=== PATIENT | female | born 1975 | race Caucasian/White ===

== ENCOUNTER 2021-05-01 18:38 | Emergency (ER) | payer OTHER ==
[2021-05-01 20:37] VITALS: BP 122/77; PULSE 69; RESP 18; TEMP 98.3
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
== END 2021-05-01 20:56 | disposition home or self-care (01) ==
LOC: EC 18:38
DX: Z02.89 Encounter for other administrative examinations (principal); F17.200 Nicotine dependence, unspecified, uncomplicated; F12.90 Cannabis use, unspecified, uncomplicated
CPT/HCPCS: 99282

== ENCOUNTER 2021-10-03 04:37 | Emergency (ER) | payer OTHER ==
[2021-10-03 04:42] VITALS: BP 137/95; PULSE 91; RESP 18; TEMP 97.9
--- NOTE | 2021-10-03 04:55 | ED ---
Upper Extremity HPI - General Chief Complaint: Extremity Injury, Upper Stated Complaint: RT wrist injury Time Seen by Provider: 10/03/21 04:40 Source: patient, RN notes reviewed, old records reviewed Mode of arrival: ambulatory Limitations: no limitations - History of Present Illness Initial Comments: This is a 45-year-old female to the emergency today. Patient Dese for evaluation of right wrist pain right wrist pain that occurred well styling her last night. 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 Patient states her pain hurts its worsening that it was yesterday. She did use ice and Tylenol with no help. Patient has no other complaints or injuries MD Complaint: Injury to:: right, wrist ((I) -: hour(s) Other Extremity Injury: Wrist: Right Handedness: right Place: home Severity scale (1-10): 3 Improves With: none Worsens With: none Context: fall Associated Symptoms: denies other symptoms Treatments Prior to Arrival: cold therapy - Related Data Allergies Allergy/AdvReac Type Severity Reaction Status Date / Time ketorolac [From Toradol] Allergy Rash/Hives Verified 10/03/21 04:43 Sulfa (Sulfonamide Allergy Anaphylaxis Verified 10/03/21 04:42 Antibiotics) Review of Systems ROS Statement: Those systems with pertinent positive or pertinent negative responses have been documented in the HPI. ROS Other: All systems not noted in ROS Statement are negative. Past Medical History Past Medical History: Cancer History of Any Multi-Drug Resistant Organisms: None Reported Past Surgical History: Hysterectomy, Tubal Ligation Past Psychological History: No Psychological Hx Reported Smoking Status: Current every day smoker Past Alcohol Use History: None Reported Past Drug Use History: Marijuana General Exam Limitations: no limitations General appearance: alert, in no apparent distress Head exam: Present: atraumatic, normocephalic, normal inspection Eye exam: Present: normal appearance, PERRL, EOMI. Absent: scleral icterus, conjunctival injection, periorbital swelling ENT exam: Present: normal exam, mucous membranes moist Neck exam: Present: normal inspection. Absent: tenderness, meningismus, lymphadenopathy Respiratory exam: Present: normal lung sounds bilaterally. Absent: respiratory distress, wheezes, rales, rhonchi, stridor Cardiovascular Exam: Present: regular rate, normal rhythm, normal heart sounds. Absent: systolic murmur, diastolic murmur, rubs, gallop, clicks GI/Abdominal exam: Present: soft, normal bowel sounds. Absent: distended, tenderness, guarding, rebound, rigid Extremities exam: Present: normal inspection, full ROM, normal capillary refill. Absent: tenderness, pedal edema, joint swelling, calf tenderness Back exam: Present: normal inspection Neurological exam: Present: alert, oriented X3, CN II-XII intact Psychiatric exam: Present: normal affect, normal mood Skin exam: Present: warm, dry, intact, normal color. Absent: rash Course Vital Signs 10/03/21 04:38 Temperature 97.9 F Pulse Rate 91 Respiratory 18 Rate Blood Pressure 137/95 O2 Sat by Pulse 99 Oximetry - Reevaluation(s) Reevaluation #1: 10/03/21 05:16 Medical record is reviewed Reevaluation #2: 10/03/21 05:16 Patient is in no significant acute distress is Reevaluation #3: 10/03/21 05:16 Patient informed of results and questions answered Medical Decision Making - Medical Decision Making 45 female to the emergency department for evaluation of right wrist pain. Patient is having persistent right wrist pain and swelling after injury while doing her hair last night. X-rays negative patient will continue Tylenol at home and cold therapy - Radiology Data Radiology results: report reviewed (X-ray wrist is negative for traumatic injury), image reviewed Disposition Clinical Impression: Right wrist sprain Disposition: HOME SELF-CARE Instructions (If sedation given, give patient instructions): Wrist Injury (ED), Wrist Sprain (ED) Is patient prescribed a controlled substance at d/c from ED?: No Referrals: Nonstaff,Physician [Primary Care Provider] - 1-2 days
--- NOTE | 2021-10-03 05:09 | XR ---
EXAMINATION TYPE: XR wrist complete RT DATE OF EXAM: 10/03/2021 COMPARISON: NONE HISTORY: Wrist pain TECHNIQUE: 4 views FINDINGS: Carpal bones are intact. I see no fracture nor dislocation. Joint spaces are fairly normal. Metacarpals are intact. IMPRESSION: Negative right wrist exam.
== END 2021-10-03 05:26 | disposition home or self-care (01) ==
LOC: EC 04:37
DX: S63.501A Unspecified sprain of right wrist, initial encounter (principal); F17.200 Nicotine dependence, unspecified, uncomplicated; F12.90 Cannabis use, unspecified, uncomplicated; Z88.1 Allergy status to other antibiotic agents; Z88.2 Allergy status to sulfonamides; Z90.710 Acquired absence of both cervix and uterus; Z98.51 Tubal ligation status; X50.0XXA Overexertion from strenuous movement or load, initial encounter
CPT/HCPCS: 99283

== ENCOUNTER 2022-02-24 17:15 | Emergency (ER) | payer OTHER ==
[2022-02-24 17:25] VITALS: PULSE 98; TEMP 98.2
--- NOTE | 2022-02-24 18:43 | ED ---
Extremity Problem HPI - General Chief complaint: Extremity Problem,Nontraumatic Stated complaint: Edema Time Seen by Provider: 02/24/22 18:30 Source: patient Mode of arrival: ambulatory Limitations: no limitations - History of Present Illness Initial comments: Pleasant 46-year-old female with history of chronic pain and recent incarceration presents with a 60 pound weight gain and generalized edema. Patient also complaining of generalized fatigue. Patient states that after she got out of [facility] she was seen at [facility] in [facility]. Patient was treated for hypokalemia. Patient was then released. Patient had a follow-up appointment on Saturday with her new physician and was told to go to the ER. Patient arriving today. Patient is on methadone for chronic pain. Patient was on Lasix when she was in [facility] but is off that medication. Patient complaining of generalized fatigue, exercise intolerance, generalized edema, and a 60 pound weight gain. No headache, no fever or chills, no changes in vision or hearing, no sore throat or difficulty with speech, no neck pain, no chest pain or shortness of breath, no abdominal pain, no nausea or vomiting, no changes in urination or bowel movements, no numbness or tingling, , no skin rashes or lesions. Past medical, surgical, social, and family history reviewed. - Related Data Previous Rx's Medication Instructions Recorded Furosemide [Lasix] 20 mg PO DAILY #20 tab 02/24/22 Potassium Chloride ER [K-Dur 20] 20 meq PO DAILY #20 tab 02/24/22 Allergies Allergy/AdvReac Type Severity Reaction Status Date / Time ketorolac [From Toradol] Allergy Rash/Hives Verified 02/24/22 17:24 Sulfa (Sulfonamide Allergy Anaphylaxis Verified 02/24/22 17:24 Antibiotics) Review of Systems ROS Statement: Those systems with pertinent positive or pertinent negative responses have been documented in the HPI. ROS Other: All systems not noted in ROS Statement are negative. Past Medical History Past Medical History: Cancer History of Any Multi-Drug Resistant Organisms: None Reported Past Surgical History: Hysterectomy, Tubal Ligation Past Psychological History: No Psychological Hx Reported Smoking Status: Current every day smoker Past Alcohol Use History: None Reported Past Drug Use History: Marijuana General Exam - General Exam Comments Initial Comments: Patient in no acute distress. Does not appear to be ill or toxic. Vital signs reviewed Limitations: no limitations General appearance: alert, in no apparent distress Head exam: Present: atraumatic, normocephalic, normal inspection Eye exam: Present: normal appearance, PERRL, EOMI. Absent: scleral icterus, conjunctival injection, periorbital swelling ENT exam: Present: normal exam, normal oropharynx, mucous membranes moist, normal external ear exam. Absent: mucous membranes dry Neck exam: Present: normal inspection, full ROM. Absent: tenderness, meningismus, lymphadenopathy Respiratory exam: Present: normal lung sounds bilaterally. Absent: respiratory distress, wheezes, rales, rhonchi, stridor, chest wall tenderness, accessory muscle use Cardiovascular Exam: Present: regular rate, normal rhythm, normal heart sounds. Absent: systolic murmur, diastolic murmur, rubs, gallop, clicks GI/Abdominal exam: Present: soft, normal bowel sounds. Absent: distended, tenderness, guarding, rebound, rigid Extremities exam: Present: normal inspection, full ROM, normal capillary refill, pedal edema (3+ pitting edema bilaterally), other (No evidence of infectious or vascular insult). Absent: tenderness, joint swelling, calf tenderness Back exam: Present: normal inspection Neurological exam: Present: alert, oriented X3, CN II-XII intact Psychiatric exam: Present: normal affect, normal mood Skin exam: Present: warm, dry, intact, normal color. Absent: rash Course Vital Signs 02/24/22 02/24/22 17:22 22:21 Temperature 98.2 F Pulse Rate 98 Respiratory 22 16 Rate Blood Pressure 128/82 137/93 O2 Sat by Pulse 98 Oximetry - Reevaluation(s) Reevaluation #1: 02/24/22 22:01 Apparently the labs were hemolyzed. I did call lab. The informing that they called down as for redraw. Reevaluation #2: 02/24/22 23:19 Medical record is reviewed Patient resting comfortably room. No distress. All findings discussed. Patient is informed of results and questions answered Patient in no distress Medical Decision Making - Medical Decision Making Generalized edema with fatigue. We will work the patient up for, patient does have chronic pain but denies alcohol abuse. Differential diagnosis, renal failure, nephrotic syndrome, less likely to be a CHF or cirrhosis however this is possible. No specific diagnostic findings to explain the patient's edema. This does raise the suspicion of lymphedema or venous insufficiency. Again, patient had a 60 pound weight gain according to her. According to our records it is 40 pounds in the last few months. Certainly this could be due to body habitus. No evidence of vascular insufficiency, negative Homans sign. No evidence of infectious process. Patient told to follow-up with her regular physician on Saturday. We'll try Lasix and potassium. Patient states that Lasix previously healthy The case was discussed in detail with ED attending physician. Presentation, findings, treatment plan discussed in detail. Patient was told to return to the ER for any signs or symptoms worsen. Told to return immediately if any other problems arise. All questions answered. Treatment plan discussed. Patient in agreement Every effort has been made to ensure accuracy of this dictation. However, due to the limitations of electronic medical records and dictation devices, errors in charting still occur. I did offer admission. However the patient is in no distress and feels well enough to go home. Patient states she will follow-up with her regular physician. I did tell the patient does not hesitate to come back if any symptoms worsen. Supervising Dr. Bolanos - Lab Data Result diagrams: 02/24/22 20:40 02/24/22 22:21 Lab Results 02/24/22 02/24/22 02/24/22 Range/Units 20:40 20:40 22:21 WBC 4.7 (3.8-10.6) k/uL RBC 3.77 L (3.80-5.40) m/uL Hgb 11.6 (11.4-16.0) gm/dL Hct 35.0 (34.0-46.0) % MCV 92.8 (80.0-100.0) fL MCH 30.7 (25.0-35.0) pg MCHC 33.1 (31.0-37.0) g/dL RDW 14.1 (11.5-15.5) % Plt Count 166 (150-450) k/uL MPV 8.2 Neutrophils % 55 % Lymphocytes % 34 % Monocytes % 7 % Eosinophils % 2 % Basophils % 1 % Neutrophils # 2.6 (1.3-7.7) k/uL Lymphocytes # 1.6 (1.0-4.8) k/uL Monocytes # 0.3 (0-1.0) k/uL Eosinophils # 0.1 (0-0.7) k/uL Basophils # 0.0 (0-0.2) k/uL PT 10.2 (9.0-12.0) sec INR 0.9 (<1.2) Sodium (137-145) mmol/L Potassium (3.5-5.1) mmol/L Chloride (98-107) mmol/L Carbon Dioxide (22-30) mmol/L Anion Gap mmol/L BUN (7-17) mg/dL Creatinine (0.52-1.04) mg/dL Est GFR (CKD-EPI)AfAm (>60 ml/min/1.73 sqM) Est GFR (CKD-EPI)NonAf (>60 ml/min/1.73 sqM) Glucose (74-99) mg/dL Plasma Lactic Acid Christos (0.7-2.0) mmol/L Calcium (8.4-10.2) mg/dL Phosphorus (2.5-4.5) mg/dL Magnesium (1.6-2.3) mg/dL Total Bilirubin (0.2-1.3) mg/dL AST (14-36) U/L ALT (4-34) U/L Alkaline Phosphatase (38-126) U/L Troponin I (0.000-0.034) ng/mL NT-Pro-B Natriuret Pep 80 pg/mL Total Protein (6.3-8.2) g/dL Albumin (3.5-5.0) g/dL TSH (0.465-4.680) mIU/L Urine Color Urine Appearance (Clear) Urine pH (5.0-8.0) Ur Specific [place] (1.001-1.035) Urine Protein (Negative) Urine Glucose (UA) (Negative) Urine Ketones (Negative) Urine Blood (Negative) Urine Nitrite (Negative) Urine Bilirubin (Negative) Urine Urobilinogen (<2.0) mg/dL Ur Leukocyte Esterase (Negative) Urine RBC (0-5) /hpf Urine WBC (0-5) /hpf Ur Squamous Epith Cells (0-4) /hpf Urine Mucus (None) /hpf 02/24/22 02/24/22 02/24/22 Range/Units 22:21 22:21 22:21 WBC (3.8-10.6) k/uL RBC (3.80-5.40) m/uL Hgb (11.4-16.0) gm/dL Hct (34.0-46.0) % MCV (80.0-100.0) fL MCH (25.0-35.0) pg MCHC (31.0-37.0) g/dL RDW (11.5-15.5) % Plt Count (150-450) k/uL MPV Neutrophils % % Lymphocytes % % Monocytes % % Eosinophils % % Basophils % % Neutrophils # (1.3-7.7) k/uL Lymphocytes # (1.0-4.8) k/uL Monocytes # (0-1.0) k/uL Eosinophils # (0-0.7) k/uL Basophils # (0-0.2) k/uL PT (9.0-12.0) sec INR (<1.2) Sodium 139 (137-145) mmol/L Potassium 3.8 (3.5-5.1) mmol/L Chloride 102 (98-107) mmol/L Carbon Dioxide 31 H (22-30) mmol/L Anion Gap 6 mmol/L BUN 15 (7-17) mg/dL Creatinine 0.63 (0.52-1.04) mg/dL Est GFR (CKD-EPI)AfAm >90 (>60 ml/min/1.73 sqM) Est GFR (CKD-EPI)NonAf >90 (>60 ml/min/1.73 sqM) Glucose 86 (74-99) mg/dL Plasma Lactic Acid Christos 1.1 (0.7-2.0) mmol/L Calcium 9.2 (8.4-10.2) mg/dL Phosphorus 4.5 (2.5-4.5) mg/dL Magnesium 2.0 (1.6-2.3) mg/dL Total Bilirubin 0.3 (0.2-1.3) mg/dL AST 122 H (14-36) U/L ALT 130 H (4-34) U/L Alkaline Phosphatase 130 H (38-126) U/L Troponin I <0.012 (0.000-0.034) ng/mL NT-Pro-B Natriuret Pep pg/mL Total Protein 7.2 (6.3-8.2) g/dL Albumin 4.0 (3.5-5.0) g/dL TSH 3.580 (0.465-4.680) mIU/L Urine Color Urine Appearance (Clear) Urine pH (5.0-8.0) Ur Specific [place] (1.001-1.035) Urine Protein (Negative) Urine Glucose (UA) (Negative) Urine Ketones (Negative) Urine Blood (Negative) Urine Nitrite (Negative) Urine Bilirubin (Negative) Urine Urobilinogen (<2.0) mg/dL Ur Leukocyte Esterase (Negative) Urine RBC (0-5) /hpf Urine WBC (0-5) /hpf Ur Squamous Epith Cells (0-4) /hpf Urine Mucus (None) /hpf 02/24/22 Range/Units 22:26 WBC (3.8-10.6) k/uL RBC (3.80-5.40) m/uL Hgb (11.4-16.0) gm/dL Hct (34.0-46.0) % MCV (80.0-100.0) fL MCH (25.0-35.0) pg MCHC (31.0-37.0) g/dL RDW (11.5-15.5) % Plt Count (150-450) k/uL MPV Neutrophils % % Lymphocytes % % Monocytes % % Eosinophils % % Basophils % % Neutrophils # (1.3-7.7) k/uL Lymphocytes # (1.0-4.8) k/uL Monocytes # (0-1.0) k/uL Eosinophils # (0-0.7) k/uL Basophils # (0-0.2) k/uL PT (9.0-12.0) sec INR (<1.2) Sodium (137-145) mmol/L Potassium (3.5-5.1) mmol/L Chloride (98-107) mmol/L Carbon Dioxide (22-30) mmol/L Anion Gap mmol/L BUN (7-17) mg/dL Creatinine (0.52-1.04) mg/dL Est GFR (CKD-EPI)AfAm (>60 ml/min/1.73 sqM) Est GFR (CKD-EPI)NonAf (>60 ml/min/1.73 sqM) Glucose (74-99) mg/dL Plasma Lactic Acid Christos (0.7-2.0) mmol/L Calcium (8.4-10.2) mg/dL Phosphorus (2.5-4.5) mg/dL Magnesium (1.6-2.3) mg/dL Total Bilirubin (0.2-1.3) mg/dL AST (14-36) U/L ALT (4-34) U/L Alkaline Phosphatase (38-126) U/L Troponin I (0.000-0.034) ng/mL NT-Pro-B Natriuret Pep pg/mL Total Protein (6.3-8.2) g/dL Albumin (3.5-5.0) g/dL TSH (0.465-4.680) mIU/L Urine Color Yellow Urine Appearance Cloudy H (Clear) Urine pH 6.0 (5.0-8.0) Ur Specific [place] 1.026 (1.001-1.035) Urine Protein Trace H (Negative) Urine Glucose (UA) Negative (Negative) Urine Ketones Negative (Negative) Urine Blood Negative (Negative) Urine Nitrite Negative (Negative) Urine Bilirubin Negative (Negative) Urine Urobilinogen 3.0 (<2.0) mg/dL Ur Leukocyte Esterase Moderate H (Negative) Urine RBC 5 (0-5) /hpf Urine WBC 11 H (0-5) /hpf Ur Squamous Epith Cells 10 H (0-4) /hpf Urine Mucus Many H (None) /hpf - EKG Data EKG Comments: EKG done at 1846 [address] the ED attending physician reveals sinus rhythm with rate of 79. Normal intervals. Normal axis. Normal QRS morphology. No acute ST or T-wave changes. No comparison study. Disposition Clinical Impression: Peripheral edema, Weight gain Disposition: HOME SELF-CARE Condition: Stable Instructions (If sedation given, give patient instructions): Leg Edema (ED) Additional Instructions: Elevate your legs as much as possible. He may benefit from some athletic compression stockings for your lower legs. Follow-up with your regular physician early next week. He'll need to have your progress monitored as well as her potassium monitored. Take the potassium supplementation with the furosemide. Follow-up with your regular physician as directed. Return to the ER immediately if any symptoms worsen, new symptoms arise, or any other problems develop. Prescriptions: Potassium Chloride ER [K-Dur 20] 20 meq PO DAILY #20 tab Furosemide [Lasix] 20 mg PO DAILY #20 tab Is patient prescribed a controlled substance at d/c from ED?: No Referrals: Lou Araujo MD [Primary Care Provider] - 02/26/22 9:00 am
--- NOTE | 2022-02-24 19:42 | XR ---
EXAMINATION TYPE: XR chest 2V DATE OF EXAM: 02/24/2022 COMPARISON: NONE HISTORY: Weakness TECHNIQUE: 2 views FINDINGS: Heart and mediastinum are normal. Lungs are clear. Diaphragm is normal. Bony thorax is inta ct. IMPRESSION: Normal chest
[2022-02-24 20:49] LABS: Basophils % (A) 1 %; Eosinophils # (A) 0.1 k/uL (0-0.7); Eosinophils % (A) 2 %; HGB 11.6 gm/dL (11.4-16.0); Lymphocytes # (A) 1.6 k/uL (1.0-4.8); Lymphocytes % (A) 34 %; MCH 30.7 pg (25.0-35.0); MCHC 33.1 g/dL (31.0-37.0); MCV 92.8 fL (80.0-100.0); Mean Platelet Volume 8.2; Monocytes # (A) 0.3 k/uL (0-1.0); Monocytes % (A) 7 %; Neutrophils # (A) 2.6 k/uL (1.3-7.7); Neutrophils % (A) 55 %; Platelet Count 166 k/uL (150-450); RBC 3.77 m/uL (3.80-5.40); RDW 14.1 % (11.5-15.5); WBC 4.7 k/uL (3.8-10.6)
[2022-02-24 22:22] VITALS: BP 137/93; RESP 16
[2022-02-24 22:33] LABS: INR 0.9 (<1.2); Prothrombin Time 10.2 sec (9.0-12.0)
[2022-02-24 22:39] LABS: ALT 130 U/L (4-34); AST 122 U/L (14-36); African American GFR (CKD) >90 (>60 ml/min/1.73 sqM); Alkaline Phosphatase 130 U/L (38-126); Anion Gap 6 mmol/L; Blood Urea Nitrogen 15 mg/dL (7-17); Calcium 9.2 mg/dL (8.4-10.2); Carbon Dioxide 31 mmol/L (22-30); Chloride 102 mmol/L (98-107); Glucose 86 mg/dL (74-99); Non-African American GFR(CKD) >90 (>60 ml/min/1.73 sqM); Phosphorus 4.5 mg/dL (2.5-4.5); Potassium 3.8 mmol/L (3.5-5.1); Sodium 139 mmol/L (137-145); Total Bilirubin 0.3 mg/dL (0.2-1.3); Total Protein 7.2 g/dL (6.3-8.2)
[2022-02-24 22:43] LABS: Appearance,Urine Cloudy (Clear); Bilirubin,Urine Negative (Negative); Blood,Urine Negative (Negative); Color,Urine Yellow; Glucose,Urine (UA) Negative (Negative); Ketones,Urine Negative (Negative); Leukocyte Esterase,Urine Moderate (Negative); Mucus,Urine Many /hpf; Nitrite,Urine Negative (Negative); Protein,Urine Trace (Negative); RBC,Urine 5 /hpf (0-5); Specific Gravity,Urine 1.026 (1.001-1.035); Squamous Epithelial Cell,Urine 10 /hpf (0-4); WBC,Urine 11 /hpf (0-5)
[2022-02-24] MEDS ORDERED: FUROSEMIDE 10 MG/ML 4 ML VIAL IV STA (23:10)
== END 2022-02-24 23:28 | disposition home or self-care (01) ==
LOC: EC 17:15
DX: R63.5 Abnormal weight gain (principal); R60.9 Edema, unspecified; F17.200 Nicotine dependence, unspecified, uncomplicated; Z88.2 Allergy status to sulfonamides; Z88.6 Allergy status to analgesic agent
CPT/HCPCS: 36415; 93005; 83880; 80053; 83605; 83735; 84100; 84443; 84484; 85025; 85610; 81001; 87086; 71046; 99284; 96374; J1940

== ENCOUNTER → 2022-06-15 | Outpatient (CLI) | payer OTHER ==
--- NOTE | 2022-06-15 14:54 | US ---
EXAMINATION TYPE: US venous doppler duplex LE DATE OF EXAM: 06/15/2022 2:38 PM COMPARISON: NONE CLINICAL HISTORY: [id number] OTHER SPECIFIED SOFT TISSUE DISORDERS. Bilateral lower extremity edema. SIDE PERFORMED: Bilateral TECHNIQUE: The lower extremity deep venous system is examined utilizing real time linear array sonog marleen with graded compression, doppler sonography and color-flow sonography. VESSELS IMAGED: Common Femoral Vein Deep Femoral Vein Greater Saphenous Vein * Femoral Vein Popliteal Vein Small Saphenous Vein * Proximal Calf Veins (* superficial vessels) Right Leg: Negative for DVT Left Leg: Negative for DVT Grayscale, color doppler, spectral doppler imaging performed of the deep veins of the lower extremiti es. There is normal flow, compressibility, vascular waveforms. IMPRESSION: No evidence of deep vein thrombosis of either lower extremity.
== END | disposition home or self-care (01) ==
LOC: RADUSWWP 14:13
PROVIDERS: ATTEND Family Medicine
DX: M79.89 Other specified soft tissue disorders (principal)
CPT/HCPCS: 93970

== ENCOUNTER → 2022-06-15 | Outpatient (CLI) | payer OTHER ==
--- NOTE | 2022-06-15 15:12 | XR ---
EXAM TYPE: LUMBAR SPINE X RAY SERIES COMPARISON: NONE HISTORY: Pain TECHNIQUE: 4 views are submitted. FINDINGS: Alignment is anatomic. The pedicles are intact. The transverse processes are intact. There is no s pondylolysis or spondylolisthesis. Diffuse osteopenia. Spina bifida occulta lumbosacral junction. Me tallic stimulator lead overlying the right iliac bone. IMPRESSION: 1. Hypertrophic and degenerative change of the spine.
== END | disposition home or self-care (01) ==
LOC: RADXRMAIN 14:44
PROVIDERS: ATTEND Family Medicine
DX: M47.816 Spondylosis without myelopathy or radiculopathy, lumbar region (principal)
CPT/HCPCS: 72110

== ENCOUNTER → 2022-08-09 | Outpatient (CLI) | payer OTHER ==
--- NOTE | 2022-08-09 15:24 | P.SLEEP ---
History of Present Illness DATE: 08/09/2022 CONSULTATION/NEW PATIENT EVALUATION HISTORY OF PRESENT ILLNESS/SLEEP-WAKE EVALUATION: 46-year-old lady had been ev aluated in the sleep center for possible obstructive sleep apnea hypopnea syndrome and excessive daytime sleepiness. SLEEP SCHEDULE: Usually sleep schedule from 11 PM to 7 AM. FALLING ASLEEP: Patient has problems with falling asleep, has TV set and bedroom. DURING SLEEP: Positive history of holding breath during sleep and also during the day. Positive history of restless leg symptoms, sleep talking, sweating. Patient wakes up from sleep multiple times. Sometimes sleeps in the chair. No history of hypnogogical hallucinations, sleep paralysis, or cataplexy. DURING THE DAY/WAKE STATE: The patient patient wake up tired, has difficulties to place attention, falling asleep during the day, has problems with memory and concentration. [place] sleepiness scale is increased to 13. Patient may take nap around 10 AM. PAST MEDICAL HISTORY: Depression, anxiety, hyperlipidemia, arthritis, headaches, pneumonia. PAST SURGICAL HISTORY: Hysterectomy, cholecystectomy, appendectomy, bladder slin g. MEDICATIONS: Methadone, Seroquel, furosemide, hydroxyzine, Zoloft. SOCIAL HISTORY: Positive for smoking for about 30 years half pack a day, continue to smoke, alcohol consumption none. FAMILY HISTORY: Hypertension, stroke, fibromyalgia, mental illness, diabetes. REVIEW OF SYSTEMS: Difficulties to initiate sleep, multiple awakenings from sleep, sleepiness during the day. No fevers. No double vision. No recent chest pain. No shortness of breath. No abdominal pain. No bleeding episodes. No blood in urine. No seizure episodes. PHYSICAL EXAMINATION: GENERAL: A pleasant patient without any distress. VITAL SIGNS: BP 121/78, HR 81, RR 16, weight 224.0 pounds, height 5 foot 9 inches, body mass index 32.9. HEENT: PERRLA, EOMI. Evaluation of oropharynx showed tongue protrudes midline, low position of soft palate Mallampati 2. NECK: Supple. No JVD. Thyroid is not palpable. 16-1/4 inches in circumference. LUNGS: Clear to percussion and to auscultation. Good air exchange. No wheezing or rhonchi. HEART: S1, S2 regular. No murmurs, gallops or rubs. ABDOMEN: Soft and nontender. Bowel sounds are present. No organomegaly appreciated. EXTREMITIES: No clubbing or cyanosis. BUSINESS DIVISION CHAIR: Awake, alert, and oriented x3. Cranial nerves 2 to 7 intact. There is no fasciculation or atrophy noted. No focal deficits observed. ASSESSMENT: 1. Multiple awakenings from sleep. Wide neck 16-1/4 inches, sleepiness, witnessed sleep apneas. Obstructive sleep apnea-hypopnea syndrome. 2. Possibly central sleep apnea, presently on treatment with methadone which may increase risk for central sleep apnea. 3. History of restless leg symptoms. 4. Sleep talking. 5 obesity body mass index 32.9. 6 . Headaches. 7. Hyperlipidemia. 8. Sleepiness [place] Sleepiness Scale increased to 13. If sleep study will be negative for obstructive sleep apnea hypopnea syndrome. May consider evaluation for possibility of hypersomnia.. 9 . Depression. 10. anxiety. PLAN: 1. Polysomnography for evaluation of patient's breathing during sleep. 2. CPAP/BiPAP titration if sleep study confirms obstructive sleep apnea- hypopnea syndrome. 3. Preferable position during sleep on the side. 4. No driving if patient feels any sleepiness. Patient is aware of civil and criminal liability for unsafe driving. 5. Sleep hygiene with regular sleep time for at least 7.5-8 hours. 6. Watching and losing weight. 7. We may consider multiple sleep latency test if sleep study negative for obstructive sleep apnea hypopnea syndrome. Thank you very much for referring this patient for consultation. Sincerely, Lars Wilson MD, PhD, FAASM. Diplomat of [place] [employer], Sleep Medicine Board by [place] [employer] [place] [employer] [facility] [place] Past Medical History Past Medical History: Cancer History of Any Multi-Drug Resistant Organisms: None Reported Past Surgical History: Hysterectomy, Tubal Ligation Past Psychological History: No Psychological Hx Reported Smoking Status: Current every day smoker Past Alcohol Use History: None Reported Past Drug Use History: Marijuana Medications and Allergies Home Medications Medication Instructions Recorded Confirmed Type Furosemide [Lasix] 20 mg PO DAILY #20 tab 02/24/22 Rx Potassium Chloride ER [K-Dur 20] 20 meq PO DAILY #20 tab 02/24/22 Rx Allergies Allergy/AdvReac Type Severity Reaction Status Date / Time ketorolac [From Toradol] Allergy Rash/Hives Verified 02/24/22 17:24 Sulfa (Sulfonamide Allergy Anaphylaxis Verified 02/24/22 17:24 Antibiotics) Sleep Note - Sleep Note Sleep Note: Temperature: Pulse Rate: Respiratory Rate: Blood Pressure: SpO2: Height: Weight: BMI: Neck Circumference:
== END ==
LOC: SLEEP 14:30
PROVIDERS: ATTEND Internal Medicine
DX: G47.33 Obstructive sleep apnea (adult) (pediatric) (principal); Z99.89 Dependence on other enabling machines and devices; E66.9 Obesity, unspecified; Z68.32 Body mass index [BMI] 32.0-32.9, adult; R51.9 Headache, unspecified; E78.5 Hyperlipidemia, unspecified; G47.8 Other sleep disorders; F32.A Depression, unspecified; F41.9 Anxiety disorder, unspecified; G25.81 Restless legs syndrome; M19.90 Unspecified osteoarthritis, unspecified site; Z88.8 Allergy status to other drugs, medicaments and biological substances; Z88.2 Allergy status to sulfonamides
CPT/HCPCS: 99211

== ENCOUNTER → 2022-10-19 | Outpatient (CLI) | payer OTHER ==
--- NOTE | 2022-10-19 09:14 | US ---
EXAMINATION TYPE: US abdomen complete DATE OF EXAM: 10/19/2022 COMPARISON: NONE CLINICAL HISTORY: R14.0 ABD DISTENSION. TECHNIQUE: Multiple sonographic images of the abdomen are obtained. FINDINGS: EXAM MEASUREMENTS: Liver Length: 17.4 cm Gallbladder Wall: Surgically absent CBD: 0.50 cm Spleen: 12.6 cm Right Kidney: 11.0 x 4.4 x 4.4 cm Left Kidney: 11.5 x 4.8 x 4.6 cm *Incidental finding, midline abdomen superior to umbilicus, two fat containing hernias are present. Pancreas: Limited view obscured by overlying bowel gas Liver: Increased attenuation, enlarged Gallbladder: Surgically absent Evidence for sonographic Noe's sign: No CBD: wnl Spleen: wnl Right Kidney: wnl Left Kidney: wnl Upper IVC: wnl Abd Aorta: wnl The intrahepatic portion of the IVC and proximal abdominal aorta are within normal limits. Common bi le duct is unremarkable. The visualized portions of the pancreas are homogenous. The spleen is unre markable. Kidneys are symmetric and free of hydronephrosis. No renal lesions are seen. IMPRESSION: The liver demonstrates changes of fatty hepatic infiltration as well as hepatomegaly.
== END | disposition home or self-care (01) ==
LOC: RADUSWWP 08:24
PROVIDERS: ATTEND Internal Medicine Gastroenterology
DX: K76.0 Fatty (change of) liver, not elsewhere classified (principal); R14.0 Abdominal distension (gaseous)
CPT/HCPCS: 76700

== ENCOUNTER → 2022-10-20 | Outpatient (CLI) | payer OTHER ==
[2022-10-20 16:26] LABS: Basophils # (A) 0.04 X 10*3/uL (0.00-0.10); Basophils % (A) 0.5 %; Eosinophils # (A) 0.12 X 10*3/uL (0.04-0.35); Eosinophils % (A) 1.6 %; HCT 43.5 % (37.2-46.3); HGB 13.7 g/dL (12.0-15.0); Immature Grans, Automated 0.4 %; Lymphocytes # (A) 2.97 X 10*3/uL (0.90-5.00); Lymphocytes % (A) 39.9 %; MCH 27.2 pg (27.0-32.0); MCHC 31.5 g/dL (32.0-37.0); MCV 86.5 fL (80.0-97.0); Mean Platelet Volume 11.2 fL (9.5-12.2); Monocytes # (A) 0.45 X 10*3/uL (0.20-1.00); NRBC Per 100 WBC 0 /100 WBCS (0.0-0.0); Neutrophils # (A) 3.83 X 10*3/uL (1.80-7.70); Neutrophils % (A) 51.6 %; Platelet Count 214 X 10*3/uL (140-440); RBC 5.03 X 10*6/uL (4.10-5.20); WBC 7.44 X 10*3/uL (4.50-10.00)
[2022-10-20 17:43] LABS: African American GFR (CKD) 91.7 (60.0-200.0); Albumin 4.5 g/dL (3.8-4.9); Albumin/Globulin Ratio 1.27 (1.60-3.17); Anion Gap 12.5 mmol/L (10.00-18.00); BUN/Creat Ratio 17.14 Ratio (12.00-20.00); Blood Urea Nitrogen 15.2 mg/dL (9.0-27.0); Calcium 9.6 mg/dL (8.7-10.3); Carbon Dioxide 27.6 mmol/L (20.0-27.5); Globulin 3.5 g/dL (1.6-3.3); Non-African American GFR(CKD) 79.1 (60.0-200.0); Potassium 4.4 mmol/L (3.5-5.5); Total Bilirubin 0.2 mg/dL (0.30-1.20)
[2022-10-20 17:49] LABS: Hepatitis B Surface AB- Quant 3.5 mIU/mL; Hepatitis B Surface Antibody Nonreactive (Nonreactive)
[2022-10-22 05:25] LABS: Hepatitis BE Antibody Nonreactive (Nonreactive)
[2022-10-22 05:26] LABS: Hepatitis BE Antigen REACTIVE (Nonreactive)
[2022-10-22 12:16] LABS: Hepatitis B Virus DNA DETECTED (Not detected); Log HBV IU/mL >9.00 (<1.00)
[2022-10-22 13:41] LABS: Hepatitis C Virus RNA, Qual Not detected (Not detected)
== END | disposition home or self-care (01) ==
LOC: LABWHC1 09:04
PROVIDERS: ATTEND Nurse Practitioner Family
DX: R76.8 Other specified abnormal immunological findings in serum (principal); Z86.19 Personal history of other infectious and parasitic diseases
CPT/HCPCS: 36415; 80053; 85025; 86704; 86706; 86707; 87350; 87517; 87521

== ENCOUNTER 2022-11-20 09:04 | Day surgery (SDC) | payer OTHER ==
[2022-11-20] MEDS ORDERED: HYDROmorphone 0.5 MG/0.5 ML SYRINGE IVP PRN (09:13)
[2022-11-20] MEDS ORDERED: ALPRAZolam 0.5 MG TAB PO PRN (09:13)
[2022-11-20 09:47] VITALS: TEMP 97.9
[2022-11-20 10:06] LABS: Mean Platelet Volume 8.4; Platelet Count 186 k/uL (150-450)
[2022-11-20 10:29] LABS: INR 0.9 (<1.2); Partial Thromboplastin Time 25.4 sec (22.0-30.0); Prothrombin Time 9.8 sec (9.0-12.0)
--- NOTE | 2022-11-20 11:28 | CT ---
EXAMINATION TYPE: CT biopsy liver DATE OF EXAM: 11/20/2022 COMPARISON: NONE HISTORY: Chronic hepatitis CT DLP: 1706mGycm The procedure was explained to the patient. The risks, complications, benefits, and alternatives wer e discussed and any questions were answered. Informed consent was obtained. Patient was placed supi ne on the CT table and prepped and draped in the usual sterile fashion. All elements of maximal barrier and sterile technique utilized. Utilizing CT guidance, an 18 gauge core biopsy needle access into the right lobe posterior segment o f the liver was achieved and a single 18 gauge core sample was obtained. The patient was stable thro ughout the procedure and remained stable upon discharge. IMPRESSION: 1. Successful 18 gauge core biopsy of the liver.
[2022-11-20 11:37] VITALS: RESP 16
[2022-11-20] MEDS ORDERED: HYDROcodone/APAP 5-325MG 1 EACH TAB PO PRN (12:30)
[2022-11-20 19:37] VITALS: BP 113/69; PULSE 86
== END 2022-11-20 14:56 | disposition home or self-care (01) ==
LOC: RADPROMAIN 09:04
PROVIDERS: ATTEND Internal Medicine Gastroenterology
DX: K75.81 Nonalcoholic steatohepatitis (NASH) (principal); B18.1 Chronic viral hepatitis B without delta-agent; K74.00 Hepatic fibrosis, unspecified
CPT/HCPCS: 85049; 85610; 85730; 88313; 88307; 36415; 47000; 77012; J1170

== ENCOUNTER → 2023-01-31 | Outpatient (CLI) | payer OTHER ==
--- NOTE | 2023-01-31 14:00 | CT ---
EXAMINATION TYPE: CT chest wo con CT DLP: 556 mGycm, Automated exposure control for dose reduction was used. DATE OF EXAM: 01/31/2023 1:29 PM COMPARISON: None CLINICAL INDICATION:Female, 47 years old with history of Z72.0; R05.3; PHH, Chronic cough w/black/gra y phlem. Current smoker TECHNIQUE: Multiple axial images were obtained through the chest. Sagittal and coronal reformats were created for review. Contrast used: (None if empty) Oral contrast used: (None if empty) FINDINGS: LUNGS/ PLEURA: Scattered nodular densities are seen throughout the lungs. Example includes the right lower lung there is a 5 mm nodule series 4 image 31, 3 mm on image 23, 3 mm left upper lung image 24, groundglass nodule image 11 right upper lobe measuring 4 mm. Additional more subtle groundglass dens ities also felt to be present.. No focal consolidation, pneumothorax or pleural effusion. Other more subtle nodules are felt to be present scattered throughout the exam. No focal consolidation, pneumoth orax or pleural effusion. Scattered streaky atelectasis in the lung bases. AIRWAY: Patent and unremarkable. No evidence for bronchiectasis or bronchial wall thickening. HEART: Size within normal limits. MEDIASTINUM: No gross evidence of adenopathy. VASCULATURE: No aortic aneurysm. MUSCULOSKELETAL: No acute osseous abnormalities SOFT TISSUES/LYMPH NODES: Unremarkable. LOWER NECK: No significant findings. UPPER ABDOMEN: Diffuse low-attenuation to the liver parenchyma. IMPRESSION: 1. No acute process within the lungs to explain the patient's symptoms. 2. Right lower lobe nodules that are up to 5 mm. Follow-up in 12 months recommended. Consider yearly low-dose lung cancer screening. 3. Hepatic steatosis.
== END | disposition home or self-care (01) ==
LOC: RADCTMAIN 13:01
PROVIDERS: ATTEND Family Medicine
DX: R91.8 Other nonspecific abnormal finding of lung field (principal); K76.0 Fatty (change of) liver, not elsewhere classified; R05.3 Chronic cough; Z72.0 Tobacco use
CPT/HCPCS: 71250

== ENCOUNTER 2023-02-07 07:24 | Emergency (ER) | payer OTHER ==
[2023-02-07] MEDS ORDERED: LIDOCAINE 5% PATCH TOPICAL STA (07:44)
--- NOTE | 2023-02-07 07:45 | ED ---
General Adult HPI - General Chief complaint: Fall Stated complaint: Fall Time Seen by Provider: 02/07/23 07:26 Source: patient, family Mode of arrival: ambulatory Limitations: no limitations - History of Present Illness Initial comments: Dictation was produced using [place] dictation software. please excuse any grammatical, word or spelling errors. Chief Complaint: 47-year-old female presents with right chest pain History of Present Illness: Is a 47-year-old female 1 week ago she slipped and tripped and fall secondary to tripping on her. She struck her left anterior chest on the side of a porcelain toilet. Patient states that her pain has been persistent since the time of injury. She is worried that she had fractured ribs. Patient also concerned that she has pneumonia. She is a regular tobacco user. Pain is worse with deep inspiration. The ROS documented in this emergency department record has been reviewed and con firmed by me. Those systems with pertinent positive or negative responses have been documented in the HPI. All other systems are other negative and/or noncontributory. - Related Data Home Medications Medication Instructions Recorded Confirmed Methadone HCl 150 mg PO DAILY 11/08/22 01/04/23 QUEtiapine FUMARATE [SEROquel] 300 mg PO HS 11/08/22 01/04/23 QUEtiapine [SEROquel] 100 mg PO DAILY 11/08/22 01/04/23 Sertraline [Zoloft] 200 mg PO DAILY 11/08/22 01/04/23 hydrOXYzine pamoate 50 mg PO TID 11/08/22 01/04/23 lisinopriL [Zestril] 10 mg PO DAILY 11/08/22 01/04/23 Previous Rx's Medication Instructions Recorded Furosemide [Lasix] 20 mg PO DAILY #20 tab 02/24/22 Potassium Chloride ER [K-Dur 20] 20 meq PO DAILY #20 tab 02/24/22 Allergies Allergy/AdvReac Type Severity Reaction Status Date / Time ketorolac [From Toradol] Allergy Rash/Hives Verified 02/07/23 07:29 Sulfa (Sulfonamide Allergy Anaphylaxis Verified 02/07/23 07:29 Antibiotics) Review of Systems ROS Statement: Those systems with pertinent positive or pertinent negative responses have been documented in the HPI. ROS Other: All systems not noted in ROS Statement are negative. Past Medical History Past Medical History: Cancer, Hypertension Additional Past Medical History / Comment(s): cervical cancer, viral hepatitis B, past IV drug abuser History of Any Multi-Drug Resistant Organisms: C-DIFF, MRSA Date of last positivie culture/infection: 2010 MDRO Source:: skin and urine Past Surgical History: Appendectomy, Cholecystectomy, Hysterectomy, Tubal Ligation Additional Past Surgical History / Comment(s): spinal cord stimulator Past Anesthesia/Blood Transfusion Reactions: No Reported Reaction Past Psychological History: Depression, PTSD Smoking Status: Current every day smoker Past Alcohol Use History: None Reported Past Drug Use History: Marijuana - Past Family History Brother(s) History Unknown: Yes Family Medical History: Cancer Additional Family Medical History / Comment(s): throat cancer General Exam - General Exam Comments Initial Comments: PHYSICAL EXAM: General Impression: Alert and oriented x3, not in acute distress HEENT: Normocephalic atraumatic, extra-ocular movements intact, pupils equal and reactive to light bilaterally, mucous membranes moist. Cardiovascular: Heart regular rate and rhythm Chest: Able to complete full sentences, no retractions, no tachypnea, palpatory tenderness to the right anterior chest Abdomen: abdomen soft, non-tender, non-distended, no organomegaly Musculoskeletal: Pulses present and equal in all extremities, no peripheral edema Motor: no focal deficits noted Neurological: CN II-XII grossly intact, no focal motor or sensory deficits noted Skin: Intact with no visualized rashes Psych: Normal affect and mood Limitations: no limitations Course Vital Signs 02/07/23 07:26 Temperature 98 F Pulse Rate 58 L Respiratory 18 Rate Blood Pressure 140/76 O2 Sat by Pulse 98 Oximetry Medical Decision Making - Medical Decision Making Was pt. sent in by a medical professional or institution (, PA, MOBILE SALES ASSISTANT, urgent care, hospital, or usp...) When possible be specific @ -No Did you speak to anyone other than the patient for history (EMS, parent, family, police, friend...)? What history was obtained from this source @ -No Did you review nursing and triage notes (agree or disagree)? Why? @ -I reviewed and agree with nursing and triage notes Were old charts reviewed (outside hosp., previous admission, EMS record, old EKG, old radiological studies, urgent care reports/EKG's, usp records)? Report findings @ -No old charts were reviewed Differential Diagnosis (chest pain, altered mental status, abdominal pain women, abdominal pain men, vaginal bleeding, musculoskeletal, weakness, fever, dyspnea, syncope, headache, dizziness, GI bleed, back pain, seizure, CVA, palpatations, mental health)? @ -Differential Chest Pain: Stable Angina, Unstable Angina, STEMI, NSTEMI Aortic Dissection, Pneumothorax, Musculoskeletal, Esophageal Spasm GERD, Cholecystitis, Pancreatitis, Zoster, this is not meant to be an all-inclusive list. EKG interpreted by me (3pts min.). @ -None done X-rays interpreted by me (1pt min.). @ -2 View chest x-ray and rib x-ray shows no acute processes CT interpreted by me (1pt min.). @ -None done U/S interpreted by me (1pt. min.). @ -None done What testing was considered but not performed or refused? (CT, X-rays, U/S, labs)? Why? @ -None What meds were considered but not given or refused? Why? @ -None Did you discuss the management of the patient with other professionals (professionals i.e. , PA, MOBILE SALES ASSISTANT, lab, RT, psych nurse, social work job titles, railroad mechanic, teacher, data officer, manager case)? Give summary @ -No Was smoking cessation discussed for >3mins.? @ -No Was critical care preformed (if so, how long)? @ -No Were there social determinants of health that impacted care today? How? (Homelessness, low income, unemployed, alcoholism, drug addiction, transportation, low edu. Level, literacy, decrease access to med. care, alf, rehab)? @ -No Was there de-escalation of care discussed even if they declined (Discuss DNR or withdrawal of care, Hospice)? DNR status @ -No What co-morbidities impacted this encounter? (DM, HTN, Smoking, COPD, CAD, Cancer, CVA, ARF, Chemo, Hep., AIDS, mental health diagnosis, sleep apnea, morb id obesity)? @ -None Was patient admitted / discharged? Hospital course, mention meds given and route, prescriptions, significant lab abnormalities, going to OR and other pertinent info. @ -47-year-old female presents with chest contusion suffered one week ago. She has persistent pain since the time of injury. Vital signs upon arrival are within acceptable limits. X-rays do not show any obvious occult injuries. Patient given a Lidoderm patch. There is perhaps possibility of nondisplaced rib fractures. Patient be discharged. Undiagnosed new problem with uncertain prognosis? @ -No Drug Therapy requiring intensive monitoring for toxicity (Heparin, Nitro, Insulin, Cardizem)? @ -No Were any procedures done? @ -No Diagnosis/symptom? Acute, or Chronic, or Acute on Chronic? Uncomplicated (without systemic symptoms) or Complicated (systemic symptoms)? @ -1. Chest contusion Side effects of treatment? @ -No Exacerbation, Progression, or Severe Exacerbation? @ -No Poses a threat to life or bodily function? How? (Chest pain, [place], IA, pneumonia, PE, COPD, DKA, ARF, appy, cholecystitis, CVA, Diverticulitis, Homicidal, Suicidal, threat to staff... and all critical care pts) @ -No Disposition Clinical Impression: Chest wall contusion Disposition: HOME SELF-CARE Condition: Good Instructions (If sedation given, give patient instructions): Costochondritis (ED) Is patient prescribed a controlled substance at d/c from ED?: No Referrals: Lou Araujo MD [Primary Care Provider] - 1-2 days Time of Disposition: 08:23
--- NOTE | 2023-02-07 08:14 | XR ---
EXAMINATION TYPE: XR chest 2V DATE OF EXAM: 02/07/2023 COMPARISON: NONE HISTORY: Chest pain TECHNIQUE: Frontal and lateral views of the chest are obtained. FINDINGS: There is no focal air space opacity. No evidence for pneumothorax. No pleural effusion. The cardiac silhouette size is within normal limits. The osseous structures are grossly intact. IMPRESSION: 1. No acute cardiopulmonary process.
--- NOTE | 2023-02-07 08:16 | XR ---
EXAMINATION TYPE: XR ribs RT DATE OF EXAM: 02/07/2023 CLINICAL HISTORY: Pain, Fall Four views of the ribs fail demonstrate evidence for displaced rib fracture or secondary sign of rib fracture. Visualized lungs are clear. No evidence for pneumothorax. IMPRESSION: 1. No displaced rib fractures seen. ICD 10 NO FRACTURE, INITIAL EVALUATION
[2023-02-07] MEDS ORDERED: traMADol 50 MG STARTER PACK 3 TAB BTL PO STA (08:22)
[2023-02-07 08:39] VITALS: BP 132/83; PULSE 79; RESP 16; TEMP 98.1
== END 2023-02-07 09:10 | disposition home or self-care (01) ==
LOC: EC 07:24
DX: S20.219A Contusion of unspecified front wall of thorax, initial encounter (principal); I10 Essential (primary) hypertension; F32.A Depression, unspecified; F17.200 Nicotine dependence, unspecified, uncomplicated; F12.90 Cannabis use, unspecified, uncomplicated; Z79.899 Other long term (current) drug therapy; Z88.6 Allergy status to analgesic agent; Z88.2 Allergy status to sulfonamides; W01.0XXA Fall on same level from slipping, tripping and stumbling without subsequent striking against object, initial encounter
CPT/HCPCS: 71046; 99284

== ENCOUNTER → 2023-03-22 | Outpatient (CLI) | payer OTHER ==
--- NOTE | 2023-03-22 11:49 | XR ---
EXAMINATION TYPE: XR ribs RT w pa chest xray DATE OF EXAM: 03/22/2023 COMPARISON: 02/07/2023 TECHNIQUE: PA and lateral views submitted. HISTORY: Pain FINDINGS: The lungs are clear and there is no pneumothorax, pleural effusion, or focal pneumonia. Heart size normal and no overt failure. Osseous structures demonstrate hypertrophic and degenerative changes of the spine. There is a mildly displaced to subacute fracture involving the anterior margin of the right seventh r ib. Surgical clips in the gallbladder fossa. IMPRESSION: 1. Mildly displaced subacute fracture anterior margin right seventh rib. Correlate with point tendern ess..
--- NOTE | 2023-03-22 11:52 | XR ---
EXAMINATION TYPE: XR thoracic spine 2V DATE OF EXAM: 03/22/2023 COMPARISON: NONE HISTORY: Pain TECHNIQUE: 3 views submitted FINDINGS: Alignment is anatomic. There is no compression deformities. Multilevel [id number] degenerative disc disease most marked involving the mid thoracic spine. IMPRESSION: 1. Multilevel [id number] degenerative disease. If symptoms are persistent consider follow-up MR I.
== END | disposition home or self-care (01) ==
LOC: RADXRMAIN 10:53
PROVIDERS: ATTEND Family Medicine
DX: M51.34 Other intervertebral disc degeneration, thoracic region (principal); S22.31XA Fracture of one rib, right side, initial encounter for closed fracture; Z91.81 History of falling; X58.XXXA Exposure to other specified factors, initial encounter
CPT/HCPCS: 72070

== ENCOUNTER 2023-05-30 08:50 | Emergency (ER) | payer OTHER ==
[2023-05-30 09:12] VITALS: RESP 18
[2023-05-30] MEDS ORDERED: HYDROcodone/APAP 5-325MG 1 EACH TAB PO STA ×2 (10:19→13:25)
[2023-05-30] MEDS ORDERED: LIDOCAINE 5% PATCH TOPICAL STA (10:19)
--- NOTE | 2023-05-30 12:44 | CT ---
EXAMINATION TYPE: CT thor lumbar spine wo con DATE OF EXAM: 05/30/2023 COMPARISON: None HISTORY: fall, back pain CT DLP: 2307 mGycm Automated exposure control for dose reduction was used. Contrast: None Technique: Axial images 3 mm thick sections. Reconstructed images in the coronal and sagittal planes. FINDINGS: T9-10: Endplate changes are present. There is loss of disc vertebral body height from the inferior en dplate of T9 and superior endplate of T10. Some surrounding soft tissue swelling appears to be presen t. Findings are compatible with acute fracture. If the patient has infectious symptoms, discitis shou ld also be considered within the differential. Remaining vertebral body heights are preserved. Disc heights are preserved. Alignment is preserved. IMPRESSION: 1. ENDPLATE CHANGES WITH SURROUNDING SOFT TISSUE SWELLING AND T9-10 CAN BE COMPATIBLE WITH ACUTE COMP RESSION FRACTURE. DIFFERENTIAL DIAGNOSIS COULD INCLUDE DISCITIS.
[2023-05-30 13:50] LABS: Basophils # (A) 0.1 k/uL (0-0.2); Basophils % (A) 1 %; Eosinophils # (A) 0.2 k/uL (0-0.7); Eosinophils % (A) 2 %; HCT 33.5 % (34.0-46.0); HGB 11.1 gm/dL (11.4-16.0); Lymphocytes # (A) 2.7 k/uL (1.0-4.8); Lymphocytes % (A) 31 %; MCH 27.6 pg (25.0-35.0); MCHC 33.1 g/dL (31.0-37.0); MCV 83.5 fL (80.0-100.0); Mean Platelet Volume 7.3; Monocytes # (A) 0.4 k/uL (0-1.0); Monocytes % (A) 5 %; Neutrophils # (A) 5.2 k/uL (1.3-7.7); Neutrophils % (A) 60 %; Platelet Count 293 k/uL (150-450); RBC 4.02 m/uL (3.80-5.40); WBC 8.7 k/uL (3.8-10.6)
[2023-05-30 14:05] LABS: African American GFR (CKD) >90 (>60 ml/min/1.73 sqM); Anion Gap 7 mmol/L; Blood Urea Nitrogen 19 mg/dL (7-17); Calcium 8.9 mg/dL (8.4-10.2); Carbon Dioxide 34 mmol/L (22-30); Chloride 98 mmol/L (98-107); Glucose 119 mg/dL (74-99); Non-African American GFR(CKD) >90 (>60 ml/min/1.73 sqM); Potassium 3.7 mmol/L (3.5-5.1); Sodium 139 mmol/L (137-145)
[2023-05-30 14:36] VITALS: TEMP 97.8
--- NOTE | 2023-05-30 15:08 | ED ---
General Adult HPI - General Chief complaint: Back Pain/Injury Stated complaint: Left side pain post fall Time Seen by Provider: 05/30/23 10:10 Source: patient, RN notes reviewed, old records reviewed Mode of arrival: ambulatory Limitations: no limitations - History of Present Illness Initial comments: Patient is a 47-year-old female presenting to the emergency department complaining of acute on chronic back pain. States she fell the other day onto her bottom. Currently is complaining of mid back pain. Seems to be more paraspinal and nature. No obvious deformities or step-offs the spine. Did not hit her head. No loss of consciousness. Fall occurred a few days ago. Presents for further evaluation at this time. Denies any infectious symptoms at this time. - Related Data Home Medications Medication Instructions Recorded Confirmed Methadone HCl 150 mg PO DAILY 11/08/22 01/04/23 QUEtiapine FUMARATE [SEROquel] 300 mg PO HS 11/08/22 01/04/23 QUEtiapine [SEROquel] 100 mg PO DAILY 11/08/22 01/04/23 Sertraline [Zoloft] 200 mg PO DAILY 11/08/22 01/04/23 hydrOXYzine pamoate 50 mg PO TID 11/08/22 01/04/23 lisinopriL [Zestril] 10 mg PO DAILY 11/08/22 01/04/23 Previous Rx's Medication Instructions Recorded Furosemide [Lasix] 20 mg PO DAILY #20 tab 02/24/22 Potassium Chloride ER [K-Dur 20] 20 meq PO DAILY #20 tab 02/24/22 Lidocaine 5% Patch [Lidoderm 5% 1 patch TOPICAL DAILY PRN 14 Days 05/30/23 Patch] #14 patch Allergies Allergy/AdvReac Type Severity Reaction Status Date / Time ketorolac [From Toradol] Allergy Rash/Hives Verified 06/01/23 08:14 Sulfa (Sulfonamide Allergy Anaphylaxis Verified 06/01/23 08:14 Antibiotics) Review of Systems ROS Statement: Those systems with pertinent positive or pertinent negative responses have been documented in the HPI. Review of Systems: CONST: Denies fever EYES: Denies blurry vision ENT: Denies nasal congestion C/V: Denies Chest pain RESP: Denies shortness of breath GI: Denies abdominal pain : Denies dysuria SKIN: Denies rash. MSK: Endorses back pain NEURO: Denies headache ROS Other: All systems not noted in ROS Statement are negative. Past Medical History Past Medical History: Cancer, Hypertension Additional Past Medical History / Comment(s): cervical cancer, viral hepatitis B, past IV drug abuser History of Any Multi-Drug Resistant Organisms: C-DIFF, MRSA Date of last positivie culture/infection: 2010 MDRO Source:: skin and urine Past Surgical History: Appendectomy, Cholecystectomy, Hysterectomy, Tubal Ligation Additional Past Surgical History / Comment(s): spinal cord stimulator Past Anesthesia/Blood Transfusion Reactions: No Reported Reaction Past Psychological History: Depression, PTSD Smoking Status: Current every day smoker Past Alcohol Use History: None Reported Past Drug Use History: Marijuana - Past Family History Brother(s) History Unknown: Yes Family Medical History: Cancer Additional Family Medical History / Comment(s): throat cancer General Exam - General Exam Comments Initial Comments: General: Appears in no acute distress. HEAD: Normal with no signs of head trauma. EYES: PERRLA, EOMI, conjunctiva normal, no discharge. ENT: Hearing grossly intact, normal oropharynx. RESPIRATORY: Clear breath sounds bilaterally. No wheezes, rales, or rhonchi. C/V: Regular rate and rhythm. S1 and S2 auscultated, peripheral pulses 2+ and intact throughout ABD: Abd is soft, nontender, nondistended EXT: Paraspinal muscle tenderness palpation of the mid and lower spine. No obvious midline tenderness palpation of the spine. No step-offs or deformities palpated spine. SKIN: No rashes or lesions observed on exposed skin. NEURO: Alert and oriented x 4. Cranial nerves II-XII intact. No focal sensory or strength deficits. Limitations: no limitations Course Vital Signs 05/30/23 05/30/23 05/30/23 08:57 12:21 14:10 Temperature 98 F 98.4 F 97.8 F Pulse Rate 92 80 79 Respiratory 18 18 18 Rate Blood Pressure 115/76 113/76 102/71 O2 Sat by Pulse 98 97 97 Oximetry 05/30/23 15:24 Temperature Pulse Rate 97 Respiratory 18 Rate Blood Pressure 130/78 O2 Sat by Pulse 95 Oximetry Medical Decision Making - Medical Decision Making Was pt. sent in by a medical professional or institution (, PA, SOFT WATER MECHANIC, urgent care, hospital, or correction...) When possible be specific @ -No Did you speak to anyone other than the patient for history (EMS, parent, family, police, friend...)? What history was obtained from this source @ -No Did you review nursing and triage notes (agree or disagree)? Why? @ -I reviewed and agree with nursing and triage notes Were old charts reviewed (outside hosp., previous admission, EMS record, old EKG, old radiological studies, urgent care reports/EKG's, correction records)? Report findings @ -No old charts were reviewed Differential Diagnosis (chest pain, altered mental status, abdominal pain women, abdominal pain men, vaginal bleeding, weakness, fever, dyspnea, syncope, headache, dizziness, GI bleed, back pain, seizure, CVA, palpatations, mental health, musculoskeletal)? @ -Differential Musculoskeletal Muscular strain, contusion, ligament sprain, fracture, arthritis, septic arthritis, bursitis, cellulitis, muscle spasm, nerve compression, DVT, arterial occlusion, herpes zoster, electrolyte abnormality, tumor.... This is not meant to be in all inclusive list EKG interpreted by me (3pts min.). @ -As above X-rays interpreted by me (1pt min.). @ -None done CT interpreted by me (1pt min.). @ -CT imaging remarkable for compression fracture at T9-10 with surrounding soft tissue inflammation. Radiology recommends rule out possible discitis based on symptoms and labs. U/S interpreted by me (1pt. min.). @ -None done What testing was considered but not performed or refused? (CT, X-rays, U/S, labs)? Why? @ -None What meds were considered but not given or refused? Why? @ -None Did you discuss the management of the patient with other professionals (professionals i.e. , PA, SOFT WATER MECHANIC, lab, RT, psych nurse, oncology social worker, deal architect, teacher, operations officer, security sales manager)? Give summary @ -No Was smoking cessation discussed for >3mins.? @ -No Was critical care preformed (if so, how long)? @ -No Were there social determinants of health that impacted care today? How? (Homelessness, low income, unemployed, alcoholism, drug addiction, transportation, low edu. Level, literacy, decrease access to med. care, prison, rehab)? @ -No Was there de-escalation of care discussed even if they declined (Discuss DNR or withdrawal of care, Hospice)? DNR status @ -No What co-morbidities impacted this encounter? (DM, HTN, Smoking, COPD, CAD, Cancer, CVA, ARF, Chemo, Hep., AIDS, mental health diagnosis, sleep apnea, morbid obesity)? @ -None Was patient admitted / discharged? Hospital course, mention meds given and route, prescriptions, significant lab abnormalities, going to OR and other pertinent info. @ -The patient's presentation and physical exam, presents complaining of mid back pain following a fall. No other symptoms. No concern for cauda equina syndrome at this time as she has no red flag symptoms. Vital signs within acceptable limits. We'll obtain CT imaging as well as provide analgesic meds. CT imaging shows compression fracture which is likely cause of her pain however cannot rule out discitis per radiology. Patient is afebrile with no other infectious symptoms at this time. We will obtain basic labs. She was in agreement this plan. Labs unremarkable. Patient is feeling improved and would like to go home. ESR is still pending and I will follow up tomorrow and call her if it is elevated. She was in agreement this plan. Vital signs remained within acceptable limits. Likely a compression fracture for which there is nothing to do Except symptomatic treatment. She was in agreement with this plan. She will follow up with orthopedic spine outpatient and will be given discharge information for them. Pain is improved at this time I will provide the patient with a prescription for lidocaine patch. I instructed the patient to follow up with their PCP in the next 1-3 days. I provided contact information for follow up with orthopedics. I explained that the patient should return to the emergency department if they experience any worsening symptoms. Strict return precautions were discussed with the patient. The patient expressed understanding of these instructions. I answered all questions that the patient had. The patient was discharged home in good condition with their prescriptions and follow up information. Undiagnosed new problem with uncertain prognosis? @ -No Drug Therapy requiring intensive monitoring for toxicity (Heparin, Nitro, Insulin, Cardizem)? @ -No Were any procedures done? @ -No Diagnosis/symptom? @ -Thoracic spine compression fracture Acute, or Chronic, or Acute on Chronic? @ -Acute Uncomplicated (without systemic symptoms) or Complicated (systemic symptoms)? @ - uncomplicated Side effects of treatment? @ -No Exacerbation, Progression, or Severe Exacerbation? @ -No Poses a threat to life or bodily function? How? (Chest pain, [place], [place], pneumonia, PE, COPD, DKA, ARF, appy, cholecystitis, CVA, Diverticulitis, Homicidal, Suicidal, threat to staff... and all critical care pts) @ -No Addendum On 05/30/2023: I attempted multiple times to contact the patient at her phone number and [phone]. She did not picking supervisor the phone and voice mailbox is full. I also contacted her next of kin listed, Romero Brandt who did answer the phone however he was not with the patient we will attempt to contact her to have her return to the emergency department for evaluation and admission. Concern is for possible discitis at this time considering the ESR did return at 100. This is elevated. We will continue to attempt to contact the patient for her to return for further evaluation for discitis. Nisha of ED [facility] attempted multiple times to contact the patient as well without success. - Lab Data Result diagrams: 05/30/23 13:38 05/30/23 13:38 Lab Results 05/30/23 05/30/23 Range/Units 13:38 13:38 WBC 8.7 (3.8-10.6) k/uL RBC 4.02 (3.80-5.40) m/uL Hgb 11.1 L (11.4-16.0) gm/dL Hct 33.5 L (34.0-46.0) % MCV 83.5 (80.0-100.0) fL MCH 27.6 (25.0-35.0) pg MCHC 33.1 (31.0-37.0) g/dL RDW 15.0 (11.5-15.5) % Plt Count 293 (150-450) k/uL MPV 7.3 Neutrophils % 60 % Lymphocytes % 31 % Monocytes % 5 % Eosinophils % 2 % Basophils % 1 % Neutrophils # 5.2 (1.3-7.7) k/uL Lymphocytes # 2.7 (1.0-4.8) k/uL Monocytes # 0.4 (0-1.0) k/uL Eosinophils # 0.2 (0-0.7) k/uL Basophils # 0.1 (0-0.2) k/uL ESR 100 H (0-20) mm/Hr Sodium 139 (137-145) mmol/L Potassium 3.7 (3.5-5.1) mmol/L Chloride 98 (98-107) mmol/L Carbon Dioxide 34 H (22-30) mmol/L Anion Gap 7 mmol/L BUN 19 H (7-17) mg/dL Creatinine 0.64 (0.52-1.04) mg/dL Est GFR (CKD-EPI)AfAm >90 (>60 ml/min/1.73 sqM) Est GFR (CKD-EPI)NonAf >90 (>60 ml/min/1.73 sqM) Glucose 119 H (74-99) mg/dL Calcium 8.9 (8.4-10.2) mg/dL Disposition Clinical Impression: Compression fracture Narrative: possible discitis Disposition: HOME SELF-CARE Condition: Good Instructions (If sedation given, give patient instructions): Acute Low Back Pain (ED) Prescriptions: Lidocaine 5% Patch [Lidoderm 5% Patch] 1 patch TOPICAL DAILY PRN 14 Days #14 patch PRN Reason: Pain Is patient prescribed a controlled substance at d/c from ED?: No Referrals: Lou Araujo MD [Primary Care Provider] - 1-2 days Denise Mason DO [Doctor of Osteopathic Medicine] - 1-2 days Time of Disposition: 15:00
[2023-05-30 15:44] VITALS: BP 130/78; PULSE 97
[2023-05-31 04:48] LABS: Erythrocyte Sedimentation Rate 100 mm/Hr (0-20)
== END 2023-05-30 15:26 | disposition home or self-care (01) ==
LOC: EC 08:50
DX: S22.079A Unspecified fracture of T9-T10 vertebra, initial encounter for closed fracture (principal); I10 Essential (primary) hypertension; F32.A Depression, unspecified; F17.200 Nicotine dependence, unspecified, uncomplicated; F12.90 Cannabis use, unspecified, uncomplicated; Z79.899 Other long term (current) drug therapy; Z88.2 Allergy status to sulfonamides; Z88.6 Allergy status to analgesic agent; W19.XXXA Unspecified fall, initial encounter
CPT/HCPCS: 36415; 72128; 72131; 80048; 85025; 85652; 99284

== ENCOUNTER 2023-06-01 08:09 | Inpatient (IN) | payer OTHER ==
[2023-06-01] MEDS ORDERED: VANCOMYCIN IV PER PHARMACY 1 EACH MISC MISCELLANE PRN (08:31)
[2023-06-01] MEDS ORDERED: CEFEPIME 2 GM in SODIUM CHLORIDE 0.9% 100 ML IVPB STA (08:33)
[2023-06-01] MEDS ORDERED: VANCOMYCIN 1,500 MG in SODIUM CHLORIDE 0.9% 500 ML 500 ML IVPB ONE (09:00)
[2023-06-01] MEDS ORDERED: HYDROmorphone 0.5 MG/0.5 ML SYRINGE IVP STA (09:44)
[2023-06-01 09:46] LABS: Basophils % (A) 0 %; Eosinophils # (A) 0.1 k/uL (0-0.7); Eosinophils % (A) 2 %; HCT 35.5 % (34.0-46.0); HGB 11.7 gm/dL (11.4-16.0); Lymphocytes # (A) 1.8 k/uL (1.0-4.8); Lymphocytes % (A) 23 %; MCH 27.2 pg (25.0-35.0); MCV 82.3 fL (80.0-100.0); Mean Platelet Volume 7.7; Monocytes # (A) 0.3 k/uL (0-1.0); Monocytes % (A) 4 %; Neutrophils # (A) 5.5 k/uL (1.3-7.7); Neutrophils % (A) 69 %; Platelet Count 305 k/uL (150-450); RBC 4.32 m/uL (3.80-5.40); RDW 14.7 % (11.5-15.5)
[2023-06-01] MEDS ORDERED: ONDANSETRON 4 MG/2 ML VIAL IVP PRN (10:09)
[2023-06-01] MEDS ORDERED: NALOXONE 0.4 MG/ML 1 ML VIAL IV PRN ×2 (10:09→12:37)
--- NOTE | 2023-06-01 10:09 | ED ---
General Adult HPI - General Chief complaint: Recheck/Abnormal Lab/Rx Stated complaint: abn labs Time Seen by Provider: 06/01/23 08:16 Source: patient, RN notes reviewed Mode of arrival: ambulatory Limitations: no limitations - History of Present Illness Initial comments: 47-year-old female presents emergency Department chief complaint of back pain. Patient seen here [address] showing possible compression fracture versus discitis. Patient has a history of back infection. Patient states that she was a former IV drug user was on methadone but now admits that she relapsed. Patient does complain of chills no reported fever. - Related Data Home Medications Medication Instructions Recorded Confirmed Methadone HCl 150 mg PO DAILY 11/08/22 01/04/23 QUEtiapine FUMARATE [SEROquel] 300 mg PO HS 11/08/22 01/04/23 QUEtiapine [SEROquel] 100 mg PO DAILY 11/08/22 01/04/23 Sertraline [Zoloft] 200 mg PO DAILY 11/08/22 01/04/23 hydrOXYzine pamoate 50 mg PO TID 11/08/22 01/04/23 lisinopriL [Zestril] 10 mg PO DAILY 11/08/22 01/04/23 Previous Rx's Medication Instructions Recorded Furosemide [Lasix] 20 mg PO DAILY #20 tab 02/24/22 Potassium Chloride ER [K-Dur 20] 20 meq PO DAILY #20 tab 02/24/22 Lidocaine 5% Patch [Lidoderm 5% 1 patch TOPICAL DAILY PRN 14 Days 05/30/23 Patch] #14 patch Allergies Allergy/AdvReac Type Severity Reaction Status Date / Time ketorolac [From Toradol] Allergy Rash/Hives Verified 06/01/23 08:14 Sulfa (Sulfonamide Allergy Anaphylaxis Verified 06/01/23 08:14 Antibiotics) Review of Systems ROS Statement: Those systems with pertinent positive or pertinent negative responses have been documented in the HPI. ROS Other: All systems not noted in ROS Statement are negative. Past Medical History Past Medical History: Cancer, Hypertension Additional Past Medical History / Comment(s): cervical cancer, viral hepatitis B, past IV drug abuser History of Any Multi-Drug Resistant Organisms: C-DIFF, MRSA Date of last positivie culture/infection: 2010 MDRO Source:: skin and urine Past Surgical History: Appendectomy, Cholecystectomy, Hysterectomy, Tubal Ligat ion Additional Past Surgical History / Comment(s): spinal cord stimulator Past Anesthesia/Blood Transfusion Reactions: No Reported Reaction Past Psychological History: Depression, PTSD Smoking Status: Current every day smoker Past Alcohol Use History: None Reported Past Drug Use History: Marijuana - Past Family History Brother(s) History Unknown: Yes Family Medical History: Cancer Additional Family Medical History / Comment(s): throat cancer General Exam Limitations: no limitations General appearance: alert, in no apparent distress Head exam: Present: atraumatic, normocephalic, normal inspection Eye exam: Present: normal appearance, PERRL, EOMI. Absent: scleral icterus, conjunctival injection, periorbital swelling Respiratory exam: Present: normal lung sounds bilaterally. Absent: respiratory distress, wheezes, rales, rhonchi, stridor Cardiovascular Exam: Present: normal rhythm, tachycardia, normal heart sounds. Absent: systolic murmur, diastolic murmur, rubs, gallop, clicks GI/Abdominal exam: Present: soft, normal bowel sounds. Absent: distended, tenderness, guarding, rebound, rigid Back exam: Present: full ROM, tenderness Course Vital Signs 06/01/23 08:11 Temperature 98.9 F Pulse Rate 104 H Respiratory 22 Rate Blood Pressure 148/83 O2 Sat by Pulse 95 Oximetry Medical Decision Making - Medical Decision Making Was pt. sent in by a medical professional or institution (EVELYN Hollis, ROPE TWISTING MACHINE OPERATOR, urgent care, hospital, or assisted...) When possible be specific @ -No Did you speak to anyone other than the patient for history (EMS, parent, family, police, friend...)? What history was obtained from this source @ -No Did you review nursing and triage notes (agree or disagree)? Why? @ -I reviewed and agree with nursing and triage notes Were old charts reviewed (outside hosp., previous admission, EMS record, old EKG, old radiological studies, urgent care reports/EKG's, assisted records)? Report findings @ -Reviewed recent laboratory studies and CT] Differential Diagnosis (chest pain, altered mental status, abdominal pain women, abdominal pain men, vaginal bleeding, weakness, fever, dyspnea, syncope, headache, dizziness, GI bleed, back pain, seizure, CVA, palpatations, mental health, musculoskeletal)? @ -Differential Back Pain: Strain, zoster, cauda equina syndrome, epidural abscess, vertebral osteomyelitis, discitis, fracture, subluxation, disc herniation, DJD, spinal stenosis, dissection, AAA, pancreatitis, peptic ulcer disease, pyelonephritis, kidney stone, this is not meant to be an all-inclusive list. EKG interpreted by me (3pts min.). @ -[None X-rays interpreted by me (1pt min.). @ -None done CT interpreted by me (1pt min.). @ -None done U/S interpreted by me (1pt. min.). @ -None done What testing was considered but not performed or refused? (CT, X-rays, U/S, labs)? Why? @ -None What meds were considered but not given or refused? Why? @ -None Did you discuss the management of the patient with other professionals (mohinder nava i.eShahana Hollis, PA, ROPE TWISTING MACHINE OPERATOR, lab, RT, psych nurse, social media community manager, spout liner, teacher, disability liaison officer, bilingual patient support caseworker)? Give summary @ -Dr. Vanegas for admission with consults for discitis Was smoking cessation discussed for >3mins.? @ -No Was critical care preformed (if so, how long)? @ -No Were there social determinants of health that impacted care today? How? (Homelessness, low income, unemployed, alcoholism, drug addiction, transportation, low edu. Level, literacy, decrease access to med. care, long term, rehab)? @ -No Was there de-escalation of care discussed even if they declined (Discuss DNR or withdrawal of care, Hospice)? DNR status @ -No What co-morbidities impacted this encounter? (DM, HTN, Smoking, COPD, CAD, Cancer, CVA, ARF, Chemo, Hep., AIDS, mental health diagnosis, sleep apnea, morbid obesity)? @ -[IV drug use Was patient admitted / discharged? Hospital course, mention meds given and route, prescriptions, significant lab abnormalities, going to OR and other pe rtinent info. @ -[Admitted patient has a significantly elevated ESR at 100, CT showed possible discitis patient does have history of IV drug use with recent relapse. Patient will be admitted for IV antibiotics and infectious disease consult Undiagnosed new problem with uncertain prognosis? @ -No Drug Therapy requiring intensive monitoring for toxicity (Heparin, Nitro, Insulin, Cardizem)? @ -No Were any procedures done? @ -No Diagnosis/symptom? @ -Discitis Acute, or Chronic, or Acute on Chronic? @ -Acute Uncomplicated (without systemic symptoms) or Complicated (systemic symptoms)? @ -Complicated Side effects of treatment? @ -No Exacerbation, Progression, or Severe Exacerbation? @ -No Poses a threat to life or bodily function? How? (Chest pain, USA, [place], pneumonia, PE, COPD, DKA, ARF, appy, cholecystitis, CVA, Diverticulitis, Homicidal, Suicidal, threat to staff... and all critical care pts) @ -No - Lab Data Result diagrams: 06/01/23 08:51 Lab Results 06/01/23 Range/Units 08:51 WBC 8.0 (3.8-10.6) k/uL RBC 4.32 (3.80-5.40) m/uL Hgb 11.7 (11.4-16.0) gm/dL Hct 35.5 (34.0-46.0) % MCV 82.3 (80.0-100.0) fL MCH 27.2 (25.0-35.0) pg MCHC 33.0 (31.0-37.0) g/dL RDW 14.7 (11.5-15.5) % Plt Count 305 (150-450) k/uL MPV 7.7 Neutrophils % 69 % Lymphocytes % 23 % Monocytes % 4 % Eosinophils % 2 % Basophils % 0 % Neutrophils # 5.5 (1.3-7.7) k/uL Lymphocytes # 1.8 (1.0-4.8) k/uL Monocytes # 0.3 (0-1.0) k/uL Eosinophils # 0.1 (0-0.7) k/uL Basophils # 0.0 (0-0.2) k/uL Disposition Clinical Impression: Discitis, Compression fracture Disposition: ADMITTED IP TO THIS HOSP Condition: Fair Referrals: Lou Araujo MD [Primary Care Provider] - 1-2 days Time of Disposition: 09:31
[2023-06-01] MEDS: HYDROcodone/APAP 5-325MG 1 EACH TAB PO PRN ×2 (10:43→20:11)
--- NOTE | 2023-06-01 12:35 | P.HPIM ---
History of Present Illness H&P Date: 06/01/23 History of present illness; patient is 47-year-old lady with past medical significant for depression, chronic methadone use, IV drug use presented to the ER for back pain. Patient was seen in the ER 2 days ago for similar complaints at which time CT imaging remarkable for compression fracture at T9-10 with surrounding soft tissue inflammation, Radiology recommends rule out possible discitis for which inflammatory markers were ordered. Patient stated that she has been feeling lethargic and weak for the last few days. Patient was also complaining of chills but didn't check her fevers. Patient was also complaining of nausea but no vomiting. No current chest pain or shortness of breath. Denies any abdominal pain. Denies any increased frequency of urination or burning micturition. Patient inflammatory markers came back elevated with ESR of 100, patient was called to come back ER Initial lab work done in the ER showed WBC 8, hemoglobin 11.7, platelet count 305, sodium 139, potassium 3.7, BUN 19, creatinine 0.64, ESR 100 patient was admitted to medicine service REVIEW OF SYSTEMS: CONSTITUTIONAL: As mentioned above HEENT: No recent visual problems or hearing problems. Denied any sore throat. CARDIOVASCULAR: No chest pain, orthopnea, PND, no palpitations, no syncope. PULMONARY: No shortness of breath, no cough, no hemoptysis. GASTROINTESTINAL: No diarrhea, no nausea, no vomiting, no abdominal pain. NEUROLOGICAL: No headaches, no weakness, no numbness. HEMATOLOGICAL: Denies any bleeding or petechiae. GENITOURINARY: Denies any burning micturition, frequency, or urgency. MUSCULOSKELETAL/RHEUMATOLOGICAL: Denies any joint pain, swelling, or any muscle pain. ENDOCRINE: Denies any polyuria or polydipsia. The rest of the 14-point review of systems is negative. PHYSICAL EXAMINATION: GENERAL: The patient is alert and oriented x3, not in any acute distress. Well developed, well nourished. HEENT: Pupils are round and equally reacting to light. EOMI. No scleral icterus. No conjunctival pallor. Normocephalic, atraumatic. No pharyngeal erythema. No thyromegaly. CARDIOVASCULAR: S1 and S2 present. No murmurs, rubs, or gallops. PULMONARY: Chest is clear to auscultation, no wheezing or crackles. ABDOMEN: Soft, nontender, nondistended, normoactive bowel sounds. No palpable organomegaly. MUSCULOSKELETAL: No joint swelling or deformity. EXTREMITIES: No cyanosis, clubbing, or pedal edema. NEUROLOGICAL: Gross neurological examination did not reveal any focal deficits. SKIN: No rashes. Assessment and plan Acute intractable back pain Compression fracture of T9-T10 Possible discitis of T9-T10 Monitor vital signs Monitor CBC Monitor CMP Continue telemetry monitoring Follow-up on blood cultures Ordered CRP Continue IV cefepime and vancomycin Continue pain management Consult ID Consult orthopedic spine Labs and medication were reviewed.. Continue same treatment. Continue with symptomatic treatment. Resume home medication. Monitor labs and vitals. DVT and GI prophylaxis. Further recommendations as per clinical course of the patient Dictation was produced using [employer] dictation software. please excuse any grammatical, word or spelling errors. Past Medical History Past Medical History: Cancer, Hypertension Additional Past Medical History / Comment(s): cervical cancer, viral hepatitis B, past IV drug abuser History of Any Multi-Drug Resistant Organisms: C-DIFF, MRSA Date of last positivie culture/infection: 2010 MDRO Source:: skin and urine Past Surgical History: Appendectomy, Cholecystectomy, Hysterectomy, Tubal Ligation Additional Past Surgical History / Comment(s): spinal cord stimulator Past Anesthesia/Blood Transfusion Reactions: No Reported Reaction Past Psychological History: Depression, PTSD Smoking Status: Current every day smoker Past Alcohol Use History: None Reported Past Drug Use History: Marijuana - Past Family History Brother(s) History Unknown: Yes Family Medical History: Cancer Additional Family Medical History / Comment(s): throat cancer Medications and Allergies Home Medications Medication Instructions Recorded Confirmed Type Furosemide [Lasix] 20 mg PO DAILY #20 tab 02/24/22 01/04/23 Rx Potassium Chloride ER [K-Dur 20] 20 meq PO DAILY #20 tab 02/24/22 01/04/23 Rx Methadone HCl 150 mg PO DAILY 11/08/22 01/04/23 History QUEtiapine FUMARATE [SEROquel] 300 mg PO HS 11/08/22 01/04/23 History QUEtiapine [SEROquel] 100 mg PO DAILY 11/08/22 01/04/23 History Sertraline [Zoloft] 200 mg PO DAILY 11/08/22 01/04/23 History hydrOXYzine pamoate 50 mg PO TID 11/08/22 01/04/23 History lisinopriL [Zestril] 10 mg PO DAILY 11/08/22 01/04/23 History Lidocaine 5% Patch [Lidoderm 5% 1 patch TOPICAL DAILY PRN 14 Days 05/30/23 Rx Patch] #14 patch Allergies Allergy/AdvReac Type Severity Reaction Status Date / Time ketorolac [From Toradol] Allergy Rash/Hives Verified 06/01/23 08:14 Sulfa (Sulfonamide Allergy Anaphylaxis Verified 06/01/23 08:14 Antibiotics) Physical Exam Vitals: Vital Signs Temp Pulse Resp BP Pulse Ox 06/01/23 08:11 98.9 F 104 H 22 148/83 95 Intake and Output 05/31/23 06/01/23 06/01/23 22:59 06:59 14:59 Other: Weight 92.079 kg Results CBC & Chem 7: 06/01/23 08:51
[2023-06-01] MEDS ORDERED: MAG HYDROX/AL HYDROX/SIMETH 30 ML CUP PO PRN (12:37)
[2023-06-01] MEDS ORDERED: MELATONIN 3 MG TABLET PO PRN (12:37)
[2023-06-01] MEDS: HYDROmorphone 0.5 MG/0.5 ML SYRINGE IVP PRN ×2 (14:03→17:39)
[2023-06-01 14:56] LABS: Erythrocyte Sedimentation Rate >130 mm/Hr (0-20)
[2023-06-01] MEDS: CEFEPIME 2 GM in SODIUM CHLORIDE 0.9% 100 ML IVPB SCH (15:43)
[2023-06-01] MEDS: VANCOMYCIN 1,500 MG in SODIUM CHLORIDE 0.9% 500 ML 500 ML IVPB SCH (17:39)
[2023-06-01] MEDS ORDERED: ALBUTEROL NEBULIZED 2.5 MG/3 ML INHALATION PRN (20:27)
[2023-06-01 20:32] LABS: ALT 71 U/L (4-34); African American GFR (CKD) >90 (>60 ml/min/1.73 sqM); Albumin 4.6 g/dL (3.5-5.0); Blood Urea Nitrogen 16 mg/dL (7-17); C Reactive Protein 7.6 mg/dL (<1.0); Calcium 9.8 mg/dL (8.4-10.2); Carbon Dioxide 18 mmol/L (22-30); Chloride 108 mmol/L (98-107); Glucose 93 mg/dL (74-99); Non-African American GFR(CKD) >90 (>60 ml/min/1.73 sqM); Total Bilirubin 0.7 mg/dL (0.2-1.3); Total Protein 9.2 g/dL (6.3-8.2)
[2023-06-01 20:37] LABS: Anion Gap 18 mmol/L; Sodium 144 mmol/L (137-145)
[2023-06-01 20:39] LABS: AST 77 U/L (14-36); Alkaline Phosphatase 222 U/L (38-126)
[2023-06-01] MEDS: hydrOXYzine pamoate 25 MG CAP PO SCH (21:39)
[2023-06-01] MEDS: QUEtiapine 100 MG TAB PO SCH (21:40)
[2023-06-02] MEDS: HYDROmorphone 0.5 MG/0.5 ML SYRINGE IVP PRN ×7 (00:13→20:19)
[2023-06-02] MEDS: CEFEPIME 2 GM in SODIUM CHLORIDE 0.9% 100 ML IVPB SCH ×4 (00:13→15:55)
[2023-06-02] MEDS: HYDROcodone/APAP 5-325MG 1 EACH TAB PO PRN ×2 (01:16→06:31)
[2023-06-02] MEDS: VANCOMYCIN 1,500 MG in SODIUM CHLORIDE 0.9% 500 ML 500 ML IVPB SCH ×2 (01:25→11:55)
[2023-06-02 07:39] LABS: Basophils % (A) 0 %; Eosinophils # (A) 0.1 k/uL (0-0.7); Eosinophils % (A) 2 %; HCT 37.6 % (34.0-46.0); HGB 11.9 gm/dL (11.4-16.0); Hypochromasia Slight; Lymphocytes # (A) 1.8 k/uL (1.0-4.8); Lymphocytes % (A) 25 %; MCH 26.5 pg (25.0-35.0); MCHC 31.6 g/dL (31.0-37.0); MCV 83.8 fL (80.0-100.0); Mean Platelet Volume 7.4; Monocytes # (A) 0.3 k/uL (0-1.0); Monocytes % (A) 5 %; Neutrophils # (A) 4.8 k/uL (1.3-7.7); Neutrophils % (A) 67 %; Platelet Count 293 k/uL (150-450); RBC 4.48 m/uL (3.80-5.40); WBC 7.2 k/uL (3.8-10.6)
[2023-06-02] MEDS: hydrOXYzine pamoate 25 MG CAP PO SCH ×3 (07:56→22:17)
[2023-06-02] MEDS: SERTRALINE 50 MG TAB PO SCH (07:56)
[2023-06-02] MEDS: QUEtiapine 100 MG TAB PO SCH ×2 (07:57→20:20)
[2023-06-02 08:18] LABS: ALT 67 U/L (4-34); AST 63 U/L (14-36); African American GFR (CKD) >90 (>60 ml/min/1.73 sqM); Albumin 3.1 g/dL (3.5-5.0); Albumin/Globulin Ratio 0.8; Alkaline Phosphatase 164 U/L (38-126); Anion Gap 9 mmol/L; Blood Urea Nitrogen 13 mg/dL (7-17); Calcium 8.4 mg/dL (8.4-10.2); Carbon Dioxide 27 mmol/L (22-30); Chloride 104 mmol/L (98-107); Glucose 90 mg/dL (74-99); Non-African American GFR(CKD) >90 (>60 ml/min/1.73 sqM); Potassium 4.4 mmol/L (3.5-5.1); Sodium 140 mmol/L (137-145); Total Bilirubin 0.5 mg/dL (0.2-1.3); Total Protein 7.1 g/dL (6.3-8.2)
[2023-06-02] MEDS ORDERED: METHADONE HCL 10 MG/ML PO ONE (09:00)
--- NOTE | 2023-06-02 09:35 | P.CNOR ---
History of Present Illness - HPI Consult date: 06/02/23 Consult reason: back pain History of present illness: Patient's 47-year-old female presenting primarily for back pain. Patient says that she's been having back pain for the past several weeks but to the point whe re it was somewhat incapacitating for her over the past several days. She denies any specific injury but says she has had multiple falls over the past 2 weeks. She says she denies any fevers but has been having low level back pain for a couple months which got worse several weeks ago and severe over the past few days. The patient has history of IV drug use and states that she had an infection in her back in the past. She says her infection and her back was in 2012 and I was treated with IV antibiotics and it cleared up. She has not had issues with infection in her back since that time. She says that she has been clean from her drugs over the past 4 years but then about several weeks ago she relaxed and has been using again. Denies any changes in her lower extremities. Denies any weakness in her lower extremity. Denies any changes in bowel bladder function. She denies any chest pain or shortness breath. Pain is primarily located at her mid back and extending up and down along her back. She says that she feels it causes her to flex forward and as she has difficulty with extending. Review of Systems As stated per HPI. She admits to IV drug use recently. She had been clean for the past 4 years but relapsed several weeks ago. She's been having this back pain over the past several weeks as well. It has been worsening for her. She does have history of what she says was a back infection in 2012 which was treated with IV antibiotics and cleared. She denies any changes in her lower extremities. Denies any neurologic deficit. Past Medical History Past Medical History: Cancer, Hypertension Additional Past Medical History / Comment(s): cervical cancer, viral hepatitis B, past IV drug abuser History of Any Multi-Drug Resistant Organisms: C-DIFF, MRSA Year Discovered:: 2010 MDRO Source:: skin and urine Past Surgical History: Appendectomy, Cholecystectomy, Hysterectomy, Tubal Ligation Additional Past Surgical History / Comment(s): spinal cord stimulator Past Anesthesia/Blood Transfusion Reactions: No Reported Reaction Past Psychological History: Depression, PTSD Smoking Status: Current every day smoker Past Alcohol Use History: None Reported Past Drug Use History: Marijuana - Past Family History Brother(s) History Unknown: Yes Family Medical History: Cancer Additional Family Medical History / Comment(s): throat cancer Medications and Allergies Home Medications Medication Instructions Recorded Confirmed Type QUEtiapine FUMARATE [SEROquel] 300 mg PO HS 11/08/22 06/01/23 History Sertraline [Zoloft] 150 mg PO DAILY 11/08/22 06/01/23 History hydrOXYzine pamoate 50 mg PO TID 11/08/22 06/01/23 History Albuterol Sulfate [Albuterol 2 puff PO RT-Q6H PRN 06/01/23 06/01/23 History Sulfate Hfa] Methadone HCl [Methadone Intensol] 1 dose PO DIRECTED 06/01/23 06/01/23 History QUEtiapine [SEROquel] 100 mg PO DAILY 06/01/23 06/01/23 History Allergies Allergy/AdvReac Type Severity Reaction Status Date / Time ketorolac [From Toradol] Allergy Rash/Hives Verified 06/01/23 12:36 Sulfa (Sulfonamide Allergy Anaphylaxis Verified 06/01/23 12:36 Antibiotics) Physical Examination Osteopathic Statement: *. No significant issues noted on an osteopathic structural exam other than those noted in the History and Physical/Consult. - L Spine: dermatomal strength & reflexes bilateral Strength: hip flexion: 5/5 (Her back is clear on exam. There is no open wounds lacerations abrasions or erythema. She has tenderness around her thoracolumbar junction. She is able to sit up and get up out of bed. She holds herself in a flexed posture) Strength: hip extension: 5/5 (He has 5 out of 5 strength the dorsal flexion plantar flexion and EHL hip flexion and knee extension. No pain with internal rotation of her hips.) Strength: knee flexion: 5/5 (She has no saddle paresthesias. Sensory is intact. Her neck is nontender. No neural tension signs.) Results - Labs Labs: Abnormal Lab Results - Last 24 Hours (Table) 06/01/23 06/01/23 06/02/23 Range/Units 08:51 08:51 06:05 ESR >130 H (0-20) mm/Hr Chloride 108 H (98-107) mmol/L Carbon Dioxide 18 L (22-30) mmol/L AST 77 H 63 H (14-36) U/L ALT 71 H 67 H (4-34) U/L Alkaline Phosphatase 222 H 164 H (38-126) U/L C-Reactive Protein 7.6 H (<1.0) mg/dL Total Protein 9.2 H (6.3-8.2) g/dL Albumin 3.1 L (3.5-5.0) g/dL H & H 06/01/23 06/02/23 Range/Units 08:51 06:05 Hgb 11.7 11.9 (11.4-16.0) gm/dL Hct 35.5 37.6 (34.0-46.0) % Result Diagrams: 06/02/23 06:05 06/02/23 06:05 - Diagnostic results CT Scan - lumbar: report reviewed, image reviewed (Computed tomography scan of her chest is reviewed for her spine which shows changes at T9 10 disc space with erosion of T9 vertebrae. I do not see evidence of abscess. There is some degenerative changes of her lumbar spine.) Assessment and Plan Assessment: Thoracolumbar back pain with positive findings on the computed tomography scan to indicate discitis versus possibility of fracture. History of IV drug abuse with recent relapse Elevated inflammatory markings of ESR greater than 100 No neurologic deficit or radiculopathy No evidence of abscess on computed tomography scan Plan: Thoracolumbar back pain with positive findings on the computed tomography scan to indicate discitis versus possibility of fracture. History of IV drug abuse with recent relapse Elevated inflammatory markings of ESR greater than 100 No neurologic deficit or radiculopathy No evidence of abscess on computed tomography scan The patient has had worsening back pain over the past several weeks and her imaging shows changes at the T9 10 disc with erosion into T9. Clinically this appears to be more in the realm of a discitis an infectious process than it does acute fracture. She has had multiple falls but I think that the discitis is more likely given her overall clinical picture. She has started on IV antibiotics appropriately with infectious disease. I have ordered an MRI of her thoracic spine to evaluate discitis in the canal, however she does have a bladder stimulator placed. Apparently better stimulator is MRI compatible and we're hopeful that we can still obtain an MRI with this if possible is able to accommodate. She could consider a biopsy of the space with interventional radiology if infectious disease request. At this point I do not have plans for surgical intervention as she is not having evidence of abscess or neurologic issues. She may have more comfort after back with a brace and we will order that for her. We'll continue to follow her with you.
--- NOTE | 2023-06-02 12:25 | P.PN ---
Subjective Progress Note Date: 06/02/23 ; patient is 47-year-old lady with past medical significant for depression, chronic methadone use, IV drug use presented to the ER for back pain. Patient was seen in the ER 2 days ago for similar complaints at which time CT imaging remarkable for compression fracture at T9-10 with surrounding soft tissue inflammation, Radiology recommends rule out possible discitis for which inflammatory markers were ordered. Patient stated that she has been feeling lethargic and weak for the last few days. Patient was also complaining of chills but didn't check her fevers. Patient was also complaining of nausea but no vomiting. No current chest pain or shortness of breath. Denies any abdominal pain. Denies any increased frequency of urination or burning micturition. Patient inflammatory markers came back elevated with ESR of 100, patient was called to come back ER Initial lab work done in the ER showed WBC 8, hemoglobin 11.7, platelet count 305, sodium 139, potassium 3.7, BUN 19, creatinine 0.64, ESR 100 patient was admitted to medicine service 06/02. Patient seen and examined. Still having back pain. Denies any urinary or bowel incontinence. Denies any numbness of her buttocks. Vital signs stable REVIEW OF SYSTEMS: CONSTITUTIONAL: No fever, no malaise,. CARDIOVASCULAR: No chest pain, no palpitations, no syncope. PULMONARY: No shortness of breath, no cough, GASTROINTESTINAL: No diarrhea, no nausea, no vomiting, no abdominal pain. NEUROLOGICAL: No headaches, no weakness, PHYSICAL EXAMINATION: GENERAL: The patient is alert and oriented x3, not in any acute distress. Well developed, well nourished. HEENT: Pupils are round and equally reacting to light. EOMI. No scleral icterus. No conjunctival pallor. Normocephalic, atraumatic. No pharyngeal erythema. No thyromegaly. CARDIOVASCULAR: S1 and S2 present. No murmurs, rubs, or gallops. PULMONARY: Chest is clear to auscultation, no wheezing or crackles. ABDOMEN: Soft, nontender, nondistended, normoactive bowel sounds. No palpable organomegaly. MUSCULOSKELETAL: No joint swelling or deformity. EXTREMITIES: No cyanosis, clubbing, or pedal edema. NEUROLOGICAL: Gross neurological examination did not reveal any focal deficits. SKIN: No rashes. Assessment and plan Acute intractable back pain Compression fracture of T9-T10 Possible discitis of T9-T10 Monitor vital signs Monitor CBC Monitor CMP Continue telemetry monitoring Follow-up on blood cultures Continue IV cefepime and vancomycin Continue pain management MRI thoracic spine ordered Orthopedic spinal following ID consulted Labs and medication were reviewed.. Continue same treatment. Continue with sy mptomatic treatment. Resume home medication. Monitor labs and vitals. DVT and GI prophylaxis. Further recommendations as per clinical course of the patient Dictation was produced using [employer] dictation software. please excuse any grammatical, word or spelling errors. Objective - Vital Signs Vital signs: Vital Signs Temp 98.0 F 06/02/23 07:30 Pulse 88 06/02/23 07:30 Resp 19 06/02/23 07:30 BP 161/100 06/02/23 07:30 Pulse Ox 93 L 06/02/23 07:30 FiO2 Intake & Output 06/01/23 06/02/23 06/02/23 19:59 06:59 18:59 Weight Other: Voiding Method # Voids - Labs CBC & Chem 7: 06/02/23 06:05 06/02/23 06:05 Labs: Abnormal Lab Results - Last 24 Hours (Table) 06/01/23 06/01/23 06/02/23 Range/Units 08:51 08:51 06:05 ESR >130 H (0-20) mm/Hr Chloride 108 H (98-107) mmol/L Carbon Dioxide 18 L (22-30) mmol/L AST 77 H 63 H (14-36) U/L ALT 71 H 67 H (4-34) U/L Alkaline Phosphatase 222 H 164 H (38-126) U/L C-Reactive Protein 7.6 H (<1.0) mg/dL Total Protein 9.2 H (6.3-8.2) g/dL Albumin 3.1 L (3.5-5.0) g/dL
[2023-06-02] MEDS ORDERED: NICOTINE GUM (POLACRILEX) 2 MG GUM BUCCAL PRN (13:39)
--- NOTE | 2023-06-02 21:17 | P.CONS ---
History of Present Illness - Reason for Consult Consult date: 06/02/23 - History of Present Illness Patient is a 47-year-old female with a past medical history significant for IV drug use last use was abot a week go patient also have a history of cervical cancer hypertension and hepatitis. Previous history of MRSA infection patient is presenting to [facility] ER yesterday morning for evaluation of back pain and apparently the patient did have a CT of the thoracolumbar spine that was completed on 05/30/2023 that was reported with endplate changes with surrounding soft tissue swelling around T910 can be compatible with acute compression fracture versus discitis for the patient was advised to come to the hospital for further evaluation patient did have a history of fall and has been complaining of more pain to the lower back area describing it to be sharp intense is almost 10 out of 10 without any radiation denies having any weakness in the leg or any bowel or bladder problems, patient on presentation to the hospital was afebrile and no fever has been recorded de souza bsequently did have a normal white count sed rate was more than 130 CRP 7.6 liver enzymes are elevated blood culture obtained currently pending patient was started on vancomycin and cefepime infectious disease was consulted for further management of antibiotic therapy patient has already been evaluated by spine surgery and MRI of the spine has been ordered Past Medical History Past Medical History: Cancer, Hypertension Additional Past Medical History / Comment(s): cervical cancer, viral hepatitis B, past IV drug abuser History of Any Multi-Drug Resistant Organisms: C-DIFF, MRSA Year Discovered:: 2010 MDRO Source:: skin and urine Past Surgical History: Appendectomy, Cholecystectomy, Hysterectomy, Tubal Ligation Additional Past Surgical History / Comment(s): spinal cord stimulator Past Anesthesia/Blood Transfusion Reactions: No Reported Reaction Past Psychological History: Depression, PTSD Smoking Status: Current every day smoker Past Alcohol Use History: None Reported Past Drug Use History: Marijuana - Past Family History Brother(s) History Unknown: Yes Family Medical History: Cancer Additional Family Medical History / Comment(s): throat cancer Medications and Allergies Home Medications Medication Instructions Recorded Confirmed Type QUEtiapine FUMARATE [SEROquel] 300 mg PO HS 11/08/22 06/01/23 History Sertraline [Zoloft] 150 mg PO DAILY 11/08/22 06/01/23 History hydrOXYzine pamoate 50 mg PO TID 11/08/22 06/01/23 History Albuterol Sulfate [Albuterol 2 puff PO RT-Q6H PRN 06/01/23 06/01/23 History Sulfate Hfa] Methadone HCl [Methadone Intensol] 1 dose PO DIRECTED 06/01/23 06/01/23 History QUEtiapine [SEROquel] 100 mg PO DAILY 06/01/23 06/01/23 History Allergies Allergy/AdvReac Type Severity Reaction Status Date / Time ketorolac [From Toradol] Allergy Rash/Hives Verified 06/01/23 12:36 Sulfa (Sulfonamide Allergy Anaphylaxis Verified 06/01/23 12:36 Antibiotics) Physical Exam Vitals: Vital Signs Temp Pulse Pulse Resp BP BP Pulse Ox 06/02/23 07:57 88 19 06/02/23 07:30 98.0 F 88 19 161/100 93 L 06/02/23 01:26 EST 97.7 F 87 16 165/77 97 06/01/23 19:40 98.4 F 92 16 125/86 91 L 06/01/23 14:16 99.1 F 83 18 126/94 95 06/01/23 13:04 98.2 F 88 18 132/83 98 Intake and Output 06/01/23 06/02/23 06/02/23 23:59 06:59 14:59 Other: Voiding Method Toilet # Voids Results CBC & Chem 7: 06/03/23 08:42 06/03/23 08:42 Labs: Abnormal Lab Results - Last 24 Hours (Table) 06/01/23 06/01/23 06/02/23 Range/Units 08:51 08:51 06:05 ESR >130 H (0-20) mm/Hr Chloride 108 H (98-107) mmol/L Carbon Dioxide 18 L (22-30) mmol/L AST 77 H 63 H (14-36) U/L ALT 71 H 67 H (4-34) U/L Alkaline Phosphatase 222 H 164 H (38-126) U/L C-Reactive Protein 7.6 H (<1.0) mg/dL Total Protein 9.2 H (6.3-8.2) g/dL Albumin 3.1 L (3.5-5.0) g/dL Assessment and Plan Plan: 1patient present to hospital with abnormal CT of the thoracolumbar spine in this patient who did have a history of IV drug use did have history of fall with the CT suspicious for compression fracture versus discitis patient do have risk factor of IV drug use that would put her at risk of discitis and osteomyelitis to the cervical spine area however the patient not running any fever did have a normal white count that would go against infectious etiology but did have elevated sed rate. 2blood culture has been obtained and results will be followed. 3await the MRI of the thoracolumbar spine to better define underlying pathology. 4May continue with the vancomycin and cefepime while waiting for the work-up to be completed while watching her kidney function closely. We will follow on clinical condition and cultures to further adjust medication if needed Thank you for this consultation we will follow the patient along with you Dictation was produced using [employer] dictation software. please excuse any grammatical, word or spelling errors. Time with Patient: Greater than 30
[2023-06-03] MEDS: HYDROmorphone 0.5 MG/0.5 ML SYRINGE IVP PRN ×7 (00:54→21:09)
[2023-06-03] MEDS: CEFEPIME 2 GM in SODIUM CHLORIDE 0.9% 100 ML IVPB SCH ×3 (00:55→17:57)
[2023-06-03] MEDS: VANCOMYCIN 1,500 MG in SODIUM CHLORIDE 0.9% 500 ML 500 ML IVPB SCH ×2 (01:03→14:04)
[2023-06-03] MEDS: SERTRALINE 50 MG TAB PO SCH (07:15)
[2023-06-03] MEDS: hydrOXYzine pamoate 25 MG CAP PO SCH ×3 (07:15→21:08)
[2023-06-03] MEDS: QUEtiapine 100 MG TAB PO SCH ×2 (07:16→20:15)
[2023-06-03 09:48] LABS: ALT 80 U/L (4-34); AST 63 U/L (14-36); African American GFR (CKD) >90 (>60 ml/min/1.73 sqM); Albumin 3.6 g/dL (3.5-5.0); Albumin/Globulin Ratio 0.9; Alkaline Phosphatase 203 U/L (38-126); Anion Gap 11 mmol/L; Blood Urea Nitrogen 10 mg/dL (7-17); Carbon Dioxide 24 mmol/L (22-30); Chloride 101 mmol/L (98-107); Globulin 4.2 g/dL; Glucose 107 mg/dL (74-99); Non-African American GFR(CKD) >90 (>60 ml/min/1.73 sqM); Potassium 4.2 mmol/L (3.5-5.1); Sodium 136 mmol/L (137-145); Total Bilirubin 0.6 mg/dL (0.2-1.3); Total Protein 7.8 g/dL (6.3-8.2)
[2023-06-03 09:59] LABS: HCT 37.3 % (34.0-46.0); HGB 12.2 gm/dL (11.4-16.0); MCH 26.8 pg (25.0-35.0); MCHC 32.7 g/dL (31.0-37.0); MCV 81.9 fL (80.0-100.0); Mean Platelet Volume 7.6; Platelet Count 299 k/uL (150-450); RBC 4.56 m/uL (3.80-5.40); RDW 14.6 % (11.5-15.5); WBC 9.4 k/uL (3.8-10.6)
[2023-06-03] MEDS ORDERED: LORazepam 2 MG/ML INJ IV STA (10:49)
--- NOTE | 2023-06-03 11:47 | P.PN ---
Subjective Progress Note Date: 06/03/23 Principal diagnosis: Abnormal computed tomography scan concerning for osteomyelitis/discitis Patient is a 47-year-old female with a past medical history significant for IV drug use last use was abot a week go patient also have a history of cervical cancer hypertension and hepatitis. Previous history of MRSA infection patient is presenting to [facility] ER for evaluation of back pain he did have abnormal CT of the lumbosacral spine in the outpatient setting. On today's evaluation that is 06/03/2023, the patient remains to be afebrile, the patient is breathing comfortably on room air , the patient denies any chest pain or cough and no sputum production, patient denies nausea/vomiting or diarrhea , no abdominal pain, still complaining of significant pain to lower back area Patient had a white count 9.4, creatinine 0.54 blood cultures are pending Objective - Vital Signs Vital signs: Vital Signs Temp 98.6 F 06/03/23 07:25 Pulse 93 06/03/23 07:25 Resp 18 06/03/23 07:25 BP 154/95 06/03/23 07:25 Pulse Ox 93 L 06/03/23 07:25 FiO2 Intake & Output 06/02/23 06/03/23 06/03/23 18:59 06:59 18:59 Other: Voiding Method Toilet Toilet # Voids 2 2 - Exam GENERAL DESCRIPTION: A middle-age female up in the room in no distress RESPIRATORY SYSTEM: Unlabored breathing , clear to auscultation anteriorly HEART: S1 S2 regular rate and rhythm , ABDOMEN: Soft , no tenderness EXTREMITIES: No edema feet - Labs CBC & Chem 7: 06/03/23 08:42 06/03/23 08:42 Labs: Abnormal Lab Results - Last 24 Hours (Table) 06/03/23 Range/Units 08:42 Sodium 136 L (137-145) mmol/L Glucose 107 H (74-99) mg/dL AST 63 H (14-36) U/L ALT 80 H (4-34) U/L Alkaline Phosphatase 203 H (38-126) U/L Microbiology - Last 24 Hours (Table) 06/01/23 08:51 Blood Culture - Preliminary Blood 06/01/23 08:51 Blood Culture - Preliminary Blood Assessment and Plan (1) Discitis Current Visit: Yes Status: Acute Code(s): M46.40 - DISCITIS, UNSPECIFIED, SITE UNSPECIFIED SNOMED Code(s): 0515578 Plan: 1patient present to hospital with abnormal CT of the thoracolumbar spine in this patient who did have a history of IV drug use did have history of fall with the CT suspicious for compression fracture versus discitis patient do have risk factor of IV drug use that would put her at risk of discitis and osteomyelitis to the cervical spine area however the patient not running any fever did have a normal white count that would go against infectious etiology but did have elevated sed rate. 2blood culture has been obtained and results are currently pending 3await the MRI of the thoracolumbar spine to better define underlying patholo gy. 4patient to continue with the vancomycin and cefepime while waiting for the work-up to be completed Dictation was produced using [employer] dictation software. please excuse any grammatical, word or spelling errors. Time with Patient: Less than 30
--- NOTE | 2023-06-03 11:50 | P.PN ---
Subjective Progress Note Date: 06/03/23 ; patient is 47-year-old lady with past medical significant for depression, chronic methadone use, IV drug use presented to the ER for back pain. Patient was seen in the ER 2 days ago for similar complaints at which time CT imaging remarkable for compression fracture at T9-10 with surrounding soft tissue inflammation, Radiology recommends rule out possible discitis for which inflammatory markers were ordered. Patient stated that she has been feeling lethargic and weak for the last few days. Patient was also complaining of chills but didn't check her fevers. Patient was also complaining of nausea but no vomiting. No current chest pain or shortness of breath. Denies any abdominal pain. Denies any increased frequency of urination or burning micturition. Patient inflammatory markers came back elevated with ESR of 100, patient was called to come back ER Initial lab work done in the ER showed WBC 8, hemoglobin 11.7, platelet count 305, sodium 139, potassium 3.7, BUN 19, creatinine 0.64, ESR 100 patient was admitted to medicine service 06/02. Patient seen and examined. Still having back pain. Denies any urinary or bowel incontinence. Denies any numbness of her buttocks. Vital signs stable 06/03. Patient seen and examined. Still having back pain. Currently scheduled for MRI today. REVIEW OF SYSTEMS: CONSTITUTIONAL: No fever, no malaise,. CARDIOVASCULAR: No chest pain, no palpitations, no syncope. PULMONARY: No shortness of breath, no cough, GASTROINTESTINAL: No diarrhea, no nausea, no vomiting, no abdominal pain. NEUROLOGICAL: No headaches, no weakness, PHYSICAL EXAMINATION: GENERAL: The patient is alert and oriented x3, not in any acute distress. Well developed, well nourished. HEENT: Pupils are round and equally reacting to light. EOMI. No scleral icterus. No conjunctival pallor. Normocephalic, atraumatic. No pharyngeal erythema. No thyromegaly. CARDIOVASCULAR: S1 and S2 present. No murmurs, rubs, or gallops. PULMONARY: Chest is clear to auscultation, no wheezing or crackles. ABDOMEN: Soft, nontender, nondistended, normoactive bowel sounds. No palpable organomegaly. MUSCULOSKELETAL: No joint swelling or deformity. EXTREMITIES: No cyanosis, clubbing, or pedal edema. NEUROLOGICAL: Gross neurological examination did not reveal any focal deficits. SKIN: No rashes. Assessment and plan Acute intractable back pain Compression fracture of T9-T10 Possible discitis of T9-T10 Monitor vital signs Monitor CBC Monitor CMP Continue telemetry monitoring Follow-up on blood cultures Continue IV cefepime and vancomycin Continue pain management MRI thoracic spine scheduled for today Orthopedic spinal following ID consulted Labs and medication were reviewed.. Continue same treatment. Continue with symptomatic treatment. Resume home medication. Monitor labs and vitals. DVT and GI prophylaxis. Further recommendations as per clinical course of the patient Dictation was produced using [employer]ana[employer]li[employer] dictation software. please excuse any grammatical, word or spelling errors. Objective - Vital Signs Vital signs: Vital Signs Temp 98.6 F 06/03/23 07:25 Pulse 93 06/03/23 07:25 Resp 18 06/03/23 07:25 BP 154/95 06/03/23 07:25 Pulse Ox 93 L 06/03/23 07:25 FiO2 Intake & Output 06/02/23 06/03/23 06/03/23 18:59 06:59 18:59 Other: Voiding Method Toilet Toilet # Voids 2 2 - Labs CBC & Chem 7: 06/03/23 08:42 06/03/23 08:42 Labs: Abnormal Lab Results - Last 24 Hours (Table) 06/03/23 Range/Units 08:42 Sodium 136 L (137-145) mmol/L Glucose 107 H (74-99) mg/dL AST 63 H (14-36) U/L ALT 80 H (4-34) U/L Alkaline Phosphatase 203 H (38-126) U/L Microbiology - Last 24 Hours (Table) 06/01/23 08:51 Blood Culture - Preliminary Blood 06/01/23 08:51 Blood Culture - Preliminary Blood
--- NOTE | 2023-06-03 12:58 | P.PN ---
Progress Note - Text Progress Note Date: 06/03/23 Orthopedic spine: History of present illness: Patient is a pleasant 47-year-old female who is seen and examined at bedside for follow-up evaluation of her thoracolumbar spine. She has not had any significant improvement as compared to yesterday. She continues to have significant pain in the midline of the mid to lower thoracic spine. She is currently sitting in a flexed for position. MRI imaging has been ordered and is currently pending. She continues to deny lower extremity weakness and radiculopathy bilaterally. She is not experiencing any neurological changes or lower extremities. She did have CT imaging of the thoracolumbar spine performed in the outpatient setting with abnormal findings. Patient also had sustained a fall. Currently being evaluated for discitis and osteomyelitis at T9-10. Patient has a history of previous IV drug user who was in remission for 4 years and recently relapsed. Patient does admit to history of previous infection at her spine in 2012 which was treated with IV antibiotics at that time with significant improvement. She has been seen by Dr. Carlos in infectious disease. Blood cultures are pending. She is currently continue with vancomycin and cefepime as prescribed by infectious disease. Patient is being seen by medicine. Her other medical diagnoses include history of hypertension, hepatitis, and cervical cancer. Bracing was ordered which she may utilize for comfort and support as needed once brace is delivered and fitted appropriately. Physical exam: Patient is awake, alert, and oriented 3 Vital signs stable Good chest excursion with deep inspiration and expiration Examination of &lumbar spine reveals skin is intact with no abrasions, lacerations, or bruises; no erythema, purulence or signs of infection She has significant pain along the midline at the mid to lower thoracic spine Patient currently sitting at the bedside chair to flex forward position Patient is currently uncomfortable and has difficulty getting in the comfortable position in regards to her thoracic pain Evidence of a ice pack over the mid to lower thoracic spine which is removed and reapplied Dorsiflexion and plantar flexion positive sustained bilaterally Lower extremity strength 5/5 bilaterally Good range of motion bilateral lower extremities Pertinent studies: CT of the thoracolumbar spine: Evidence of changes at T9-10 disc space with erosion of T9; no obvious abscess; some degenerative change of lumbar spine Assessment: Middle lower thoracic back pain with positive findings on CT imaging to indicate discitis/osteomyelitis versus possibility of fracture History of IV drug abuse with recent relapse Elevated inflammatory markers of ESR greater than 100 Hypertension Hepatitis History of cervical cancer History of spine infection requiring IV medication in 2012 Plan: 1. She has not had any significant improvement as compared to yesterday. She continues to have significant pain in the midline of the mid to lower thoracic spine. She is currently sitting in a flexed for position. MRI imaging has been ordered and is currently pending. She continues to deny lower extremity weakness and radiculopathy bilaterally. She is not experiencing any neurological change or lower extremities. She did have CT imaging of the thoracolumbar spine performed in the outpatient setting with abnormal findings. Patient also had sustained a fall. Currently being evaluated for discitis and osteomyelitis as his possibility of fracture at T9-10. Clinically, this appears to be more discitis/osteomyelitis rather than acute fracture. The MRI imaging is scheduled to be performed today. We did discuss we'll plan review this MRI imaging in detail. We will plan to discuss the results with her. Following the MRI results, we could consider biopsy of the T9-10 space with interventional radiology if requested by infectious disease. Pending the MRI results, she should continue with conservative treatment with Dr. Carlos in infectious disease. She will continue vancomycin and cefepime as prescribed by infectious disease. We will continue to follow patient closely. We're not currently planning for acute surgical intervention at her hassock or lumbar spine. She may utilize bracing as prescribed as needed for pain control.
[2023-06-03] MEDS ORDERED: METHADONE 10 MG TAB PO ONE ×2 (14:30→15:30)
[2023-06-03] MEDS: HYDROcodone/APAP 5-325MG 1 EACH TAB PO PRN (20:34)
[2023-06-04] MEDS: HYDROmorphone 0.5 MG/0.5 ML SYRINGE IVP PRN ×7 (00:41→20:09)
[2023-06-04] MEDS: VANCOMYCIN 1,500 MG in SODIUM CHLORIDE 0.9% 500 ML 500 ML IVPB SCH ×2 (01:58→17:46)
[2023-06-04] MEDS: HYDROcodone/APAP 5-325MG 1 EACH TAB PO PRN ×3 (01:58→12:02)
[2023-06-04] MEDS: CEFEPIME 2 GM in SODIUM CHLORIDE 0.9% 100 ML IVPB SCH ×3 (01:59→17:45)
[2023-06-04] MEDS ORDERED: LORazepam 2 MG/ML INJ IV PRN (08:29)
--- NOTE | 2023-06-04 08:48 | P.PN ---
Progress Note - Text Progress Note Date: 06/04/23 Orthopedic spine: History of present illness: Patient is a pleasant 47-year-old female who is seen and examined at bedside for follow-up evaluation of her thoracolumbar spine. She has not had any significant improvement as compared to yesterday. She continues to have significant pain in the midline of the mid to lower thoracic spine. She is currently thinning upright at the bedside. MRI imaging has been ordered and the patient was taken down to the MRI yesterday but she was unable to proceed forward with these imaging due to claustrophobia. She was given Ativan before hand but states it was not adequate. MRI imaging has been rescheduled for today. We're hopeful for different medication to be prescribed prior to her MRI imaging. She continues to deny lower extremity weakness and radiculopathy bilaterally. She is not experiencing any neurological changes or lower extremities. She did have CT imaging of the thoracolumbar spine performed in the outpatient setting with abnormal findings. Patient also had sustained a fall. Currently being evaluated for discitis and osteomyelitis at T9-10. Patient has a history of previous IV drug user who was in remission for 4 years and recently relapsed. She is currently working through [email or web address]. She is on methadone. They were able to prescribe a one-time dose yesterday O 150 mg. Nursing is planning to contact [email or web address] to see if they can make this medication scheduled as she does take 150 mg daily as prescribed. Patient does admit to history of previous infection at her spine in 2012 which was treated with IV antibiotics at that time with significant improvement. She has been seen by Dr. Carlos in infectious disease. Blood cultures are pending with preliminary results showing no growth. She is currently continue with vancomycin and cefepime as prescribed by infectious disease. Patient is being seen by medicine. Her other medical diagnoses include history of hypertension, hepatitis, and cervical cancer. TLSO bracing has been delivered and fitted appropriate. We did discuss she should utilize for comfort and support as needed once brace is delivered and fitted appropriately. Physical exam: Patient is awake, alert, and oriented 3 Vital signs stable Good chest excursion with deep inspiration and expiration Examination of &lumbar spine reveals skin is intact with no abrasions, lacerations, or bruises; no erythema, purulence or signs of infection She has significant pain along the midline at the mid to lower thoracic spine Patient currently sitting at the bedside chair to flex forward position Patient is currently uncomfortable and has difficulty getting in the comfortable position in regards to her thoracic pain Evidence of a ice pack over the mid to lower thoracic spine which is removed and reapplied Dorsiflexion and plantar flexion positive sustained bilaterally Lower extremity strength 5/5 bilaterally Good range of motion bilateral lower extremities Pertinent studies: CT of the thoracolumbar spine: Evidence of changes at T9-10 disc space with erosion of T9; no obvious abscess; some degenerative change of lumbar spine Assessment: Middle lower thoracic back pain with positive findings on CT imaging to indicate discitis/osteomyelitis versus possibility of fracture History of IV drug abuse with recent relapse Elevated inflammatory markers of ESR greater than 100 Hypertension Hepatitis History of cervical cancer History of spine infection requiring IV medication in 2012 Plan: 1. She has not had any significant improvement as compared to yesterday. She continues to have significant pain in the midline of the mid to lower thoracic spine. MRI imaging has been ordered and the patient was taken down to the MRI yesterday but she was unable to proceed forward with these imaging due to claustrophobia. She was given Ativan before hand but states it was not adequate. MRI imaging has been rescheduled for today. We're hopeful for different medication to be prescribed prior to her MRI imaging. She continues to deny lower extremity weakness and radiculopathy bilaterally. She is not experiencing any neurological change or lower extremities. She did have CT imaging of the thoracolumbar spine performed in the outpatient setting with abnormal findings. Patient also had sustained a fall. Currently being evaluated for discitis and osteomyelitis as his possibility of fracture at T9- 10. Clinically, this appears to be more discitis/osteomyelitis rather than acute fracture. The MRI imaging is scheduled to be performed today. We did discuss we'll plan review this MRI imaging in detail. We will plan to discuss the results with her. Following the MRI results, we could consider biopsy of the T9-10 space with interventional radiology if requested by infectious disease. Pending the MRI results, she should continue with conservative treatment with Dr. Carlos in infectious disease. She will continue vancomycin and cefepime as prescribed by infectious disease. We will continue to follow patient closely. We're not currently planning for acute surgical intervention at her hassock or lumbar spine. 2. Her TLSO brace has been delivered and fitted appropriate. She may utilize bracing as prescribed during ambulation, increased activities, and while sitting upright. 3. Patient will continue be seen and examined by multiple medical providers including infectious disease and medicine. 4. [place] will be contacted today by nursing to see the patient may receive regularly scheduled methadone 150 mg she does take this medication daily.
[2023-06-04] MEDS: hydrOXYzine pamoate 25 MG CAP PO SCH ×3 (09:37→22:22)
[2023-06-04] MEDS: SERTRALINE 50 MG TAB PO SCH (09:37)
[2023-06-04] MEDS: QUEtiapine 100 MG TAB PO SCH ×2 (09:38→19:42)
[2023-06-04] MEDS: METHADONE 10 MG TAB PO SCH (09:52)
[2023-06-04] MEDS ORDERED: VANCOMYCIN TROUGH DUE 1 EACH MISC MISCELLANE ONE (13:00)
--- NOTE | 2023-06-04 14:56 | P.PN ---
Subjective Progress Note Date: 06/04/23 Principal diagnosis: Abnormal computed tomography scan concerning for osteomyelitis/discitis Patient is a 47-year-old female with a past medical history significant for IV drug use last use was abot a week go patient also have a history of cervical cancer hypertension and hepatitis. Previous history of MRSA infection patient is presenting to [facility] ER for evaluation of back pain he did have abnormal CT of the lumbosacral spine in the outpatient setting. On today's evaluation that is 06/04/2023, the patient continues to be afebrile, the patient is breathing comfortably on room air and no need for supplemental oxygen, the patient denies any chest pain or cough , patient denies nausea/vomiting or diarrhea , no abdominal pain, the patient is still com plaining of significant pain to lower back area Patient had a white count 9.4, creatinine 0.54 as of yesterday no lab draw today, blood cultures are pending Objective - Vital Signs Vital signs: Vital Signs Temp 98.4 F 06/04/23 07:15 Pulse 84 06/04/23 07:15 Resp 19 06/04/23 07:15 BP 132/84 06/04/23 07:15 Pulse Ox 93 L 06/04/23 07:15 FiO2 Intake & Output 06/03/23 06/04/23 06/04/23 18:59 06:59 18:59 Other: Voiding Method Toilet # Voids 2 2 - Exam GENERAL DESCRIPTION: A middle-age female up in the room in no distress RESPIRATORY SYSTEM: Unlabored breathing , clear to auscultation anteriorly HEART: S1 S2 regular rate and rhythm , ABDOMEN: Soft , no tenderness EXTREMITIES: No edema feet - Labs CBC & Chem 7: 06/03/23 08:42 06/03/23 08:42 Labs: Microbiology - Last 24 Hours (Table) 06/01/23 08:51 Blood Culture - Preliminary Blood 06/01/23 08:51 Blood Culture - Preliminary Blood Assessment and Plan (1) Discitis Current Visit: Yes Status: Acute Code(s): M46.40 - DISCITIS, UNSPECIFIED, SITE UNSPECIFIED SNOMED Code(s): 4326185 Plan: 1patient present to hospital with abnormal CT of the thoracolumbar spine in this patient who did have a history of IV drug use did have history of fall with the CT suspicious for compression fracture versus discitis patient do have risk factor of IV drug use that would put her at risk of discitis and osteomyelitis to the cervical spine area however the patient not running any fever did have a normal white count that would go against infectious etiology but did have elevated sed rate. 2blood culture has been obtained and results are currently pending 3await the MRI of the thoracolumbar spine to better define underlying pathology which is scheduled for today. 4patient to continue with the vancomycin and cefepime while waiting for the work-up to be completed and monitor clinical course closely Dictation was produced using [employer] dictation software. please excuse any grammatical, word or spelling errors. Time with Patient: Less than 30
--- NOTE | 2023-06-04 15:47 | MR ---
EXAMINATION TYPE: MR thoracic spine wo/w con DATE OF EXAM: 06/04/2023 1:39 PM CLINICAL INDICATION:Female, 47 years old with history of T9-10 discitis; PHH, Discitis COMPARISON: CT 05/30/2023 TECHNIQUE: Multi planar, multi sequence imaging was performed utilizing: T1-weighted, short-tau inver milagro recovery and T2-weighted of the thoracic spine. IV Contrast: 9 cc Gadavist (none if empty) FINDINGS: Alignment: Alignment is within normal limits. Vertebral bodies have preserved heights. Spinal cord: Spinal cord is within normal limits for signal. No abnormal postcontrast enhancement. Discs: There is bony edema within the T9-T10 adjoining vertebral bodies with irregularity to the adjo ining endplates with some phlegmonous change anteriorly with high T2 streaky signal.. Postcontrast im aging demonstrates enhancement of the disc space and within the vertebral bodies. No evidence for epidural abscess formation at this time. There is narrowing of the spinal canal at T9 -T10 secondary to enhancing phlegmonous change extending from T8 mid vertebral body to the inferior e ndplate of T10. No evidence of fracture or significant spinal canal or neural foraminal stenosis. T11 vertebral body height T2 high T1 signal probable vertebral body hemangioma versus focal fat. IMPRESSION: 1. Findings most compatible with osteomyelitis discitis. No epidural abscess formation at this time. 2. Phlegmonous change at T9-T10 does narrow the spinal canal.
--- NOTE | 2023-06-04 16:35 | P.PN ---
Subjective Progress Note Date: 06/04/23 ; patient is 47-year-old lady with past medical significant for depression, chronic methadone use, IV drug use presented to the ER for back pain. Patient was seen in the ER 2 days ago for similar complaints at which time CT imaging remarkable for compression fracture at T9-10 with surrounding soft tissue inflammation, Radiology recommends rule out possible discitis for which inflammatory markers were ordered. Patient stated that she has been feeling lethargic and weak for the last few days. Patient was also complaining of chills but didn't check her fevers. Patient was also complaining of nausea but no vomiting. No current chest pain or shortness of breath. Denies any abdominal pain. Denies any increased frequency of urination or burning micturition. Patient inflammatory markers came back elevated with ESR of 100, patient was called to come back ER Initial lab work done in the ER showed WBC 8, hemoglobin 11.7, platelet count 305, sodium 139, potassium 3.7, BUN 19, creatinine 0.64, ESR 100 patient was admitted to medicine service 06/02. Patient seen and examined. Still having back pain. Denies any urinary or bowel incontinence. Denies any numbness of her buttocks. Vital signs stable 06/03. Patient seen and examined. Still having back pain. Currently scheduled for MRI today. 06/04/2023 Patient is seen in follow-up today continues to have pain awaiting documentation from [facility] to continue with methadone. Patient was scheduled for MRI yesterday although unable to handle and will give IV Ativan today and currently plan for this afternoon. Patient being followed by infectious disease along with orthopedics awaiting MRI for further treatment plans moving forward. Patient is afebrile with no reported chest pain or shortness of breath. Patient is tolerating diet and continued on cefepime and vancomycin with infectious disease following closely. Will await MRI report. REVIEW OF SYSTEMS: CONSTITUTIONAL: No fever, no malaise,. CARDIOVASCULAR: No chest pain, no palpitations, no syncope. PULMONARY: No shortness of breath, no cough, GASTROINTESTINAL: No diarrhea, no nausea, no vomiting, no abdominal pain. NEUROLOGICAL: No headaches, no weakness, PHYSICAL EXAMINATION: GENERAL: The patient is alert and oriented x3, not in any acute distress. Well developed, well nourished. Obese HEENT: Pupils are round and equally reacting to light. EOMI. No scleral icterus. No conjunctival pallor. Normocephalic, atraumatic. No pharyngeal erythema. No thyromegaly. CARDIOVASCULAR: S1 and S2 present. No murmurs, rubs, or gallops. PULMONARY: Chest is clear to auscultation, no wheezing or crackles. ABDOMEN: Soft, nontender, nondistended, normoactive bowel sounds. No palpable organomegaly. MUSCULOSKELETAL: No joint swelling or deformity. EXTREMITIES: No cyanosis, clubbing, or pedal edema. NEUROLOGICAL: Gross neurological examination did not reveal any focal deficits. SKIN: No rashes. Assessment: Acute intractable back pain Compression fracture of T9-T10 Possible discitis of T9-T10 with osteomyelitis, MRI is pending Obesity with a BMI of 30.0 History of depression with PTSD Continued ongoing nicotine dependence THC use Past IV drug abuser, relapsed DVT prophylaxis GI prophylaxis Full code Plan: Patient awaiting MRI with orthopedics and infectious disease following Continue IV antibiotics per ID recommendations Ativan given for anxiety to undergo MRI which is pending TLSO brace was ordered and patient has been approved to wear while out of bed per orthopedics and awaiting MRI to further discuss treatment plan Patient takes methadone and currently awaiting documentation from [facility] to reorder Will follow-up on repeat labs in the a.m. The impression and plan of care has been dictated by Allison Saul, Nurse Practitioner as directed. Dr. Debbie MD I have performed a history and examination and MDM of this patient, discussed the same with the dictator, and agree with the dictator's assessment and plan as written ,documented as a scribe. Based on total visit time, I have performed more than 50% of the visit. Objective - Vital Signs Vital signs: Vital Signs Temp 98.4 F 06/04/23 07:15 Pulse 84 06/04/23 07:15 Resp 19 06/04/23 07:15 BP 132/84 06/04/23 07:15 Pulse Ox 93 L 06/04/23 07:15 FiO2 Intake & Output 06/03/23 06/04/23 06/04/23 18:59 06:59 18:59 Other: Voiding Method Toilet # Voids 2 2 - Labs CBC & Chem 7: 06/03/23 08:42 06/03/23 08:42 Labs: Microbiology - Last 24 Hours (Table) 06/01/23 08:51 Blood Culture - Preliminary Blood 06/01/23 08:51 Blood Culture - Preliminary Blood
[2023-06-05] MEDS: HYDROmorphone 0.5 MG/0.5 ML SYRINGE IVP PRN ×8 (00:11→21:38)
[2023-06-05] MEDS: CEFEPIME 2 GM in SODIUM CHLORIDE 0.9% 100 ML IVPB SCH ×3 (01:14→18:56)
[2023-06-05] MEDS: VANCOMYCIN 1,500 MG in SODIUM CHLORIDE 0.9% 500 ML 500 ML IVPB SCH ×2 (06:19→19:00)
[2023-06-05 08:18] LABS: African American GFR (CKD) >90 (>60 ml/min/1.73 sqM); Anion Gap 12 mmol/L; Blood Urea Nitrogen 12 mg/dL (7-17); Calcium 9.1 mg/dL (8.4-10.2); Carbon Dioxide 22 mmol/L (22-30); Chloride 104 mmol/L (98-107); Glucose 91 mg/dL (74-99); Non-African American GFR(CKD) >90 (>60 ml/min/1.73 sqM); Sodium 138 mmol/L (137-145)
[2023-06-05 08:20] LABS: Potassium 4.6 mmol/L (3.5-5.1)
[2023-06-05] MEDS ORDERED: VANCOMYCIN TROUGH DUE 1 EACH MISC MISCELLANE ONE (08:45)
[2023-06-05] MEDS: hydrOXYzine pamoate 25 MG CAP PO SCH ×3 (08:49→23:26)
[2023-06-05] MEDS: METHADONE 10 MG TAB PO SCH (08:49)
[2023-06-05] MEDS: QUEtiapine 100 MG TAB PO SCH ×2 (08:50→23:25)
[2023-06-05] MEDS: SERTRALINE 50 MG TAB PO SCH (08:50)
[2023-06-05 11:33] LABS: Basophils # (A) 0.05 X 10*3/uL (0.00-0.10); Basophils % (A) 0.4 %; Eosinophils # (A) 0.18 X 10*3/uL (0.04-0.35); Eosinophils % (A) 1.6 %; HCT 37.4 % (37.2-46.3); HGB 11.6 g/dL (12.0-15.0); Lymphocytes # (A) 1.93 X 10*3/uL (0.90-5.00); Lymphocytes % (A) 16.8 %; MCH 25.8 pg (27.0-32.0); MCV 83.3 FL (80.0-97.0); Monocytes # (A) 0.84 X 10*3/uL (0.20-1.00); Monocytes % (A) 7.3 %; NRBC Per 100 WBC 0 X 10*3/uL (0.00-0.01); Neutrophils # (A) 8.39 X 10*3/uL (1.80-7.70); Neutrophils % (A) 73.3 %; Platelet Count 321 X 10*3/uL (140-440); RBC 4.49 X 10*6/uL (4.10-5.20); RDW 14.9 % (11.5-14.5); WBC 11.46 X 10*3/uL (4.50-10.00)
[2023-06-05 12:49] LABS: Prothrombin Time 10.8 sec (10.0-12.5)
--- NOTE | 2023-06-05 13:51 | P.PN ---
Progress Note - Text Progress Note Date: 06/05/23 Orthopedic spine: History of present illness: Patient is a pleasant 47-year-old female who is seen and examined at bedside for follow-up evaluation of her thoracolumbar spine. She has not had any significant improvement as compared to yesterday. She continues to have significant pain in the midline of the mid to lower thoracic spine. She is currently thinning upright at the bedside. MRI imaging has been performed of the thoracic spine which showed evidence of osteomyelitis discitis without evidence of epidural abscess formation. She continues to deny lower extremity weakness and radiculopathy bilaterally. She is not experiencing any neurological changes or lower extremities. Patient has a history of previous IV drug user who was in remission for 4 years and recently relapsed. She does admit that she goes to [facility] Saturday rough Saturday to receive 150 mg methadone. She is currently working through [facility]. She is on methadone. They were able to prescribe a one-time dose yesterday O 150 mg. Nursing is planning to contact [facility] to see if they can make this medication scheduled as she does take 150 mg daily as prescribed. Patient does admit to history of previous infection at her spine in 2012 with MR LONG which was treated with IV antibiotics at that time with significant improvement. She has been seen by Dr. Carlos in infectious disease. Blood cultures are pending with preliminary results showing no growth. She is currently continue with vancomycin and cefepime as prescribed by infectious disease. Antibiotic medication will be managed by infectious disease. Patient is being seen by medicine. Her other medical diagnoses include history of hypertension, hepatitis, and cervical cancer. TLSO bracing has been delivered and fitted appropriately. We did discuss she should utilize for comfort and support as needed once brace is delivered and fitted appropriately. Physical exam: Patient is awake, alert, and oriented 3 Vital signs stable Good chest excursion with deep inspiration and expiration Examination of &lumbar spine reveals skin is intact with no abrasions, lacerations, or bruises; no erythema, purulence or signs of infection Evidence of a tattoo along the midline of the mid to upper thoracic spine She has significant pain along the midline at the mid to lower thoracic spine Patient currently sitting at the bedside chair to flex forward position Patient is currently uncomfortable and has difficulty getting in the comfortable position in regards to her thoracic pain Evidence of a ice pack over the mid to lower thoracic spine which is removed and reapplied Dorsiflexion and plantar flexion positive sustained bilaterally Lower extremity strength 5/5 bilaterally Good range of motion bilateral lower extremities Pertinent studies: MRI of the thoracic spine taken on 06/04/2023: Bony edema within the T9-10 adjoining vertebral bodies with irregularity to the adjoining end plates was some phlegmonous change anteriorly with high T2 streaky signal with enhancement of the disc space and within the vertebral bodies most compatible with osteomyelitis discitis; no epidural abscess formation at this time CT of the thoracolumbar spine: Evidence of changes at T9-10 disc space with erosion of T9; no obvious abscess; some degenerative change of lumbar spine Assessment: 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 She has not had any significant improvement as compared to yesterday. She continues to have significant pain in the midline of the mid to lower thoracic spine. She continues to deny lower extremity weakness and radiculopathy bilaterally. She is not experiencing any neurological change or lower ext remities. Clinically, this appears to be more discitis/osteomyelitis rather than acute fracture. Thoracic MRI imaging has been performed which showed evidence of osteomyelitis discitis without evidence of epidural abscess formation. Currently, we are not planning for acute surgical intervention in regards to her thoracic spine. She does not have evidence of epidural abscess. She will continue with treatment and evaluation by infectious disease. Infectious disease has consulted interventional radiology for aspiration culture at the level of T9-10. She will continue vancomycin and cefepime as prescribed by infectious disease. Infectious disease will continue to manage her antibiotic medications. We did discuss the from an orthopedic spine standpoint, patient will be cleared for discharge as we are currently planning for conservative treatment at this time. Patient states she would like to continue conservative treatment as well and does not wish to have any surgical intervention at her thoracic spine if she is able to avoid. Patient may follow-up with Fam Gillis PA-C or Dr. Bello Mason at [facility] in 2-3 weeks following discharge. 2. Her TLSO brace has been delivered and fitted appropriately. She may utilize bracing as prescribed during ambulation, increased activities, and while sitting upright. 3. Patient will continue be seen and examined by multiple medical providers including infectious disease and medicine. 4. [place] was planning to be contacted by nursing to see the patient may receive regularly scheduled methadone 150 mg she does take this medication daily.
--- NOTE | 2023-06-05 14:50 | CT ---
EXAMINATION TYPE: CT guided aspiration DATE OF EXAM: 06/05/2023 COMPARISON: MRI 06/04/2023, CT scan 05/30/2023 HISTORY: T9/T10 aspiration CT DLP: 1017 mGycm The procedure is discussed with the patient, the risks, complications, benefits and alternatives, wer e discussed and any questions were answered. Informed consent was obtained. The patient is placed p shreya on the CT table, prepped and draped in the usual sterile fashion. Utilizing a 22-gauge Chiba needle access into the CT 9-T10 requested disc space was achieved with 2 s amples obtained. Samples sent to pathology. Pathology pending. All elements of maximal barrier and sterile technique were utilized. The patient remained stable throughout the procedure with no immedi ate postprocedural complication. IMPRESSION: 1. Successful CT guided fine needle aspiration of the T9-T10 paraspinal space and disc space
[2023-06-06] MEDS: CEFEPIME 2 GM in SODIUM CHLORIDE 0.9% 100 ML IVPB SCH ×3 (01:51→17:38)
[2023-06-06] MEDS: HYDROmorphone 0.5 MG/0.5 ML SYRINGE IVP PRN ×8 (01:52→23:31)
[2023-06-06] MEDS ORDERED: VANCOMYCIN TROUGH DUE 1 EACH MISC MISCELLANE ONE (05:00)
--- NOTE | 2023-06-06 05:24 | P.PN ---
Subjective Progress Note Date: 06/05/23 ; patient is 47-year-old lady with past medical significant for depression, chronic methadone use, IV drug use presented to the ER for back pain. Patient was seen in the ER 2 days ago for similar complaints at which time CT imaging remarkable for compression fracture at T9-10 with surrounding soft tissue inflammation, Radiology recommends rule out possible discitis for which inflammatory markers were ordered. Patient stated that she has been feeling lethargic and weak for the last few days. Patient was also complaining of chills but didn't check her fevers. Patient was also complaining of nausea but no vomiting. No current chest pain or shortness of breath. Denies any abdominal pain. Denies any increased frequency of urination or burning micturition. Patient inflammatory markers came back elevated with ESR of 100, patient was called to come back ER Initial lab work done in the ER showed WBC 8, hemoglobin 11.7, platelet count 305, sodium 139, potassium 3.7, BUN 19, creatinine 0.64, ESR 100 patient was admitted to medicine service 06/02. Patient seen and examined. Still having back pain. Denies any urinary or bowel incontinence. Denies any numbness of her buttocks. Vital signs stable 06/03. Patient seen and examined. Still having back pain. Currently scheduled for MRI today. 06/04/2023 Patient is seen in follow-up today continues to have pain awaiting documentation from [facility] to continue with methadone. Patient was scheduled for MRI yesterday although unable to handle and will give IV Ativan today and currently plan for this afternoon. Patient being followed by infectious disease along with orthopedics awaiting MRI for further treatment plans moving forward. Patient is afebrile with no reported chest pain or shortness of breath. Patient is tolerating diet and continued on cefepime and vancomycin with infectious disease following closely. Will await MRI report. 06/05/2023 Patient is seen in follow-up today with orthopedics and infectious disease following. Patient underwent MRI which was suggestive of osteomyelitis and discitis with no plans of surgical intervention per orthopedics and will be requiring antibiotic therapy. Infectious disease following recommending IR consultation for needle aspiration of the area to determine appropriate discharge antibiotics. There is concern as patient had history of IV drug abuse and relapse the patient will be unable to safely receive a PICC line for outpatient antibiotic therapy. Case management/social work will be following working on discharge planning and arranging for IV antibiotic therapy outpatient possibly at the clinic. Patient does go to outpatient [facility] re[facility] Saturday through Saturday and is continued on methadone. Patient reports a fall yesterday, unwitnessed and having back pain which she has been having since admission. REVIEW OF SYSTEMS: CONSTITUTIONAL: No fever, no malaise,. CARDIOVASCULAR: No chest pain, no palpitations, no syncope. PULMONARY: No shortness of breath, no cough, GASTROINTESTINAL: No diarrhea, no nausea, no vomiting, no abdominal pain. NEUROLOGICAL: No headaches, no weakness, reports continued mid back pain PHYSICAL EXAMINATION: GENERAL: The patient is alert and oriented x3, not in any acute distress. Well developed, well nourished. Obese HEENT: Pupils are round and equally reacting to light. EOMI. No scleral icterus. No conjunctival pallor. Normocephalic, atraumatic. No pharyngeal erythema. No thyromegaly. CARDIOVASCULAR: S1 and S2 present. No murmurs, rubs, or gallops. PULMONARY: Chest is clear to auscultation, no wheezing or crackles. ABDOMEN: Soft, nontender, nondistended, normoactive bowel sounds. No palpable o rganomegaly. MUSCULOSKELETAL: No joint swelling or deformity. EXTREMITIES: No cyanosis, clubbing, or pedal edema. NEUROLOGICAL: Gross neurological examination did not reveal any focal deficits. SKIN: No rashes. Assessment: Acute intractable back pain Compression fracture of T9-T10 discitis of T9-T10 with osteomyelitis, per MRI Obesity with a BMI of 30.0 History of depression with PTSD Continued ongoing nicotine dependence THC use Past IV drug abuser, relapsed DVT prophylaxis GI prophylaxis Full code Plan: Patient underwent MRI suggestive of discitis with osteomyelitis with orthopedics and infectious disease following. Interventional radiology consulted for needle aspiration of this area to determine discharge antibiotics appropriately Continue IV antibiotics per ID recommendations TLSO brace was ordered and patient has been approved to wear while out of bed per orthopedics. Patient has not been wearing the brace and up and walking Patient takes methadone and has been confirmed from [facility] and reordered Await needle aspiration results to determine discharge antibiotics and treatment plan moving forward. Case management to follow as patient has history of IV drug abuse with relapse which causes extreme concern for receiving a PICC line and outpatient IV antibiotics. Patient may likely have to come to the clinic for antibiotic infusions The impression and plan of care has been dictated by Allison Saul, Nurse Practitioner as directed. Dr. Debbie MD I have performed a history and examination and MDM of this patient, discussed the same with the dictator, and agree with the dictator's assessment and plan as written ,documented as a scribe. Based on total visit time, I have performed more than 50% of the visit. Objective - Vital Signs Vital signs: Vital Signs Temp 98.4 F 06/05/23 07:14 Pulse 74 06/05/23 07:14 Resp 18 06/05/23 07:14 BP 143/83 06/05/23 07:14 Pulse Ox 97 06/05/23 07:14 FiO2 Intake & Output 06/04/23 06/05/23 06/05/23 18:59 06:59 18:59 Other: Voiding Method Toilet # Voids 3 5 - Labs CBC & Chem 7: 06/05/23 06:42 06/05/23 06:42 Labs: Microbiology - Last 24 Hours (Table) 06/01/23 08:51 Blood Culture - Preliminary Blood 06/01/23 08:51 Blood Culture - Preliminary Blood
[2023-06-06] MEDS: VANCOMYCIN 1,500 MG in SODIUM CHLORIDE 0.9% 500 ML 500 ML IVPB SCH ×2 (05:32→17:38)
[2023-06-06 06:28] LABS: African American GFR (CKD) >90 (>60 ml/min/1.73 sqM); Anion Gap 8 mmol/L; Blood Urea Nitrogen 13 mg/dL (7-17); Calcium 8.8 mg/dL (8.4-10.2); Carbon Dioxide 27 mmol/L (22-30); Chloride 102 mmol/L (98-107); Glucose 125 mg/dL (74-99); Non-African American GFR(CKD) >90 (>60 ml/min/1.73 sqM); Potassium 3.8 mmol/L (3.5-5.1); Sodium 137 mmol/L (137-145)
[2023-06-06] MEDS: METHADONE 10 MG TAB PO SCH (08:41)
[2023-06-06] MEDS: SERTRALINE 50 MG TAB PO SCH (08:43)
[2023-06-06] MEDS: QUEtiapine 100 MG TAB PO SCH ×2 (08:43→20:30)
[2023-06-06] MEDS: hydrOXYzine pamoate 25 MG CAP PO SCH ×3 (08:43→20:29)
--- NOTE | 2023-06-06 10:21 | P.PN ---
Progress Note - Text Progress Note Date: 06/06/23 The patient is seen and examined. She is not having any new neurologic change. She underwent her CT aspiration at the disc space yesterday. She tolerated adequately. She does not have evidence of abscess or neurologic compromise. She'll plan continued treatment for her discitis with prolonged antibiotics per infectious disease. We can follow her up from our surgery standpoint outpatient basis.
[2023-06-06 11:57] LABS: Basophils # (A) 0.04 X 10*3/uL (0.00-0.10); Basophils % (A) 0.5 %; Eosinophils % (A) 2.5 %; HCT 32.4 % (37.2-46.3); HGB 10.3 g/dL (12.0-15.0); Lymphocytes # (A) 2.03 X 10*3/uL (0.90-5.00); Lymphocytes % (A) 25.9 %; MCH 25.9 pg (27.0-32.0); MCHC 31.8 g/dL (32.0-37.0); MCV 81.6 FL (80.0-97.0); Mean Platelet Volume 9.9 FL (9.5-12.2); Monocytes # (A) 0.71 X 10*3/uL (0.20-1.00); NRBC Per 100 WBC 0 X 10*3/uL (0.00-0.01); Neutrophils # (A) 4.82 X 10*3/uL (1.80-7.70); Neutrophils % (A) 61.5 %; Platelet Count 291 X 10*3/uL (140-440); RBC 3.97 X 10*6/uL (4.10-5.20); RDW 14.7 % (11.5-14.5); WBC 7.85 X 10*3/uL (4.50-10.00)
--- NOTE | 2023-06-06 13:23 | P.PN ---
Subjective Progress Note Date: 06/05/23 Principal diagnosis: Abnormal computed tomography scan concerning for osteomyelitis/discitis Patient is a 47-year-old female with a past medical history significant for IV drug use last use was abot a week go patient also have a history of cervical cancer hypertension and hepatitis. Previous history of MRSA infection patient is presenting to [facility] ER for evaluation of back pain he did have abnormal CT of the lumbosacral spine in the outpatient setting. On today's evaluation that is 06/05/2023, the patient remains to be afebrile, the patient is breathing comfortably on room air and denies any shortness of breath, the patient denies any chest pain or cough , patient denies abdominal pain and no nausea/vomiting or diarrhea , the patient pain to lower back area is controlled with pain medication Patient had a white count 11.46 creatinine 0.53, blood culture negative so far Objective - Vital Signs Vital signs: Vital Signs Temp 98.4 F 06/05/23 07:14 Pulse 74 06/05/23 07:14 Resp 18 06/05/23 07:14 BP 143/83 06/05/23 07:14 Pulse Ox 97 06/05/23 07:14 FiO2 Intake & Output 06/04/23 06/05/23 06/05/23 18:59 06:59 18:59 Other: Voiding Method Toilet # Voids 3 5 - Exam GENERAL DESCRIPTION: A middle-age female up in the room in no distress RESPIRATORY SYSTEM: Unlabored breathing , clear to auscultation anteriorly HEART: S1 S2 regular rate and rhythm , ABDOMEN: Soft , no tenderness EXTREMITIES: No edema feet - Labs CBC & Chem 7: 06/06/23 07:31 06/06/23 04:55 Labs: Microbiology - Last 24 Hours (Table) 06/01/23 08:51 Blood Culture - Preliminary Blood 06/01/23 08:51 Blood Culture - Preliminary Blood Assessment and Plan (1) Discitis Current Visit: Yes Status: Acute Code(s): M46.40 - DISCITIS, UNSPECIFIED, SITE UNSPECIFIED SNOMED Code(s): 4424545 Plan: 1patient present to hospital with abnormal CT of the thoracolumbar spine in this patient who did have a history of IV drug use did have history of fall with the CT suspicious for compression fracture versus discitis patient do have risk factor of IV drug use that would put her at risk of discitis and osteomyelitis to the cervical spine area however the patient not running any fever did have a normal white count that would go against infectious etiology but did have elevated sed rate. 2blood culture has been obtained and results are currently pending 3 MRI of the thoracolumbar spine is suspicious for osteomyelitis/discitis T9- T10 with some phlegmon but no abscess case discussed with the spine surgeon recommending IR aspiration of the area 4patient to continue with the vancomycin and cefepime while waiting for IR aspiration of the area and culture Dictation was produced using [employer] dictation software. please excuse any grammatical, word or spelling errors. Time with Patient: Less than 30
--- NOTE | 2023-06-06 13:24 | P.PN ---
Subjective Progress Note Date: 06/06/23 Principal diagnosis: Abnormal computed tomography scan concerning for osteomyelitis/discitis Patient is a 47-year-old female with a past medical history significant for IV drug use last use was abot a week go patient also have a history of cervical cancer hypertension and hepatitis. Previous history of MRSA infection patient is presenting to [facility] ER for evaluation of back pain he did have abnormal CT of the lumbosacral spine in the outpatient setting. On today's evaluation that is 06/06/2023, the patient denies any fever or any chills, the patient is breathing comfortably on room air and no need for supplemental oxygen, the patient denies any chest pain, cough or sputum production, patient denies abdominal pain and no nausea/vomiting and no diarrhea has been reported , the patient continued to pain to lower back area with some radiation to the left gluteal area Patient had a white count is normal at 7.85 creatinine is 0.49, blood culture negative so far Objective - Vital Signs Vital signs: Vital Signs Temp 98.3 F 06/06/23 06:45 Pulse 85 06/06/23 06:45 Resp 18 06/06/23 06:45 BP 111/75 06/06/23 06:45 Pulse Ox 94 L 06/06/23 06:45 FiO2 Intake & Output 06/05/23 06/06/23 06/06/23 18:59 06:59 18:59 Other: # Voids 3 2 - Exam GENERAL DESCRIPTION: A middle-age female up in the room in no distress RESPIRATORY SYSTEM: Unlabored breathing , clear to auscultation anteriorly HEART: S1 S2 regular rate and rhythm , ABDOMEN: Soft , no tenderness EXTREMITIES: No edema feet - Labs CBC & Chem 7: 06/06/23 07:31 06/06/23 04:55 Labs: Abnormal Lab Results - Last 24 Hours (Table) 06/06/23 06/06/23 Range/Units 04:55 07:31 RBC 3.97 L (4.10-5.20) X 10*6/uL Hgb 10.3 L (12.0-15.0) g/dL Hct 32.4 L (37.2-46.3) % MCH 25.9 L (27.0-32.0) pg MCHC 31.8 L (32.0-37.0) g/dL RDW 14.7 H (11.5-14.5) % Creatinine 0.49 L (0.52-1.04) mg/dL Glucose 125 H (74-99) mg/dL Assessment and Plan (1) Discitis Current Visit: Yes Status: Acute Code(s): M46.40 - DISCITIS, UNSPECIFIED, SITE UNSPECIFIED SNOMED Code(s): 7399643 Plan: 1patient present to hospital with abnormal CT of the thoracolumbar spine in this patient who did have a history of IV drug use did have history of fall with the CT suspicious for compression fracture versus discitis patient do have risk factor of IV drug use that would put her at risk of discitis and osteomyelitis to the cervical spine area however the patient not running any fever did have a normal white count that would go against infectious etiology but did have elevated sed rate. 2blood culture has been obtained and results are currently pending 3 MRI of the thoracolumbar spine is suspicious for osteomyelitis/discitis T9- T10 with some phlegmon but no abscess case discussed with the spine surgeon recommending IR aspiration of the area which was completed on 06/05/2023 4patient to continue with the vancomycin and cefepime while waiting for cultures to finalize to determine discharge antibiotics will likely need placement Dictation was produced using [employer] dictation software. please excuse any grammatical, word or spelling errors. Time with Patient: Less than 30
--- NOTE | 2023-06-06 19:44 | P.PN ---
Subjective Progress Note Date: 06/06/23 ; patient is 47-year-old lady with past medical significant for depression, chronic methadone use, IV drug use presented to the ER for back pain. Patient was seen in the ER 2 days ago for similar complaints at which time CT imaging remarkable for compression fracture at T9-10 with surrounding soft tissue inflammation, Radiology recommends rule out possible discitis for which inflammatory markers were ordered. Patient stated that she has been feeling lethargic and weak for the last few days. Patient was also complaining of chills but didn't check her fevers. Patient was also complaining of nausea but no vomiting. No current chest pain or shortness of breath. Denies any abdominal pain. Denies any increased frequency of urination or burning micturition. Patient inflammatory markers came back elevated with ESR of 100, patient was called to come back ER Initial lab work done in the ER showed WBC 8, hemoglobin 11.7, platelet count 305, sodium 139, potassium 3.7, BUN 19, creatinine 0.64, ESR 100 patient was admitted to medicine service 06/02. Patient seen and examined. Still having back pain. Denies any urinary or bowel incontinence. Denies any numbness of her buttocks. Vital signs stable 06/03. Patient seen and examined. Still having back pain. Currently scheduled for MRI today. 06/04/2023 Patient is seen in follow-up today continues to have pain awaiting documentation from [facility] to continue with methadone. Patient was scheduled for MRI yesterday although unable to handle and will give IV Ativan today and currently plan for this afternoon. Patient being followed by infectious disease along with orthopedics awaiting MRI for further treatment plans moving forward. Patient is afebrile with no reported chest pain or shortness of breath. Patient is tolerating diet and continued on cefepime and vancomycin with infectious disease following closely. Will await MRI report. 06/05/2023 Patient is seen in follow-up today with orthopedics and infectious disease following. Patient underwent MRI which was suggestive of osteomyelitis and discitis with no plans of surgical intervention per orthopedics and will be requiring antibiotic therapy. Infectious disease following recommending IR consultation for needle aspiration of the area to determine appropriate discharge antibiotics. There is concern as patient had history of IV drug abuse and relapse the patient will be unable to safely receive a PICC line for outpatient antibiotic therapy. Case management/social work will be following working on discharge planning and arranging for IV antibiotic therapy outpatient possibly at the clinic. Patient does go to outpatient [facility] Saturday through Saturday and is continued on methadone. Patient reports a fall yesterday, unwitnessed and having back pain which she has been having since admission. 06/06/2023 Patient is seen and evaluated in follow-up today being followed by infectious disease along with orthopedics. No surgical interventions per orthopedics and patient is status post IR guided needle aspiration awaiting finalized cultures. Patient is maintained on cefepime along with vancomycin with infectious disease following closely. Patient continues on pain management along with her scheduled methadone that she receives at [facility]. Patient follows with [facility] in the outpatient setting 6 days per week. Patient will likely need long-term IV antibiotics although patient has a past history of IV drug abuse with relapse and will be unable to go home with a PICC line unless sent to an ECF for continued IV antibiotic therapy. Case management following and awaiting further instructions from infectious disease on discharge planning. Patient is afebrile no reported chest pain or shortness of breath. Patient denies nausea or vomiting and has been tolerating diet. REVIEW OF SYSTEMS: CONSTITUTIONAL: No fever, no malaise,. CARDIOVASCULAR: No chest pain, no palpitations, no syncope. PULMONARY: No shortness of breath, no cough, GASTROINTESTINAL: No diarrhea, no nausea, no vomiting, no abdominal pain. NEUROLOGICAL: No headaches, no weakness, reports continued mid back pain PHYSICAL EXAMINATION: GENERAL: The patient is alert and oriented x3, not in any acute distress. Well developed, well nourished. Obese HEENT: Pupils are round and equally reacting to light. EOMI. No scleral icterus. No conjunctival pallor. Normocephalic, atraumatic. No pharyngeal erythema. No thyromegaly. CARDIOVASCULAR: S1 and S2 present. No murmurs, rubs, or gallops. PULMONARY: Chest is clear to auscultation, no wheezing or crackles. ABDOMEN: Soft, nontender, nondistended, normoactive bowel sounds. No palpable o rganomegaly. MUSCULOSKELETAL: No joint swelling or deformity. EXTREMITIES: No cyanosis, clubbing, or pedal edema. NEUROLOGICAL: Gross neurological examination did not reveal any focal deficits. SKIN: No rashes. Assessment: Acute intractable back pain Compression fracture of T9-T10 discitis of T9-T10 with concerns of osteomyelitis, per MRI Obesity with a BMI of 30.0 History of depression with PTSD Continued ongoing nicotine dependence THC use Past IV drug abuser, relapsed DVT prophylaxis GI prophylaxis Full code Plan: Patient underwent MRI suggestive of discitis with osteomyelitis with orthopedics and infectious disease following. Interventional radiology performed needle aspiration of the area of concern awaiting finalized cultures. Blood cultures thus far remain negative. Continue IV antibiotics in the form of cefepime and vancomycin per ID recommendations TLSO brace was ordered and patient has been approved to wear while out of bed per orthopedics. Patient has not been wearing the brace and up and walking Patient takes methadone and has been confirmed from [facility] and reordered Await needle aspiration results to determine discharge antibiotics and treatment plan moving forward. Case management to follow as patient has history of IV drug abuse with relapse which causes extreme concern for receiving a PICC line and outpatient IV antibiotics. Patient may likely have to come to the clinic for antibiotic infusions and/or ECF placement for continued antibiotic therapy The impression and plan of care has been dictated by Allison Saul, Nurse Pra ctitioner as directed. Dr. Debbie MD I have performed a history and examination and MDM of this patient, discussed the same with the dictator, and agree with the dictator's assessment and plan as written ,documented as a scribe. Based on total visit time, I have performed more than 50% of the visit. Objective - Vital Signs Vital signs: Vital Signs Temp 98.3 F 06/06/23 06:45 Pulse 83 06/06/23 14:55 Resp 18 06/06/23 14:55 BP 127/85 06/06/23 14:55 Pulse Ox 94 L 06/06/23 14:55 FiO2 Intake & Output 06/06/23 06/06/23 06/07/23 06:59 18:59 06:59 Other: # Voids 2 - Labs CBC & Chem 7: 06/06/23 07:31 06/06/23 04:55 Labs: Abnormal Lab Results - Last 24 Hours (Table) 06/06/23 06/06/23 Range/Units 04:55 07:31 RBC 3.97 L (4.10-5.20) X 10*6/uL Hgb 10.3 L (12.0-15.0) g/dL Hct 32.4 L (37.2-46.3) % MCH 25.9 L (27.0-32.0) pg MCHC 31.8 L (32.0-37.0) g/dL RDW 14.7 H (11.5-14.5) % Creatinine 0.49 L (0.52-1.04) mg/dL Glucose 125 H (74-99) mg/dL Microbiology - Last 24 Hours (Table) 06/01/23 08:51 Blood Culture - Final Blood 06/01/23 08:51 Blood Culture - Final Blood
[2023-06-06] MEDS: ACETAMINOPHEN TAB 325 MG TAB PO PRN (20:08)
[2023-06-07] MEDS: CEFEPIME 2 GM in SODIUM CHLORIDE 0.9% 100 ML IVPB SCH ×3 (02:32→17:54)
[2023-06-07] MEDS: HYDROmorphone 0.5 MG/0.5 ML SYRINGE IVP PRN ×7 (02:33→21:04)
[2023-06-07] MEDS: VANCOMYCIN 1,500 MG in SODIUM CHLORIDE 0.9% 500 ML 500 ML IVPB SCH ×2 (05:36→17:54)
[2023-06-07] MEDS: hydrOXYzine pamoate 25 MG CAP PO SCH ×3 (08:59→21:07)
[2023-06-07] MEDS: SERTRALINE 50 MG TAB PO SCH (08:59)
[2023-06-07] MEDS: METHADONE 10 MG TAB PO SCH (09:01)
[2023-06-07] MEDS: QUEtiapine 100 MG TAB PO SCH ×2 (09:16→21:08)
[2023-06-07 11:41] VITALS: BMI 29.9
--- NOTE | 2023-06-07 12:22 | P.PN ---
Subjective Progress Note Date: 06/07/23 Principal diagnosis: Abnormal computed tomography scan concerning for osteomyelitis/discitis Patient is a 47-year-old female with a past medical history significant for IV drug use last use was abot a week go patient also have a history of cervical cancer hypertension and hepatitis. Previous history of MRSA infection patient is presenting to [facility] ER for evaluation of back pain he did have abnormal CT of the lumbosacral spine in the outpatient setting. On today's evaluation that is 06/07/2023, the patient remains to be afebrile, the patient is breathing comfortably on room air , the patient denies any chest pain or any cough , patient denies nausea/vomiting diarrhea and no abdominal pain, the patient still complaining of pain to lower back area but no worsening Patient had a white count is normal at 7.85 creatinine is 0.49 as of yesterday no labs drawn today, blood culture negative, CT-guided aspirate cultures are pending Objective - Vital Signs Vital signs: Vital Signs Temp 98.1 F 06/07/23 08:00 Pulse 82 06/07/23 08:00 Resp 18 06/07/23 02:00 BP 131/83 06/07/23 08:00 Pulse Ox 93 L 06/07/23 08:00 FiO2 Intake & Output 06/06/23 06/07/23 06/07/23 18:59 06:59 18:59 Other: # Voids 2 - Exam GENERAL DESCRIPTION: A middle-age female up in the room in no distress RESPIRATORY SYSTEM: Unlabored breathing , clear to auscultation anteriorly HEART: S1 S2 regular rate and rhythm , ABDOMEN: Soft , no tenderness EXTREMITIES: No edema feet - Labs CBC & Chem 7: 06/06/23 07:31 06/06/23 04:55 Labs: Abnormal Lab Results - Last 24 Hours (Table) 06/06/23 Range/Units 07:31 RBC 3.97 L (4.10-5.20) X 10*6/uL Hgb 10.3 L (12.0-15.0) g/dL Hct 32.4 L (37.2-46.3) % MCH 25.9 L (27.0-32.0) pg MCHC 31.8 L (32.0-37.0) g/dL RDW 14.7 H (11.5-14.5) % Microbiology - Last 24 Hours (Table) 06/05/23 14:31 Gram Stain - Preliminary Other - Other Tissue Culture - Preliminary 06/05/23 14:30 Gram Stain - Preliminary Other - Other 06/01/23 08:51 Blood Culture - Final Blood 06/01/23 08:51 Blood Culture - Final Blood Assessment and Plan (1) Discitis Current Visit: Yes Status: Acute Code(s): M46.40 - DISCITIS, UNSPECIFIED, SITE UNSPECIFIED SNOMED Code(s): 3721967 Plan: 1patient present to hospital with abnormal CT of the thoracolumbar spine in this patient who did have a history of IV drug use did have history of fall with the CT suspicious for compression fracture versus discitis patient do have risk factor of IV drug use that would put her at risk of discitis and osteomyelitis to the thoracolumbar spine area , patient did have an MRI of the thoracolumbar spine is suspicious for osteomyelitis/discitis T9-T10 with some phlegmon but no abscess case discussed with the spine surgeon recommending IR aspiration of the area which was completed on 06/05/2023 2blood culture has been obtained and a CT-guided aspirate of the thoracic spine are currently pending 3patient to continue with the vancomycin and cefepime while waiting for cultures to finalize to determine discharge antibiotics , patient is refusing this point and wants to go home with the PICC line patient did have a history of IV drug abuse it was explained to the patient in simple language patient cannot inject anything else besides antibiotics as injection of any other drugs can need to image her patient mentioned she is aware of it and has no plan to do anything like that the patient father with whom the patient lives confirm that the patient would not do something like that on this discussion happened in the presence of the rifle case repairer and the patient nurse , once cleared by risk management she will get a PICC line and we will arrange for outpatient IV antibiotic therapy Dictation was produced using [employer] dictation software. please excuse any grammatical, word or spelling errors. Time with Patient: Greater than 30
--- NOTE | 2023-06-07 17:50 | P.PN ---
Subjective Progress Note Date: 06/07/23 47-year-old lady with past medical significant for depression, chronic methadone use, IV drug use presented to the ER for back pain. Patient was seen in the ER 2 days ago for similar complaints at which time CT imaging remarkable for compression fracture at T9-10 with surrounding soft tissue inflammation, Radiology recommends rule out possible discitis for which inflammatory markers were ordered. Patient stated that she has been feeling lethargic and weak for the last few days. Patient was also complaining of chills but didn't check her fevers. Patient was also complaining of nausea but no vomiting. No current chest pain or shortness of breath. Denies any abdominal pain. Denies any increased frequency of urination or burning micturition. Patient inflammatory markers came back elevated with ESR of 100, patient was called to come back ER Initial lab work done in the ER showed WBC 8, hemoglobin 11.7, platelet count 305, sodium 139, potassium 3.7, BUN 19, creatinine 0.64, ESR 100 patient was admitted to medicine service Objective - Vital Signs Vital signs: Vital Signs Temp 98.1 F 06/07/23 08:00 Pulse 82 06/07/23 10:30 Resp 18 06/07/23 02:00 BP 131/83 06/07/23 08:00 Pulse Ox 93 L 06/07/23 08:00 FiO2 Intake & Output 06/06/23 06/07/23 06/07/23 18:59 06:59 18:59 Weight 92.079 kg Other: Voiding Method Toilet # Voids 2 - Exam GENERAL: The patient is alert and oriented x3, not in any acute distress. Well developed, well nourished. Obese HEENT: Pupils are round and equally reacting to light. EOMI. No scleral icterus. No conjunctival pallor. Normocephalic, atraumatic. No pharyngeal erythema. No thyromegaly. CARDIOVASCULAR: S1 and S2 present. No murmurs, rubs, or gallops. PULMONARY: Chest is clear to auscultation, no wheezing or crackles. ABDOMEN: Soft, nontender, nondistended, normoactive bowel sounds. No palpable organomegaly. MUSCULOSKELETAL: No joint swelling or deformity. EXTREMITIES: No cyanosis, clubbing, or pedal edema. NEUROLOGICAL: Gross neurological examination did not reveal any focal deficits. SKIN: No rashes. - Labs CBC & Chem 7: 06/06/23 07:31 06/06/23 04:55 Labs: Microbiology - Last 24 Hours (Table) 06/05/23 14:30 Gram Stain - Preliminary Other - Other Wound Culture - Preliminary 06/05/23 14:31 Gram Stain - Preliminary Other - Other Tissue Culture - Preliminary 06/01/23 08:51 Blood Culture - Final Blood 06/01/23 08:51 Blood Culture - Final Blood Assessment and Plan Assessment: Acute intractable back pain Compression fracture of T9-T10 discitis of T9-T10 with concerns of osteomyelitis, per MRI Obesity with a BMI of 30.0 History of depression with PTSD Continued ongoing nicotine dependence THC use Past IV drug abuser, relapsed DVT prophylaxis GI prophylaxis Full code Plan: Patient underwent MRI suggestive of discitis with osteomyelitis with orthopedics and infectious disease following. Interventional radiology performed needle aspiration of the area of concern awaiting finalized cultures. Blood cultures thus far remain negative. Continue IV antibiotics in the form of cefepime and vancomycin per ID recommendations TLSO brace was ordered and patient has been approved to wear while out of bed per orthopedics. Patient has not been wearing the brace and up and walking Patient takes methadone and has been confirmed from [facility] and reordered Await needle aspiration results to determine discharge antibiotics and treatment plan moving forward. Case management to follow as patient has history of IV drug abuse with relapse which causes extreme concern for receiving a PICC line and outpatient IV antibiotics. Patient may likely have to come to the clinic for antibiotic infusions and/or ECF placement for continued antibiotic therapy
[2023-06-07] MEDS: HYDROcodone/APAP 5-325MG 1 EACH TAB PO PRN (18:16)
[2023-06-08] MEDS: HYDROmorphone 0.5 MG/0.5 ML SYRINGE IVP PRN ×9 (00:19→23:07)
[2023-06-08] MEDS: CEFEPIME 2 GM in SODIUM CHLORIDE 0.9% 100 ML IVPB SCH ×2 (01:27→10:37)
[2023-06-08] MEDS: VANCOMYCIN 1,500 MG in SODIUM CHLORIDE 0.9% 500 ML 500 ML IVPB SCH ×2 (05:53→18:31)
[2023-06-08] MEDS: HYDROcodone/APAP 5-325MG 1 EACH TAB PO PRN ×2 (07:51→13:26)
[2023-06-08] MEDS: METHADONE 10 MG TAB PO SCH (08:00)
[2023-06-08] MEDS: hydrOXYzine pamoate 25 MG CAP PO SCH ×3 (08:01→20:02)
[2023-06-08] MEDS: SERTRALINE 50 MG TAB PO SCH (08:01)
[2023-06-08] MEDS: QUEtiapine 100 MG TAB PO SCH ×2 (08:02→20:03)
--- NOTE | 2023-06-08 11:47 | P.PN ---
Subjective Progress Note Date: 06/08/23 Principal diagnosis: Abnormal computed tomography scan concerning for osteomyelitis/discitis Patient is a 47-year-old female with a past medical history significant for IV drug use last use was abot a week go patient also have a history of cervical cancer hypertension and hepatitis. Previous history of MRSA infection patient is presenting to [facility] ER for evaluation of back pain he did have abnormal CT of the lumbosacral spine in the outpatient setting. On today's evaluation that is 06/08/2023, the patient denies any fever or any chills, the patient is breathing comfortably on room air without any need for supplemental oxygen, the patient denies any chest pain or any cough , patient denies abdominal pain, no nausea/vomiting diarrhea , the patient has been complaining of pain to lower back area and blaming the hospital bed for it, per the nursing staff patient is refusing cefepime as she cannot keep her hands still for 4 hours Patient had a white count is normal at 7.85 creatinine is 0.49 as of 06/16/2023, no labs drawn today, blood culture negative, CT-guided aspirate cultures are pending Objective - Vital Signs Vital signs: Vital Signs Temp 98.2 F 06/08/23 07:50 Pulse 99 06/08/23 07:50 Resp 19 06/08/23 07:50 BP 152/101 06/08/23 07:50 Pulse Ox 93 L 06/08/23 07:50 FiO2 Intake & Output 06/07/23 06/08/23 06/08/23 18:59 06:59 18:59 Weight 92.079 kg Other: Voiding Method Toilet Toilet # Voids 3 3 1 # Bowel Movements 1 - Exam GENERAL DESCRIPTION: A middle-age female up in the room in no distress RESPIRATORY SYSTEM: Unlabored breathing , clear to auscultation anteriorly HEART: S1 S2 regular rate and rhythm , ABDOMEN: Soft , no tenderness EXTREMITIES: No edema feet - Labs CBC & Chem 7: 06/06/23 07:31 06/06/23 04:55 Labs: Microbiology - Last 24 Hours (Table) 06/05/23 14:30 Gram Stain - Final Other - Other Wound Culture - Final 06/05/23 14:31 Gram Stain - Preliminary Other - Other Tissue Culture - Preliminary Assessment and Plan (1) Discitis Current Visit: Yes Status: Acute Code(s): M46.40 - DISCITIS, UNSPECIFIED, SITE UNSPECIFIED SNOMED Code(s): 7008067 Plan: 1patient present to hospital with abnormal CT of the thoracolumbar spine in this patient who did have a history of IV drug use did have history of fall with the CT suspicious for compression fracture versus discitis patient do have risk factor of IV drug use that would put her at risk of discitis and osteomyelitis to the thoracolumbar spine area , patient did have an MRI of the thoracolumbar spine is suspicious for osteomyelitis/discitis T9-T10 with some phlegmon but no abscess case discussed with the spine surgeon recommending IR aspiration of the area which was completed on 06/05/2023 2blood culture has been obtained and a CT-guided aspirate of the thoracic spine are currently pending 3patient to continue with the vancomycin we will switch cefepime to Rocephin as no resistant gram-negative has grown in the culture so far and see clinical response Dictation was produced using [employer] dictation software. please excuse any grammatical, word or spelling errors. Time with Patient: Less than 30
--- NOTE | 2023-06-08 17:34 | P.PN ---
Subjective Progress Note Date: 06/08/23 47-year-old lady with past medical significant for depression, chronic methadone use, IV drug use presented to the ER for back pain. Patient was seen in the ER 2 days ago for similar complaints at which time CT imaging remarkable for compression fracture at T9-10 with surrounding soft tissue inflammation, Radiology recommends rule out possible discitis for which inflammatory markers were ordered. Patient stated that she has been feeling lethargic and weak for the last few days. Patient was also complaining of chills but didn't check her fevers. Patient was also complaining of nausea but no vomiting. No current chest pain or shortness of breath. Denies any abdominal pain. Denies any increased frequency of urination or burning micturition. Patient inflammatory markers came back elevated with ESR of 100, patient was called to come back ER Initial lab work done in the ER showed WBC 8, hemoglobin 11.7, platelet count 305, sodium 139, potassium 3.7, BUN 19, creatinine 0.64, ESR 100 patient was admitted to medicine service 06/08/2023, the patient is seen and evaluated in room at bedside; denies any fever or any chills, the patient is breathing comfortably on room air without any need for supplemental oxygen, the patient denies any chest pain or any cough , patient denies abdominal pain, no nausea/vomiting diarrhea , the patient has been complaining of pain to lower back area and blaming the hospital bed for it, per the nursing staff patient is refusing cefepime as she cannot keep her hands still for 4 hours Patient had a white count is normal at 7.85 creatinine is 0.49 as of 06/16/2023, no labs drawn today, blood culture negative, CT-guided aspirate cultures are pending Objective - Vital Signs Vital signs: Vital Signs Temp 98.2 F 06/08/23 07:50 Pulse 99 06/08/23 07:50 Resp 19 06/08/23 07:50 BP 152/101 06/08/23 07:50 Pulse Ox 93 L 06/08/23 07:50 FiO2 Intake & Output 06/07/23 06/08/23 06/08/23 18:59 06:59 18:59 Weight 92.079 kg Other: Voiding Method Toilet Toilet # Voids 3 3 1 # Bowel Movements 1 - Exam GENERAL: The patient is alert and oriented x3, not in any acute distress. Well developed, well nourished. Obese HEENT: Pupils are round and equally reacting to light. EOMI. No scleral icterus. No conjunctival pallor. Normocephalic, atraumatic. No pharyngeal erythema. No thyromegaly. CARDIOVASCULAR: S1 and S2 present. No murmurs, rubs, or gallops. PULMONARY: Chest is clear to auscultation, no wheezing or crackles. ABDOMEN: Soft, nontender, nondistended, normoactive bowel sounds. No palpable o rganomegaly. MUSCULOSKELETAL: No joint swelling or deformity. EXTREMITIES: No cyanosis, clubbing, or pedal edema. NEUROLOGICAL: Gross neurological examination did not reveal any focal deficits. SKIN: No rashes. - Labs CBC & Chem 7: 06/06/23 07:31 06/06/23 04:55 Labs: Microbiology - Last 24 Hours (Table) 06/05/23 14:30 Gram Stain - Final Other - Other Wound Culture - Final 06/05/23 14:31 Gram Stain - Preliminary Other - Other Tissue Culture - Preliminary Assessment and Plan Assessment: Acute intractable back pain Compression fracture of T9-T10 discitis of T9-T10 with concerns of osteomyelitis, per MRI Obesity with a BMI of 30.0 History of depression with PTSD Continued ongoing nicotine dependence THC use Past IV drug abuser, relapsed DVT prophylaxis GI prophylaxis Full code Plan: Patient underwent MRI suggestive of discitis with osteomyelitis with orthopedics and infectious disease following. Interventional radiology performed needle aspiration of the area of concern awaiting finalized cultures. Blood cultures thus far remain negative. Continue IV antibiotics in the form of cefepime and vancomycin per ID recommendations TLSO brace was ordered and patient has been approved to wear while out of bed per orthopedics. Patient has not been wearing the brace and up and walking Patient takes methadone and has been confirmed from [place] and reordered Await needle aspiration results to determine discharge antibiotics and treatment plan moving forward. Case management to follow as patient has history of IV drug abuse with relapse which causes extreme concern for receiving a PICC line and outpatient IV antibiotics. Patient may likely have to come to the clinic for antibiotic infusions and/or ECF placement for continued antibiotic therapy
[2023-06-08] MEDS: ACETAMINOPHEN TAB 325 MG TAB PO PRN (20:09)
[2023-06-09] MEDS: HYDROmorphone 0.5 MG/0.5 ML SYRINGE IVP PRN ×8 (02:20→23:39)
[2023-06-09] MEDS ORDERED: VANCOMYCIN TROUGH DUE 1 EACH MISC MISCELLANE ONE (05:00)
[2023-06-09] MEDS: ACETAMINOPHEN TAB 325 MG TAB PO PRN ×2 (05:04→15:22)
[2023-06-09] MEDS: VANCOMYCIN 1,500 MG in SODIUM CHLORIDE 0.9% 500 ML 500 ML IVPB SCH (05:41)
[2023-06-09 07:32] LABS: Basophils % (A) 0 %; Eosinophils # (A) 0.2 k/uL (0-0.7); Eosinophils % (A) 2 %; HCT 37.7 % (34.0-46.0); HGB 12.1 gm/dL (11.4-16.0); Lymphocytes % (A) 27 %; MCH 26.4 pg (25.0-35.0); MCHC 32.2 g/dL (31.0-37.0); Mean Platelet Volume 7.8; Monocytes # (A) 0.4 k/uL (0-1.0); Monocytes % (A) 6 %; Neutrophils # (A) 4.7 k/uL (1.3-7.7); Neutrophils % (A) 63 %; Platelet Count 291 k/uL (150-450); RDW 14.7 % (11.5-15.5); WBC 7.5 k/uL (3.8-10.6)
[2023-06-09 07:53] LABS: ALT 47 U/L (4-34); AST 35 U/L (14-36); African American GFR (CKD) >90 (>60 ml/min/1.73 sqM); Albumin 3.8 g/dL (3.5-5.0); Albumin/Globulin Ratio 0.9; Alkaline Phosphatase 165 U/L (38-126); Anion Gap 14 mmol/L; Blood Urea Nitrogen 13 mg/dL (7-17); C Reactive Protein 4.6 mg/dL (<1.0); Calcium 9.4 mg/dL (8.4-10.2); Carbon Dioxide 26 mmol/L (22-30); Chloride 98 mmol/L (98-107); Globulin 4.3 g/dL; Glucose 116 mg/dL (74-99); Non-African American GFR(CKD) >90 (>60 ml/min/1.73 sqM); Potassium 4.1 mmol/L (3.5-5.1); Sodium 138 mmol/L (137-145); Total Bilirubin 0.5 mg/dL (0.2-1.3); Total Protein 8.1 g/dL (6.3-8.2)
[2023-06-09] MEDS: HYDROcodone/APAP 5-325MG 1 EACH TAB PO PRN (08:24)
[2023-06-09] MEDS: hydrOXYzine pamoate 25 MG CAP PO SCH ×3 (08:24→21:07)
[2023-06-09] MEDS: SERTRALINE 50 MG TAB PO SCH (08:25)
[2023-06-09] MEDS: METHADONE 10 MG TAB PO SCH (08:25)
[2023-06-09] MEDS: QUEtiapine 100 MG TAB PO SCH ×2 (08:26→21:10)
[2023-06-09] MEDS: VANCOMYCIN 1,250 MG in SODIUM CHLORIDE 0.9% 250 ML IVPB SCH ×2 (13:20→21:11)
--- NOTE | 2023-06-09 15:48 | P.PN ---
Subjective Progress Note Date: 06/09/23 Principal diagnosis: Abnormal computed tomography scan concerning for osteomyelitis/discitis Patient is a 47-year-old female with a past medical history significant for IV drug use last use was abot a week go patient also have a history of cervical cancer hypertension and hepatitis. Previous history of MRSA infection patient is presenting to [facility] ER for evaluation of back pain he did have abnormal CT of the lumbosacral spine in the outpatient setting. On today's evaluation that is 06/09/2023, the patient remains to be afebrile , the patient is breathing comfortably on room air and denies any shortness of breath, the patient denies any chest pain cough or sputum production, patient denies nausea/vomiting/ diarrhea and no abdominal pain , denies worsening pain to lower back area Patient had a white count is normal at 7.5 creatinine is 0.55, blood culture negative, CT-guided aspirate cultures are negative so far Objective - Vital Signs Vital signs: Vital Signs Temp 98.1 F 06/09/23 13:03 Pulse 73 06/09/23 13:03 Resp 18 06/09/23 13:03 BP 125/76 06/09/23 13:03 Pulse Ox 92 L 06/09/23 13:03 FiO2 Intake & Output 06/08/23 06/09/23 06/09/23 18:59 06:59 18:59 Other: Voiding Method Toilet # Voids 1 4 1 # Bowel Movements 1 - Exam GENERAL DESCRIPTION: A middle-age female up in the room in no distress RESPIRATORY SYSTEM: Unlabored breathing , clear to auscultation anteriorly HEART: S1 S2 regular rate and rhythm , ABDOMEN: Soft , no tenderness EXTREMITIES: No edema feet - Labs CBC & Chem 7: 06/09/23 05:51 06/09/23 05:51 Labs: Abnormal Lab Results - Last 24 Hours (Table) 06/09/23 Range/Units 05:51 Glucose 116 H (74-99) mg/dL ALT 47 H (4-34) U/L Alkaline Phosphatase 165 H (38-126) U/L C-Reactive Protein 4.6 H (<1.0) mg/dL Microbiology - Last 24 Hours (Table) 06/05/23 14:31 Gram Stain - Preliminary Other - Other Tissue Culture - Preliminary 06/05/23 14:30 Anaerobic Culture - Preliminary Other - Other 06/05/23 14:31 Anaerobic Culture - Preliminary Other - Other Assessment and Plan (1) Discitis Current Visit: Yes Status: Acute Code(s): M46.40 - DISCITIS, UNSPECIFIED, SITE UNSPECIFIED SNOMED Code(s): 0548202 Plan: 1patient present to hospital with abnormal CT of the thoracolumbar spine in this patient who did have a history of IV drug use did have history of fall with the CT suspicious for compression fracture versus discitis patient do have risk factor of IV drug use that would put her at risk of discitis and osteomyelitis to the thoracolumbar spine area , patient did have an MRI of the thoracolumbar spine is suspicious for osteomyelitis/discitis T9-T10 with some phlegmon but no abscess case discussed with the spine surgeon recommending IR aspiration of the area which was completed on 06/05/2023 2blood culture has been obtained and a CT-guided aspirate of the thoracic spine are currently pending 3patient to continue with the vancomycin and Rocephin , Plan is for PICC line and 6week course of antibiotic and close outpatient follow-up Dictation was produced using [employer] dictation software. please excuse any grammatical, word or spelling errors. Time with Patient: Less than 30
--- NOTE | 2023-06-09 16:57 | P.PN ---
Subjective Progress Note Date: 06/09/23 47-year-old lady with past medical significant for depression, chronic methadone use, IV drug use presented to the ER for back pain. Patient was seen in the ER 2 days ago for similar complaints at which time CT imaging remarkable for compression fracture at T9-10 with surrounding soft tissue inflammation, Radiology recommends rule out possible discitis for which inflammatory markers were ordered. Patient stated that she has been feeling lethargic and weak for the last few days. Patient was also complaining of chills but didn't check her fevers. Patient was also complaining of nausea but no vomiting. No current chest pain or shortness of breath. Denies any abdominal pain. Denies any increased frequency of urination or burning micturition. Patient inflammatory markers came back elevated with ESR of 100, patient was called to come back ER Initial lab work done in the ER showed WBC 8, hemoglobin 11.7, platelet count 305, sodium 139, potassium 3.7, BUN 19, creatinine 0.64, ESR 100 patient was admitted to medicine service 06/08/2023, the patient is seen and evaluated in room at bedside; denies any fever or any chills, the patient is breathing comfortably on room air without any need for supplemental oxygen, the patient denies any chest pain or any cough , patient denies abdominal pain, no nausea/vomiting diarrhea , the patient has been complaining of pain to lower back area and blaming the hospital bed for it, per the nursing staff patient is refusing cefepime as she cannot keep her hands still for 4 hours Patient had a white count is normal at 7.85 creatinine is 0.49 as of 06/16/2023, no labs drawn today, blood culture negative, CT-guided aspirate cultures are pending 06/09/2023 the patient is seen and evaluated in room at bedside remains to be afebrile , the patient is breathing comfortably on room air and denies any shortness of breath, the patient denies any chest pain cough or sputum production, patient denies nausea/vomiting/ diarrhea and no abdominal pain , denies worsening pain to lower back area Patient had a white count is normal at 7.5 creatinine is 0.55, blood culture negative, CT-guided aspirate cultures are negative so far --patient present to hospital with abnormal CT of the thoracolumbar spine in this patient who did have a history of IV drug use did have history of fall with the CT suspicious for compression fracture versus discitis patient do have risk factor of IV drug use that would put her at risk of discitis and osteomyelitis to the thoracolumbar spine area , patient did have an MRI of the thoracolumbar spine is suspicious for osteomyelitis/discitis T9-T10 with some phlegmon but no abscess case discussed with the spine surgeon recommending IR aspiration of the area which was completed on 06/05/2023 --blood culture has been obtained and a CT-guided aspirate of the thoracic spine are currently pending --patient to continue with the vancomycin and Rocephin , Plan is for PICC line and 6week course of antibiotic and close outpatient follow-up Objective - Vital Signs Vital signs: Vital Signs Temp 98.5 F 06/09/23 07:00 Pulse 75 06/09/23 07:00 Resp 17 06/09/23 07:00 BP 124/81 06/09/23 07:00 Pulse Ox 96 06/09/23 07:00 FiO2 Intake & Output 06/08/23 06/09/23 06/09/23 18:59 06:59 18:59 Other: Voiding Method Toilet # Voids 1 4 1 # Bowel Movements 1 - Exam GENERAL: The patient is alert and oriented x3, not in any acute distress. Well developed, well nourished. Obese HEENT: Pupils are round and equally reacting to light. EOMI. No scleral icterus. No conjunctival pallor. Normocephalic, atraumatic. No pharyngeal erythema. No thyromegaly. CARDIOVASCULAR: S1 and S2 present. No murmurs, rubs, or gallops. PULMONARY: Chest is clear to auscultation, no wheezing or crackles. ABDOMEN: Soft, nontender, nondistended, normoactive bowel sounds. No palpable organomegaly. MUSCULOSKELETAL: No joint swelling or deformity. EXTREMITIES: No cyanosis, clubbing, or pedal edema. NEUROLOGICAL: Gross neurological examination did not reveal any focal deficits. SKIN: No rashes. - Labs CBC & Chem 7: 06/09/23 05:51 06/09/23 05:51 Labs: Abnormal Lab Results - Last 24 Hours (Table) 06/09/23 Range/Units 05:51 Glucose 116 H (74-99) mg/dL ALT 47 H (4-34) U/L Alkaline Phosphatase 165 H (38-126) U/L C-Reactive Protein 4.6 H (<1.0) mg/dL Microbiology - Last 24 Hours (Table) 06/05/23 14:31 Gram Stain - Preliminary Other - Other Tissue Culture - Preliminary 06/05/23 14:30 Anaerobic Culture - Preliminary Other - Other 06/05/23 14:31 Anaerobic Culture - Preliminary Other - Other 06/05/23 14:30 Gram Stain - Final Other - Other Wound Culture - Final Assessment and Plan Assessment: Acute intractable back pain Compression fracture of T9-T10 discitis of T9-T10 with concerns of osteomyelitis, per MRI Obesity with a BMI of 30.0 History of depression with PTSD Continued ongoing nicotine dependence THC use Past IV drug abuser, relapsed DVT prophylaxis GI prophylaxis Full code Plan: Patient underwent MRI suggestive of discitis with osteomyelitis with orthopedics and infectious disease following. Interventional radiology performed needle aspiration of the area of concern awaiting finalized cultures. Blood cultures thus far remain negative. Continue IV antibiotics in the form of cefepime and vancomycin per ID recommendations TLSO brace was ordered and patient has been approved to wear while out of bed per orthopedics. Patient has not been wearing the brace and up and walking Patient takes methadone and has been confirmed from [employer] and reordered Await needle aspiration results to determine discharge antibiotics and treatment plan moving forward. Case management to follow as patient has history of IV drug abuse with relapse which causes extreme concern for receiving a PICC line and outpatient IV antibiotics. Patient may likely have to come to the clinic for antibiotic infusions and/or ECF placement for continued antibiotic therapy
[2023-06-10] MEDS: HYDROmorphone 0.5 MG/0.5 ML SYRINGE IVP PRN ×6 (03:22→20:46)
[2023-06-10] MEDS: VANCOMYCIN 1,250 MG in SODIUM CHLORIDE 0.9% 250 ML IVPB SCH ×2 (06:02→13:30)
[2023-06-10] MEDS: METHADONE 10 MG TAB PO SCH (08:14)
[2023-06-10] MEDS: SERTRALINE 50 MG TAB PO SCH (08:14)
[2023-06-10] MEDS: hydrOXYzine pamoate 25 MG CAP PO SCH ×3 (08:14→20:44)
[2023-06-10] MEDS: QUEtiapine 100 MG TAB PO SCH ×2 (08:15→20:45)
--- NOTE | 2023-06-10 12:36 | P.PN ---
Subjective Progress Note Date: 06/10/23 Principal diagnosis: Abnormal computed tomography scan concerning for osteomyelitis/discitis Patient is a 47-year-old female with a past medical history significant for IV drug use last use was abot a week go patient also have a history of cervical cancer hypertension and hepatitis. Previous history of MRSA infection patient is presenting to [facility] ER for evaluation of back pain he did have abnormal CT of the lumbosacral spine in the outpatient setting. On today's evaluation that is 06/09/2023, the patient remains to be afebrile , the patient is breathing comfortably on room air and denies any shortness of breath, the patient denies any chest pain cough or sputum production, patient denies nausea/vomiting/ diarrhea and no abdominal pain , the patient denies worsening pain to lower back area Patient had a white count is normal at 7.5 creatinine is 0.55 as of 06/09/2023, blood culture negative, CT-guided aspirate cultures are negative so far Objective - Vital Signs Vital signs: Vital Signs Temp 97.8 F 06/10/23 07:54 Pulse 78 06/10/23 07:54 Resp 20 06/10/23 07:54 BP 121/80 06/10/23 07:54 Pulse Ox 93 L 06/10/23 07:54 FiO2 Intake & Output 06/09/23 06/10/23 06/10/23 18:59 06:59 18:59 Other: Voiding Method Toilet # Voids 1 2 # Bowel Movements 1 - Exam GENERAL DESCRIPTION: A middle-age female up in the room in no distress RESPIRATORY SYSTEM: Unlabored breathing , clear to auscultation anteriorly HEART: S1 S2 regular rate and rhythm , ABDOMEN: Soft , no tenderness EXTREMITIES: No edema feet - Labs CBC & Chem 7: 06/09/23 05:51 06/09/23 05:51 Labs: Abnormal Lab Results - Last 24 Hours (Table) 06/10/23 Range/Units 07:29 ESR 113 H (0-20) mm/Hr Microbiology - Last 24 Hours (Table) 06/05/23 14:31 Anaerobic Culture - Final Other - Other 06/05/23 14:30 Anaerobic Culture - Final Other - Other 06/05/23 14:31 Gram Stain - Final Other - Other Tissue Culture - Final Assessment and Plan (1) Discitis Current Visit: Yes Status: Acute Code(s): M46.40 - DISCITIS, UNSPECIFIED, SITE UNSPECIFIED SNOMED Code(s): 6310798 Plan: 1patient present to hospital with abnormal CT of the thoracolumbar spine in this patient who did have a history of IV drug use did have history of fall with the CT suspicious for compression fracture versus discitis patient do have risk factor of IV drug use that would put her at risk of discitis and osteomyelitis to the thoracolumbar spine area , patient did have an MRI of the thoracolumbar spine is suspicious for osteomyelitis/discitis T9-T10 with some phlegmon but no abscess case discussed with the spine surgeon recommending IR aspiration of the area which was completed on 06/05/2023 2blood culture has been obtained and a CT-guided aspirate of the thoracic spine are so far negative 3patient to continue with the vancomycin and Rocephin , Plan is for PICC line and 6week course of antibiotic Currently waiting for PICC line placement outpatient IV antibiotic arrangement, prescription was provided to the machine adjuster leader case trim Dictation was produced using [employer] dictation software. please excuse any grammatical, word or spelling errors. Time with Patient: Less than 30
[2023-06-10] MEDS ORDERED: VANCOMYCIN TROUGH DUE 1 EACH MISC MISCELLANE ONE (13:00)
[2023-06-10 13:12] LABS: African American GFR (CKD) >90 (>60 ml/min/1.73 sqM); Anion Gap 13 mmol/L; Blood Urea Nitrogen 14 mg/dL (7-17); Carbon Dioxide 33 mmol/L (22-30); Chloride 95 mmol/L (98-107); Glucose 85 mg/dL (74-99); Non-African American GFR(CKD) >90 (>60 ml/min/1.73 sqM); Potassium 4.4 mmol/L (3.5-5.1); Sodium 141 mmol/L (137-145)
[2023-06-10] MEDS: ACETAMINOPHEN TAB 325 MG TAB PO PRN (15:53)
--- NOTE | 2023-06-10 18:44 | P.PN ---
Subjective Progress Note Date: 06/10/23 ; patient is 47-year-old lady with past medical significant for depression, chronic methadone use, IV drug use presented to the ER for back pain. Patient was seen in the ER 2 days ago for similar complaints at which time CT imaging remarkable for compression fracture at T9-10 with surrounding soft tissue inflammation, Radiology recommends rule out possible discitis for which inflammatory markers were ordered. Patient stated that she has been feeling lethargic and weak for the last few days. Patient was also complaining of chills but didn't check her fevers. Patient was also complaining of nausea but no vomiting. No current chest pain or shortness of breath. Denies any abdominal pain. Denies any increased frequency of urination or burning micturition. Patient inflammatory markers came back elevated with ESR of 100, patient was called to come back ER Initial lab work done in the ER showed WBC 8, hemoglobin 11.7, platelet count 305, sodium 139, potassium 3.7, BUN 19, creatinine 0.64, ESR 100 patient was admitted to medicine service 06/02. Patient seen and examined. Still having back pain. Denies any urinary or bowel incontinence. Denies any numbness of her buttocks. Vital signs stable 06/03. Patient seen and examined. Still having back pain. Currently scheduled for MRI today. 06/04/2023 Patient is seen in follow-up today continues to have pain awaiting documentation from [facility] to continue with methadone. Patient was scheduled for MRI yesterday although unable to handle and will give IV Ativan today and currently plan for this afternoon. Patient being followed by infectious disease along with orthopedics awaiting MRI for further treatment plans moving forward. Patient is afebrile with no reported chest pain or shortness of breath. Patient is tolerating diet and continued on cefepime and vancomycin with infectious disease following closely. Will await MRI report. 06/05/2023 Patient is seen in follow-up today with orthopedics and infectious disease following. Patient underwent MRI which was suggestive of osteomyelitis and discitis with no plans of surgical intervention per orthopedics and will be requiring antibiotic therapy. Infectious disease following recommending IR consultation for needle aspiration of the area to determine appropriate discharge antibiotics. There is concern as patient had history of IV drug abuse and relapse the patient will be unable to safely receive a PICC line for outpatient antibiotic therapy. Case management/social work will be following working on discharge planning and arranging for IV antibiotic therapy outpatient possibly at the clinic. Patient does go to outpatient [facility] Saturday through Saturday and is continued on methadone. Patient reports a fall yesterday, unwitnessed and having back pain which she has been having since admission. 06/06/2023 Patient is seen and evaluated in follow-up today being followed by infectious disease along with orthopedics. No surgical interventions per orthopedics and patient is status post IR guided needle aspiration awaiting finalized cultures. Patient is maintained on cefepime along with vancomycin with infectious disease following closely. Patient continues on pain management along with her scheduled methadone that she receives at [facility]. Patient follows with [facility] in the outpatient setting 6 days per week. Patient will likely need long-term IV antibiotics although patient has a past history of IV drug abuse with relapse and will be unable to go home with a PICC line unless sent to an ECF for continued IV antibiotic therapy. Case management following and awaiting further instructions from infectious disease on discharge planning. Patient is afebrile no reported chest pain or shortness of breath. Patient denies nausea or vomiting and has been tolerating diet. 06/08/2023, the patient is seen and evaluated in room at bedside; denies any fever or any chills, the patient is breathing comfortably on room air without any need for supplemental oxygen, the patient denies any chest pain or any cough , patient denies abdominal pain, no nausea/vomiting diarrhea , the patient has been complaining of pain to lower back area and blaming the hospital bed for it, per the nursing staff patient is refusing cefepime as she cannot keep her hands still for 4 hours Patient had a white count is normal at 7.85 creatinine is 0.49 as of 06/16/2023, no labs drawn today, blood culture negative, CT-guided aspirate cultures are pending 06/09/2023 the patient is seen and evaluated in room at bedside remains to be afebrile , the patient is breathing comfortably on room air and denies any shortness of breath, the patient denies any chest pain cough or sputum production, patient denies nausea/vomiting/ diarrhea and no abdominal pain , denies worsening pain to lower back area Patient had a white count is normal at 7.5 creatinine is 0.55, blood culture negative, CT-guided aspirate cultures are negative so far --patient present to hospital with abnormal CT of the thoracolumbar spine in this patient who did have a history of IV drug use did have history of fall with the CT suspicious for compression fracture versus discitis patient do have risk factor of IV drug use that would put her at risk of discitis and osteomyelitis to the thoracolumbar spine area , patient did have an MRI of the thoracolumbar spine is suspicious for osteomyelitis/discitis T9-T10 with some phlegmon but no abscess case discussed with the spine surgeon recommending IR aspiration of the area which was completed on 06/05/2023 --blood culture has been obtained and a CT-guided aspirate of the thoracic spine are currently pending --patient to continue with the vancomycin and Rocephin , Plan is for PICC line and 6week course of antibiotic and close outpatient follow-up 06/10/2023 Patient is seen in follow-up today with infectious disease following an maintained on antibiotics. Plan is for patient receive a PICC line although per nursing staff Honing Machine Operator is reporting not enough staffing to accommodate PICC line today and will be possibly placed tomorrow. There was concern with patient's previous history of IV drug abuse with relapse that she would be high risk with having a PICC line going home and risk management was consulted. Risks versus benefits were explained to the patient in detail and patient continues to wish to go home with PICC line and IV antibiotics. Case management has prescription for antibiotics and being arranged for outpatient. Patient is currently afebrile with no reports of chest pain or shortness of breath. Patient denies nausea or vomiting and tolerating diet. Patient will continue to follow with [facility] Saturday through Saturday in the outpatient setting. REVIEW OF SYSTEMS: CONSTITUTIONAL: No fever, no malaise,. CARDIOVASCULAR: No chest pain, no palpitations, no syncope. PULMONARY: No shortness of breath, no cough, GASTROINTESTINAL: No diarrhea, no nausea, no vomiting, no abdominal pain. NEUROLOGICAL: No headaches, no weakness, reports continued mid back pain PHYSICAL EXAMINATION: GENERAL: The patient is alert and oriented x3, . Well developed, well nourished. Obese HEENT: Pupils are round and equally reacting to light. EOMI. No scleral icterus. No conjunctival pallor. Normocephalic, atraumatic. No pharyngeal erythema. No thyromegaly. CARDIOVASCULAR: S1 and S2 present. No murmurs, rubs, or gallops. PULMONARY: Chest is clear to auscultation, no wheezing or crackles. ABDOMEN: Soft, nontender, nondistended, normoactive bowel sounds. No palpable organomegaly. MUSCULOSKELETAL: No joint swelling or deformity. EXTREMITIES: No cyanosis, clubbing, or pedal edema. NEUROLOGICAL: Gross neurological examination did not reveal any focal deficits. SKIN: No rashes. Assessment: Acute intractable back pain Compression fracture of T9-T10 discitis of T9-T10 with concerns of osteomyelitis, per MRI Obesity with a BMI of 30.0 History of depression with PTSD Continued ongoing nicotine dependence THC use Past IV drug abuser, relapsed DVT prophylaxis GI prophylaxis Full code Plan: Patient underwent MRI with concerns of of discitis with osteomyelitis with orthopedics and infectious disease following. Interventional radiology p erformed needle aspiration of the area of concern and cultures thus far are negative. Blood cultures thus far remain negative. Continue IV antibiotics in the form of cefepime and vancomycin per ID re commendations TLSO brace was ordered and patient has been approved to wear while out of bed per orthopedics. Patient has not been wearing the brace and up and walking Patient takes methadone and has been confirmed from [facility] and reordered. Patient will continue to follow with [facility] in the outpatient setting Saturday through Saturday for her methadone Needle aspiration has been negative thus far and lengthy discussion was had between infectious disease with risk management contacted although unsuccessful 2. Patient along with nursing staff and infectious disease have discussed at length about discharge planning and risks of continuing with IV antibiotic therapy with a PICC line in the outpatient setting as patient does have history of drug abuse with relapse. Patient reports her relapse was months ago and also reports this will not occur again. Patient is adamant she is going home in case management following will arrange for IV antibiotics therapy in the outpatient setting. An order for PICC line was placed although due to decreased staffing in the [facility] [employer] [facility], PICC line will be placed in the a.m. Case management to follow in arranging for outpatient antibiotics Patient will possibly be discharged in 24 hours once receiving a PICC line. The impression and plan of care has been dictated by Allison Saul, Nurse Practitioner as directed. Dr. Jimmy MD I have performed a history and examination and MDM of this patient, discussed the same with the dictator, and agree with the dictator's assessment and plan as written ,documented as a scribe. Based on total visit time, I have performed more than 50% of the visit. Objective - Vital Signs Vital signs: Vital Signs Temp 97.8 F 06/10/23 07:54 Pulse 78 06/10/23 07:54 Resp 20 06/10/23 07:54 BP 121/80 06/10/23 07:54 Pulse Ox 93 L 06/10/23 07:54 FiO2 Intake & Output 06/09/23 06/10/23 06/10/23 18:59 06:59 18:59 Other: Voiding Method Toilet # Voids 1 2 # Bowel Movements 1 - Labs CBC & Chem 7: 06/09/23 05:51 06/10/23 12:35 Labs: Microbiology - Last 24 Hours (Table) 06/05/23 14:31 Gram Stain - Final Other - Other Tissue Culture - Final
[2023-06-11] MEDS: HYDROmorphone 0.5 MG/0.5 ML SYRINGE IVP PRN ×3 (00:15→06:04)
[2023-06-11] MEDS: VANCOMYCIN 1,500 MG in SODIUM CHLORIDE 0.9% 500 ML 500 ML IVPB SCH ×2 (00:15→00:40)
[2023-06-11] MEDS ORDERED: LIDOCAINE 1% INJ 10MG/ML (20 ML MDV) SQ ONE (08:44)
[2023-06-11 08:53] VITALS: BP 113/60; PULSE 85; RESP 18; TEMP 98.4
--- NOTE | 2023-06-11 09:22 | IR ---
PICC LINE PLACEMENT: HISTORY: Infection requiring long-term antibiotic therapy PROCEDURE: Ultrasound and fluoroscopic guidance of PICC line placement. COMPLICATIONS: None ANESTHESIA: 1. 1% Lidocaine locally. FINDINGS/TECHNIQUE: The procedure was explained to the patient. The risks, complications, benefits and alternatives were discussed and any questions were answered. Informed consent was obtained. The patient was placed supine on the fluoroscopic table and prepped and draped in the usual sterile fash ion. Utilizing a 21 gauge needle and sonographic and fluoroscopic guidance, access in the left basi lic vein was achieved and there is placement of a 0.018 guidewire. The vein is patent. A 4-F sheath was placed over the guidewire. The guidewire and dilator were removed and a 4-F. PICC line was plac ed through the sheath with the tip at the level of the SVC. The sheath was removed, the catheter was flushed and sutured into position. The patient was stable throughout the procedure and remained sta ble upon discharge from the Department of Radiology. The vein puncture was patent under ultrasound. A etienne scale image was obtained to document patency of the vein punctured. All elements of the maximal barrier technique were utilized. FLUOROSCOPY TIME: DAP 0.12Gy cm2 IMPRESSION: Successful PICC line placement under ultrasound and fluoroscopic guidance.
[2023-06-11] MEDS ORDERED: VANCOMYCIN 1,500 MG in SODIUM CHLORIDE 0.9% 500 ML 500 ML IVPB SCH (10:00)
[2023-06-11] MEDS: hydrOXYzine pamoate 25 MG CAP PO SCH (10:06)
[2023-06-11] MEDS: METHADONE 10 MG TAB PO SCH (10:07)
[2023-06-11] MEDS: SERTRALINE 50 MG TAB PO SCH (10:07)
[2023-06-11] MEDS: QUEtiapine 100 MG TAB PO SCH (10:07)
[2023-06-11] MEDS: HYDROcodone/APAP 5-325MG 1 EACH TAB PO PRN (10:30)
--- NOTE | 2023-06-11 11:20 | P.DS ---
Providers Date of admission: 06/01/23 11:29 Expected date of discharge: 06/11/23 Attending physician: Wilfredo Vanegas MD Consults: 06/01/23 10:09 Consult Physician Routine Consulting Provider: Denise Mason Consult Reason/Comments: compression fracture versus discitis Do you want consulting provider notified?: Yes Consult Physician Stat Consulting Provider: Marcella Carlos Consult Reason/Comments: Discitis Do you want consulting provider notified?: Yes Primary care physician: Lou Araujo Hospital Course: Final diagnosis Acute intractable back pain Compression fracture of T9-T10 discitis of T9-T10 with concerns of osteomyelitis, per MRI Obesity with a BMI of 30.0 History of depression with PTSD Continued ongoing nicotine dependence THC use Past IV drug abuser, relapsed DVT prophylaxis GI prophylaxis Full code Discharge disposition Patient is being discharged in a stable condition with guarded prognosis to home with home care. Patient will follow-up with Dr. Gareth Marquez in the outpatient setting upon discharge. Patient is to continue with a PICC line and outpatient IV antibiotics per infectious disease and close outpatient follow-up with Dr. Carlos as well as orthopedics outpatient as scheduled. Patient to continue following with [facility] Saturday through Saturday for medications. Total time taken is greater than 35 minutes. Hospital course This is a 47-year-old female who was recently admitted with severe back pain and found to have a compression fracture of T9-[address] with surrounding soft tissue inflammation with concerns of discitis with osteo-. Patient did undergo MRI which confirms the patient maintained on IV antibiotics. Cultures along with aspiration of the area have been negative thus far. Patient with significant history of IV drug abuse with relapse with high concerns of having a PICC line in the outpatient setting. Patient was counseled extensively on avoiding all IV drug abuse and risks versus benefits were explained regarding the PICC line and this was discussed in detail with nursing staff along with infectious disease and patient and family member at bedside each day. Patient is high risk with previous history of drug abuse and reports she is currently going to [facility] daily Saturday through Saturday for her methadone and her last relapse was over 2 months ago and understands the importance of the PICC line for IV antibiotics only. Extremely guarded prognosis given patient's history. Patient has received a PICC line and will be going on IV antibiotics with close outpatient follow-up with infectious disease. Risk management was attempted to be contacted in regard to this PICC line although unsuccessful attempts 2. Patient has been counseled extensively from multiple providers and nursing staff regarding complete abstinence from any drug abuse. Patient is maintained on methadone and reports to [facility] Saturday through Saturday. Patient is also been instructed to follow-up with orthopedics outpatient as well as continued home care and follow-up with primary care provider on discharge. Patient has been cleared by consultations and will be discharged home today. Currently no re ports of chest pain, shortness of breath, or palpitations. Patient is afebrile. No reports of nausea or vomiting and patient is tolerating diet. Patient will be discharged home with home care. Extremely guarded prognosis given patient's significant IV drug abuse history. Physical exam: Gen: This is a 47-year-old female who is awake, alert and oriented 3, well- developed, well-nourished, obese HEENT: Head is atraumatic, normocephalic. Pupils equal, round. Sclerae is anicteric. NECK: Supple. No JVD. No lymphadenopathy. No thyromegaly. LUNGS: Clear to auscultation. No wheezes or rhonchi. No intercostal retractions. HEART: Regular rate and rhythm. No murmur. ABDOMEN: Soft. Bowel sounds are present. No masses. No tenderness. EXTREMITIES: No pedal edema. No calf tenderness. NEUROLOGICAL: Patient is awake, alert and oriented x3. Cranial nerves 2 through 12 are grossly intact. Please refer to medication reconciliation sheet for a list of medications. The impression and plan of care has been dictated by Allison Saul, Nurse Practitioner as directed. Dr. Jimmy MD I have performed a history and examination and MDM of this patient, discussed the same with the dictator, and agree with the dictator's assessment and plan as written ,documented as a scribe. Based on total visit time, I have performed more than 50% of the visit. Patient Condition at Discharge: Fair Plan - Discharge Summary Discharge Rx Participant: Yes New Discharge Prescriptions: New Vancomycin 1,500 mg IVPB Q12H each Nicotine Gum (Polacrilex) [Nicorette] 2 mg BUCCAL Q4HR PRN pieceofgum PRN Reason: Nicotine Cravings cefTRIAXone [Rocephin] 2 gm IVPB Q24HR each Acetaminophen Tab [Tylenol] 650 mg PO Q6HR PRN tab PRN Reason: Mild Pain Or Fever > 100.5 Continue hydrOXYzine pamoate 50 mg PO TID Sertraline [Zoloft] 150 mg PO DAILY Albuterol Sulfate [Albuterol Sulfate Hfa] 2 puff PO RT-Q6H PRN PRN Reason: Shortness Of Breath QUEtiapine FUMARATE [SEROquel] 300 mg PO HS Methadone HCl [Methadone Intensol] 150 mg PO DAILY QUEtiapine [SEROquel] 100 mg PO DAILY Discharge Medication List QUEtiapine FUMARATE [SEROquel] 300 mg PO HS 11/08/22 [History] Sertraline [Zoloft] 150 mg PO DAILY 11/08/22 [History] hydrOXYzine pamoate 50 mg PO TID 11/08/22 [History] Albuterol Sulfate [Albuterol Sulfate Hfa] 2 puff PO RT-Q6H PRN 06/01/23 [History] Methadone HCl [Methadone Intensol] 150 mg PO DAILY 06/01/23 [History] QUEtiapine [SEROquel] 100 mg PO DAILY 06/01/23 [History] Acetaminophen Tab [Tylenol] 650 mg PO Q6HR PRN tab 06/11/23 [Rx] Nicotine Gum (Polacrilex) [Nicorette] 2 mg BUCCAL Q4HR PRN pieceofgum 06/11/23 [Rx] Vancomycin 1,500 mg IVPB Q12H each 06/11/23 [Rx] cefTRIAXone [Rocephin] 2 gm IVPB Q24HR each 06/11/23 [Rx] Follow up Appointment(s)/Referral(s): Fam Gillis PAC [PHYSICIAN CORRECTION OFFICER REFORMATORY] - 3 Weeks (Patient may follow-up with Fam Gillis PA-C or Dr. Bello Mason at [facility] in 2-3 weeks following discharge. ) [facility], [NON-STAFF] - As Needed Lou Araujo MD [Primary Care Provider] - 1-2 days [facility] [REFERRING] - As Needed Marcella Carlos MD [STAFF PHYSICIAN] - 1 Week [facility] [NON-STAFF] - As Needed (TLSO back brace) Activity/Diet/Wound Care/Special Instructions: 1. Patient should utilize TLSO bracing for comfort support was sitting upright at greater than 45, during increased activities, and during ambulation 2. Patient should avoid excessive bending, twisting, lifting activities; no lifting greater than 10 pounds Patient follow-up with orthopedics outpatient Follow-up with infectious disease outpatient Continue to follow with [facility] as previous scheduled Saturday through Saturday Follow-up primary care provider on discharge Discharge Disposition: HOME WITH HOME HEALTH SERVICES
--- NOTE | 2023-06-11 14:10 | P.PN ---
Subjective Progress Note Date: 06/11/23 Principal diagnosis: Abnormal computed tomography scan concerning for osteomyelitis/discitis Patient is a 47-year-old female with a past medical history significant for IV drug use last use was abot a week go patient also have a history of cervical cancer hypertension and hepatitis. Previous history of MRSA infection patient is presenting to [facility] ER for evaluation of back pain he did have abnormal CT of the lumbosacral spine in the outpatient setting. On today's evaluation that is 06/11/2023, the patient remains to be afebrile , the patient is breathing comfortably on room air , the patient denies chest pain shortness of breath or cough , patient denies nausea/vomiting/ diarrhea and no abdominal pain, the patient denies worsening pain to lower back area Patient had a white count is normal at 7.5 as of 06/09/2023 creatinine is 0.57 as of 06/10/2023, blood culture negative, CT-guided aspirate cultures are negative so far Objective - Vital Signs Vital signs: Vital Signs Temp 98.4 F 06/11/23 07:12 Pulse 85 06/11/23 07:12 Resp 18 06/11/23 07:12 BP 113/60 06/11/23 07:12 Pulse Ox 97 06/11/23 07:12 FiO2 Intake & Output 06/10/23 06/11/23 06/11/23 18:59 06:59 18:59 Other: Voiding Method Toilet # Voids 3 3 - Exam GENERAL DESCRIPTION: A middle-age female up in the room in no distress RESPIRATORY SYSTEM: Unlabored breathing , clear to auscultation anteriorly HEART: S1 S2 regular rate and rhythm , ABDOMEN: Soft , no tenderness EXTREMITIES: No edema feet - Labs CBC & Chem 7: 06/09/23 05:51 06/10/23 12:35 Labs: Abnormal Lab Results - Last 24 Hours (Table) 06/10/23 Range/Units 12:35 Chloride 95 L (98-107) mmol/L Carbon Dioxide 33 H (22-30) mmol/L Microbiology - Last 24 Hours (Table) 06/05/23 14:31 Anaerobic Culture - Final Other - Other 06/05/23 14:30 Anaerobic Culture - Final Other - Other 06/05/23 14:31 Gram Stain - Final Other - Other Tissue Culture - Final Assessment and Plan (1) Discitis Current Visit: Yes Status: Acute Code(s): M46.40 - DISCITIS, UNSPECIFIED, SITE UNSPECIFIED SNOMED Code(s): 8949895 Plan: 1patient present to hospital with abnormal CT of the thoracolumbar spine in this patient who did have a history of IV drug use did have history of fall with the CT suspicious for compression fracture versus discitis patient do have risk factor of IV drug use that would put her at risk of discitis and osteomyelitis to the thoracolumbar spine area , patient did have an MRI of the thoracolumbar spine is suspicious for osteomyelitis/discitis T9-T10 with some phlegmon but no abscess case discussed with the spine surgeon recommending IR aspiration of the area which was completed on 06/05/2023 2blood culture has been obtained and a CT-guided aspirate of the thoracic spine are so far negative, both aerobic and anaerobic 3patient to continue with the vancomycin and Rocephin x 5weeks, with weekly monitoring of CRP and a sed rate and close outpatient follow-up, patient has been instructed once again she cannot inject anything else besides antibiotic a nd the patient replied she has no intention to do so Dictation was produced using [employer] dictation software. please excuse any grammatical, word or spelling errors. Time with Patient: Less than 30
== END 2023-06-11 15:19 | disposition home health service (06) | DRG 347 ==
LOC: EC 08:09 → 4SSUR 11:29
PROVIDERS: ADMIT Internal Medicine; ATTEND Internal Medicine
PROC: 0P943ZX Drainage of Thoracic Vertebra, Percutaneous Approach, Diagnostic (ICD-10-PCS; principal; 2023-06-05)
PROC: 02HV33Z Insertion of Infusion Device into Superior Vena Cava, Percutaneous Approach (ICD-10-PCS; 2023-06-11)
DX: M46.44 Discitis, unspecified, thoracic region (principal); M46.24 Osteomyelitis of vertebra, thoracic region; M48.54XA Collapsed vertebra, not elsewhere classified, thoracic region, initial encounter for fracture; E66.9 Obesity, unspecified; F11.10 Opioid abuse, uncomplicated; F17.210 Nicotine dependence, cigarettes, uncomplicated; F17.220 Nicotine dependence, chewing tobacco, uncomplicated; F43.10 Post-traumatic stress disorder, unspecified; I10 Essential (primary) hypertension; R29.6 Repeated falls; Z91.81 History of falling; Z88.5 Allergy status to narcotic agent; Z88.2 Allergy status to sulfonamides; Z71.51 Drug abuse counseling and surveillance of drug abuser; Z86.19 Personal history of other infectious and parasitic diseases; Z86.14 Personal history of Methicillin resistant Staphylococcus aureus infection; Z85.41 Personal history of malignant neoplasm of cervix uteri
CPT/HCPCS: 36410; 36415; 36573; 72157; 76937; 77012; 80048; 80053; 80202; 83605; 83735; 85025; 85027; 85610; 85652; 86140; 87040; 87070; 87075; 87205; 96365; 96366; 96368; 96375; 99285

== ENCOUNTER → 2024-01-29 | Outpatient (CLI) | payer OTHER ==
--- NOTE | 2024-01-29 09:20 | XR ---
EXAMINATION TYPE: XR femur LT DATE OF EXAM: 01/29/2024 COMPARISON: NONE HISTORY: Pain TECHNIQUE: 5 views FINDINGS: Joint space fairly well preserved. There is no acute fracture. No dislocation. No destructi ve changes. Vascular calcification pelvis and mild hypertrophic changes in the lower lumbar IMPRESSION: No acute process.
--- NOTE | 2024-01-29 09:21 | XR ---
EXAMINATION TYPE: XR Hip Complete LT DATE OF EXAM: 01/29/2024 COMPARISON: NONE HISTORY: Pain TECHNIQUE: 2 views submitted FINDINGS: There is no evidence of erosive change or acute fracture. Metallic lesion overlying the pelvis. Vascular phleboliths. Mild hypertrophic changes in the acetabul um. IMPRESSION: 1. No evidence of acute fracture or dislocation. Joint space is fairly well preserved with mild hyper trophic changes in the acetabulum, occasionally can be associated with femoral acetabular impingement .
== END | disposition home or self-care (01) ==
LOC: RADXRMAIN 08:41
PROVIDERS: ATTEND Family Medicine
DX: M25.552 Pain in left hip (principal); M79.652 Pain in left thigh
CPT/HCPCS: 73502

== ENCOUNTER → 2024-02-18 | Outpatient (CLI) | payer OTHER ==
--- NOTE | 2024-02-18 09:09 | US ---
EXAMINATION TYPE: US abdomen complete DATE OF EXAM: 02/18/2024 COMPARISON: NONE CLINICAL INDICATION: Female, 48 years old with history of E78.0 MIXED HYPERLIPIDEMIA R11.0 NAUSEA; Na usea x 1-2 months; [place] diabetic; Bladder sling; Spine surgery in june causing back yeast infecgtion. TECHNIQUE: Multiple sonographic images of the abdomen are obtained. FINDINGS: EXAM MEASUREMENTS: Liver Length: 14.9 cm Gallbladder Wall: Surgically absent cm CBD: 0.3 cm Spleen: 13.5 cm Right Kidney: 11.2 x 4.9 x 4.9 cm Left Kidney: 11.6 x 5.2 x 6.4 cm NON PROFIT JOB TITLES NOTES: RLQ Hernia redemonstrated Pancreas: wnl Liver: Increased attenuation Gallbladder: Surgically absent Evidence for sonographic Noe's sign: NO CBD: wnl Spleen: wnl Right Kidney: wnl Left Kidney: wnl Upper IVC: wnl Abd Aorta: wnl The liver is homogenous. The intrahepatic portion of the IVC and proximal abdominal aorta are within normal limits. There is no evidence of cholelithiasis. Common bile duct is unremarkable. The visu alized portions of the pancreas are homogenous. The spleen is unremarkable. Kidneys are symmetric a nd free of hydronephrosis. No renal lesions are seen. IMPRESSION: No discrete abnormality appreciated.
== END | disposition home or self-care (01) ==
LOC: RADUSWWP 08:46
PROVIDERS: ATTEND Family Medicine
DX: E78.2 Mixed hyperlipidemia (principal); R11.0 Nausea; E11.9 Type 2 diabetes mellitus without complications
CPT/HCPCS: 76700

== ENCOUNTER → 2024-02-26 | Outpatient (CLI) | payer OTHER ==
--- NOTE | 2024-02-26 11:45 | CT ---
EXAMINATION TYPE: CT thoracic spine wo con CT DLP: 750.50 mGycm, Automated exposure control for dose reduction was used. DATE OF EXAM: 02/26/2024 11:24 AM COMPARISON: CT thoracolumbar spine 05/30/2023, MR thoracic spine 06/04/2023. CLINICAL INDICATION:Female, 48 years old with history of M86.10 OTHER ACUTE OSTEOMYELITIS, UNSPECIFI M51.14; PHH, Other acute osteomyelitis, pain since back surgery TECHNIQUE: Axial images of the thoracic spine were obtained without contrast. Coronal and sagittal re formats were performed. FINDINGS: Postsurgical changes with bilateral pedicular screws involving T7, T8, T11 and T12. There a re bilateral rods at these levels. These bridge previously seen osseous erosive changes involving the majority of the T9 vertebral body and approximately the superior 50% of the T10 vertebral body. The erosive changes are increased from prior CT with a few foci of gas. Laminectomy changes identified at the T9-T10 level. Surrounding paravertebral soft tissue inflammatory changes identified at the T9-T1 0 levels. The hardware creates streak artifact which limits evaluation. No new fracture identified. No spondylolisthesis. The bilateral T7 pedicle screws course anteriorly o f the anterior vertebral body cortex approximately 2 mm. Additionally the right T11 pedicle screw cou rses anterior to the vertebral cortex approximately 8 mm. The bilateral T12 pedicular screws course a pproximately 4 to 5 mm anterior to the vertebral cortex. New single focus of gas is identified within the T8-T9 disc space with similar appearance of the inferior endplate. The osseous erosions involvin g the T9 vertebral body extending into the superior endplate. Epidural abscesses are not excluded. No gross evidence of significant spinal canal narrowing at any thoracic body level. No gross evidence of significant neural foraminal stenosis. Visualized portions of the lungs are clear. Visualized portion of the liver is diffusely hypoattenuat ing consistent with fatty infiltration. IMPRESSION: Postsurgical changes from T7-T12 with hardware intact. Interval vertebral augmentation involving prev iously demonstrated osseous erosive changes involving the T9-T10 vertebral body levels. However there is progressive osseous erosive changes involving the T9 and T10 vertebral bodies from prior CT with surrounding paravertebral soft tissue inflammatory changes. Findings raise concern for possib le recurrent osteomyelitis/discitis versus treated change. Additionally new single focus of gas ident ified within the T8-T9 disc space with osseous erosive change involving the T9 superior endplate. Can not exclude developing osteomyelitis/discitis at this level. Consider further evaluation with MRI tho racic spine with IV contrast.
== END | disposition home or self-care (01) ==
LOC: RADCTMAIN 10:59
PROVIDERS: ATTEND Neurological Surgery
DX: M86.10 Other acute osteomyelitis, unspecified site (principal); M51.14 Intervertebral disc disorders with radiculopathy, thoracic region
CPT/HCPCS: 72128

== ENCOUNTER 2024-04-28 11:17 | Day surgery (SDC) | payer OTHER ==
[2024-04-28 12:03] VITALS: RESP 16; TEMP 97.4
[2024-04-28] MEDS ORDERED: LIDOCAINE 1% (10MG/ML) FOR IV START INTRADERMA PRN (12:11)
[2024-04-28] MEDS: IV FLUID CONTINUATION 1,000 ML IV ONE (12:46)
[2024-04-28] MEDS: LACTATED RINGERS 1,000 ML IV SCH (12:48)
[2024-04-28] MEDS ORDERED: LIDOCAINE 1% INJ 10MG/ML (20 ML MDV) ONE (13:03)
[2024-04-28] MEDS ORDERED: PROPOFOL 10 MG/ML 20 ML VIAL IV ONE (13:03)
--- NOTE | 2024-04-28 13:20 | P.PCN ---
Date of Procedure: 04/28/24 Procedure(s) Performed: Brief history: Patient is a pleasant 48-year-old white female scheduled for an elective upper endoscopy as well as colonoscopy as a part of evaluation of dysphagia and screening for colon cancer Procedure performed: Esophagogastroduodenoscopy with biopsy Colonoscopy Preoperative diagnosis: Dysphagia Screening for colon cancer Anest[place]: [facility] Procedure: After informed consent was obtained from the patient was brought into the endoscopy unit and IV sedation was administered by anesthesia under continuous monitoring. Initially upper endoscopy was done. The Olympus GF 160 video endoscope was inserted inserted into the mouth and esophagus intubated without any difficulty and was gradually advanced into the stomach and duodenum and carefully examined. The bulb and second part of the duodenum appeared normal. The scope was then withdrawn into the stomach adequately insufflated with air and upon careful examination the antrum diffuse gastritis and biopsies were done from this area. Mucosa body, cardia and fundus appeared normal. The scope was then withdrawn into the esophagus. The GE junction was located at 40 cm to the incisors. It appeared regular with no erythema erosions or ulcerations. Rest of the esophagus appeared normal apices were done from the distal esophagus. Patient tolerated the procedure well. At this time the patient continued to remain sedation. Initial digital rectal examination was normal. Olympus CF 160 video colonoscope was then inserted into the rectum and gradually advanced to the cecum without any difficulty. Careful examination was performed as the scope was gradually being withdrawn. The prep was fair.. The cecum, ascending colon, transverse colon, descending colon, sigmoid colon and rectum appeared normal. Retroflexion was performed in the rectum and no lesions were noted. Patient tolerated the procedure well. Impression: 1. Upper endoscopy revealed diffuse antral gastritis but no evidence of esophagitis or esophageal stricture 2. Colonoscopy was within normal limits with evidence of colorectal neoplasia Recommendations: Findings of this examination were discussed with the patient as well as her family. She was advised to follow with the biopsy results. Recommended repeat colonoscopy in 10 years.
[2024-04-28] MEDS: IV FLUID CONTINUATION 700 ML IV ONE (13:29)
[2024-04-28 13:53] VITALS: BP 100/57; PULSE 80
== END 2024-04-28 14:24 | disposition home or self-care (01) ==
LOC: ORWHC2ENDO 11:17
PROVIDERS: ATTEND Internal Medicine Gastroenterology
DX: Z12.11 Encounter for screening for malignant neoplasm of colon (principal); R13.10 Dysphagia, unspecified; K29.70 Gastritis, unspecified, without bleeding; K31.89 Other diseases of stomach and duodenum; F32.A Depression, unspecified; F43.10 Post-traumatic stress disorder, unspecified; J44.9 Chronic obstructive pulmonary disease, unspecified; F17.210 Nicotine dependence, cigarettes, uncomplicated; Z79.899 Other long term (current) drug therapy; Z86.19 Personal history of other infectious and parasitic diseases; Z88.2 Allergy status to sulfonamides; Z88.6 Allergy status to analgesic agent
CPT/HCPCS: 88305; 45378; 43239; J2003; J2704

== ENCOUNTER → 2024-08-05 | Outpatient (CLI) | payer OTHER ==
[2024-08-05 19:55] LABS: ALT 38 U/L (8-44); AST 31 U/L (13-35); Albumin 3.9 g/dL (3.8-4.9); Alkaline Phosphatase 147 U/L (41-126); BUN/Creat Ratio 23.09 Ratio (12.00-20.00); Blood Urea Nitrogen 25.4 mg/dL (9.0-27.0); Calcium 9.3 mg/dL (8.7-10.3); Carbon Dioxide 29.4 mmol/L (21.6-31.8); Chloride 102 mmol/L (96-109); Glucose 103 mg/dL (70-110); Potassium 4.4 mmol/L (3.5-5.5); Sodium 143 mmol/L (135-145); Total Bilirubin <0.2 mg/dL (0.3-1.2); Total Protein 6.9 g/dL (6.2-8.2)
[2024-08-05 20:11] LABS: Basophils # (A) 0.03 X 10*3/uL (0.00-0.10); Basophils % (A) 0.5 %; Eosinophils # (A) 0.09 X 10*3/uL (0.04-0.35); Eosinophils % (A) 1.5 %; HCT 33.1 % (37.2-46.3); HGB 10.6 g/dL (12.0-15.0); Lymphocytes # (A) 2.29 X 10*3/uL (0.90-5.00); Lymphocytes % (A) 38.4 %; MCV 93.8 FL (80.0-97.0); Mean Platelet Volume 11.5 FL (9.5-12.2); Monocytes # (A) 0.37 X 10*3/uL (0.20-1.00); Monocytes % (A) 6.2 %; NRBC Per 100 WBC 0 X 10*3/uL (0.00-0.01); Neutrophils # (A) 3.18 X 10*3/uL (1.80-7.70); Neutrophils % (A) 53.2 %; Platelet Count 198 X 10*3/uL (140-440); RBC 3.53 X 10*6/uL (4.10-5.20); RDW 14.3 % (11.5-14.5); WBC 5.97 X 10*3/uL (4.50-10.00)
[2024-08-06 11:33] LABS: Hepatitis B Virus DNA DETECTED (Not detected); Log HBV IU/mL 4.57 (<1.00)
== END | disposition home or self-care (01) ==
LOC: LABWHC1 14:03
PROVIDERS: ATTEND Internal Medicine Gastroenterology
DX: B18.1 Chronic viral hepatitis B without delta-agent (principal)
CPT/HCPCS: 36415; 80053; 85025; 87517

== ENCOUNTER → 2024-08-25 | Outpatient (CLI) | payer OTHER ==
--- NOTE | 2024-08-25 09:11 | US ---
EXAMINATION TYPE: US liver DATE OF EXAM: 08/25/2024 COMPARISON: US(02/26/2024) CLINICAL INDICATION: Female, 48 years old with history of B18.1 CHRONIC VIRAL HEPATITIS B WITHOUT DEL TA-AGENT; TECHNIQUE: Grayscale and color Doppler imaging of the right upper quadrant. FINDINGS: EXAM MEASUREMENTS: Liver Length: 16.1 cm Gallbladder Wall: Surgically absent cm CBD: 0.3 cm, color Doppler imaging was utilized to isolate the common bile duct for measurement. Right Kidney: 10.0x4.3x5.0 cm PETROGRAPHER NOTES: slightly limited exam due to overlying bowel Pancreas: Tail obscured by overlying bowel gas Liver: Increased attenuation Gallbladder: Surgically absent CBD: wnl Right Kidney: No hydronephrosis or masses seen The visualized portions of the pancreas unremarkable. Liver demonstrates diffuse increased attenuatio n without focal lesion definitively identified. Noncirrhotic morphology. Gallbladder is surgically ab sent. Common bile duct within normal limits. Right kidney demonstrates no hydronephrosis or solid mas s. No shadowing calculi. IMPRESSION: Noncirrhotic hepatic morphology without focal lesion. Diffuse hepatic steatosis. [facility], , 08/25/2024 9:08 AM
== END | disposition home or self-care (01) ==
LOC: RADUSWWP 08:30
PROVIDERS: ATTEND Internal Medicine Gastroenterology
DX: K76.0 Fatty (change of) liver, not elsewhere classified (principal); B18.1 Chronic viral hepatitis B without delta-agent
CPT/HCPCS: 76705

== ENCOUNTER → 2024-09-01 | Outpatient (CLI) | payer OTHER ==
--- NOTE | 2024-09-01 13:31 | XR ---
EXAMINATION TYPE: XR femur LT DATE OF EXAM: 09/01/2024 1:04 PM COMPARISON: None. CLINICAL INDICATION: Female, 48 years old with history of M25.552 PAIN IN LEFT HIP, pain TECHNIQUE: 2 view(s) obtained. FINDINGS: Femoral head articulates with the acetabulum. No acute fracture or dislocation evident. Knee joint sp dudley is preserved. No large joint effusion evident. Follow up exams can be performed as clinically indicated. IMPRESSION: 1. No acute osseous abnormality left femur [facility], , 09/01/2024 1:29 PM
--- NOTE | 2024-09-01 13:32 | XR ---
EXAMINATION TYPE: XR Hip LT and AP Pelvis DATE OF EXAM: 09/01/2024 1:04 PM COMPARISON: None. CLINICAL INDICATION: Female, 48 years old with history of M25.552 PAIN IN LEFT HIP, pain TECHNIQUE: 2 view(s) obtained. AP pelvis supplements exam FINDINGS: Femoral head articulates with the acetabulum. No acute fracture or dislocation evident. Joint spaces preserved. Right femoral head articulates with the acetabulum. Symphysis pubis and sacroiliac joints are normal. Electronic device overlies the right pelvis. Normal bowel gas is present. IMPRESSION: 1. No acute osseous abnormality left hip [facility], , 09/01/2024 1:30 PM
== END | disposition home or self-care (01) ==
LOC: RADXRMAIN 12:36
PROVIDERS: ATTEND Family Medicine
DX: M25.552 Pain in left hip (principal); Z91.81 History of falling
CPT/HCPCS: 73502

== ENCOUNTER → 2024-09-01 | Outpatient (CLI) | payer OTHER ==
--- NOTE | 2024-09-02 12:37 | MR ---
EXAMINATION TYPE: MR thoracic spine wo/w con DATE OF EXAM: 09/01/2024 8:04 PM COMPARISON: 06/04/2023 CLINICAL INDICATION: Female, 48 years old with history of M54.14 RADICULOPATHY, THORACIC REGION, mid back pain for 2 years, surgery 07-18-23, slipped and fell recently TECHNIQUE: Multiplanar, multiecho imaging on a 3.0 Neelam magnet is performed through the thoracic spi ne. IV Contrast: 9 mL Gadobutrol (None, if empty) FINDINGS: Postsurgical changes are present from fixation. This begins at the T7 level and appears to extend T11 . This limits portions of the evaluation. Portions through the levels of fixation are nondiagnostic. Spinal cord where visualized maintains normal signal through its visualized course. Vertebral body alignment is normal. Vertebral body heights are preserved. Disc heights are preserved. Disc hydration levels are preserved. No suspicious enhancement is evident. IMPRESSION: 1. No suspicious acute or subacute changes within the upper thoracic spine. 2. The levels of posterior fixation through the lower thoracic spine are nondiagnostic. [facility], , 09/02/2024 12:34 PM
== END | disposition home or self-care (01) ==
LOC: RADMRIMAIN 18:00
PROVIDERS: ATTEND Neurological Surgery
DX: M54.14 Radiculopathy, thoracic region (principal); W01.0XXA Fall on same level from slipping, tripping and stumbling without subsequent striking against object, initial encounter
CPT/HCPCS: 72157; A9585

== ENCOUNTER → 2024-10-19 | Outpatient (CLI) | payer OTHER ==
--- NOTE | 2024-10-19 09:10 | CT ---
EXAMINATION TYPE: CT chest wo con DATE OF EXAM: 10/19/2024 8:41 AM COMPARISON: 01/31/2023 CLINICAL INDICATION: Female, 48 years old with history of R91.1 SOLITARY PULMONARY NODULE; PHH, LUNG NODULE F/U, PT STAES SHE HAS GREEN/BLACK SPUTUM TECHNIQUE: Multiple axial images were obtained through the chest. Sagittal and coronal reformats were created for review. MIP was performed on a separate workstation. Contrast used: mL of (None if empty) Oral contrast used: (None if empty) CT DLP: 386.8 mGycm, Automated exposure control for dose reduction was used. FINDINGS: LUNGS/ PLEURA: Right upper lung 4 mm pulmonary nodule is not visualized on today's exam compared to . Right lower lung nodule not definitively visualized. Left pulmonary nodule not visualized. N o new or enlarging pulmonary nodules. No focal consolidation, pneumothorax or pleural effusion. AIRWAY: Patent and unremarkable. HEART: Size within normal limits. No significant coronary artery calcifications. MEDIASTINUM: No gross evidence of adenopathy. VASCULATURE: No aortic aneurysm. MUSCULOSKELETAL: Mild disc degeneration changes are present throughout the thoracolumbar spine second davy to osteophyte formation and facet joint arthropathy. Fixation hardware in the spine appears intac t. SOFT TISSUES/LYMPH NODES: Unremarkable. LOWER NECK: No significant findings. UPPER ABDOMEN: Diffuse low-attenuation to the liver parenchyma. The gallbladder surgically absent. Ap propriate dilation of the extrahepatic biliary system for a postcholecystectomy patient. IMPRESSION: 1. Prior pulmonary nodules are not definitively visualized on today's exam. No new or enlarging pulm onary nodules identified. Findings suggest infectious/inflammatory process on prior. 2. Hepatic steatosis. Follow up recommendations for incidental pulmonary nodules, if there are any, are per [employer] [employer] or [employer] [place] [employer]. https://radiopaedia.org/articles/xrtkvcnfta-mfnbxmf-rkrgfgugw-[email or web address]-[email or web address]?lang=us [email or web address], , 10/19/2024 9:08 AM
== END | disposition home or self-care (01) ==
LOC: RADCTMAIN 08:16
PROVIDERS: ATTEND Family Medicine
DX: R91.1 Solitary pulmonary nodule (principal); K76.0 Fatty (change of) liver, not elsewhere classified
CPT/HCPCS: 71250

== ENCOUNTER → 2024-11-06 | Outpatient (CLI) | payer OTHER ==
[2024-11-06 15:18] LABS: Basophils # (A) 0.04 X 10*3/uL (0.00-0.10); Basophils % (A) 0.7 %; Eosinophils # (A) 0.08 X 10*3/uL (0.04-0.35); Eosinophils % (A) 1.3 %; HCT 37.4 % (37.2-46.3); HGB 11.8 g/dL (12.0-15.0); Lymphocytes # (A) 2.07 X 10*3/uL (0.90-5.00); Lymphocytes % (A) 34.8 %; MCH 29.3 pg (27.0-32.0); MCHC 31.6 g/dL (32.0-37.0); MCV 92.8 FL (80.0-97.0); Monocytes # (A) 0.29 X 10*3/uL (0.20-1.00); Monocytes % (A) 4.9 %; NRBC Per 100 WBC 0 X 10*3/uL (0.00-0.01); Neutrophils # (A) 3.45 X 10*3/uL (1.80-7.70); Neutrophils % (A) 58.1 %; Platelet Count 239 X 10*3/uL (140-440); RBC 4.03 X 10*6/uL (4.10-5.20); RDW 13.7 % (11.5-14.5); WBC 5.94 X 10*3/uL (4.50-10.00)
[2024-11-06 15:44] LABS: ALT 56 U/L (8-44); AST 46 U/L (13-35); Albumin 4.4 g/dL (3.8-4.9); Albumin/Globulin Ratio 1.33 Ratio (1.60-3.17); Alkaline Phosphatase 176 U/L (41-126); BUN/Creat Ratio 21.89 Ratio (12.00-20.00); Blood Urea Nitrogen 19.7 mg/dL (9.0-27.0); Calcium 9.6 mg/dL (8.7-10.3); Carbon Dioxide 24.6 mmol/L (21.6-31.8); Chloride 102 mmol/L (96-109); Globulin 3.3 g/dL (1.6-3.3); Glucose 123 mg/dL (70-110); Potassium 4.5 mmol/L (3.5-5.5); Sodium 140 mmol/L (135-145); Total Bilirubin 0.3 mg/dL (0.3-1.2); Total Protein 7.7 g/dL (6.2-8.2)
== END | disposition home or self-care (01) ==
LOC: LABWHC1 09:05
PROVIDERS: ATTEND Nurse Practitioner Family
DX: B18.1 Chronic viral hepatitis B without delta-agent (principal)
CPT/HCPCS: 36415; 80053; 82105; 85025; 87517